=== PATIENT | female | born 1955 | race Caucasian/White ===

== ENCOUNTER 2022-08-14 18:23 | Emergency (ER) | payer MEDICARE, OTHER, SELFPAY ==
[2022-08-14 18:26] VITALS: BP 135/85; PULSE 78; RESP 16; TEMP 36.6; O2SAT 99
[2022-08-14 18:42] LABS: Appearance Urine Cloudy (Clear); Bilirubin Urine Negative (Negative); Blood Urine 3+ (Negative); Color Urine Yellow (Yellow); Glucose Urine UA Negative (Negative); Ketones Urine Negative (Negative); Leukocyte Esterase Ur 1+ LEU/UL (Negative); Nitrate Urine Negative (Negative); Protein Urine 1+ mg/dL (Negative); Specific Grav Ur >= 1.030 (1.001-1.035); Urobilinogen Urine 0.2 mg/dL (<2.0)
[2022-08-14 18:51] LABS: Mucus Urine Few /lpf; RBC Urine >75 /hpf (0-2); Squamous Epithelial Cell Urine Moderate /hpf (Few); WBC Urine >75 /hpf
[2022-08-14 18:57] LABS: Add Urine Microscopic? YES
--- NOTE | 2022-08-14 19:34 | PC.NURSE ---
Patient left at 1932
== END 2022-08-14 19:33 | disposition left against medical advice (07) ==
PROVIDERS: Emergency Provider Emergency Medicine; PCP Family Medicine
DX: R10.9 Unspecified abdominal pain (principal)
CPT/HCPCS: 81001; 87086; 99199

== ENCOUNTER 2022-10-30 08:31 | Outpatient (CLI) | payer MEDICARE, OTHER, SELFPAY ==
[2022-10-30 09:34] LABS: Basophils Percent Auto 0.8 % (0.2-1.2); Eosinophils Absolute Auto 0.3 K/mm3 (0-0.3); Eosinophils Percent Auto 7.5 % (0-4.4); Hematocrit 41.3 % (37.0-47.0); Hemoglobin 13.5 g/dL (12.0-15.0); Immature Granulocyte Absolute 0.01 K/mm3 (0.00-0.031); Immature Granulocyte Percent A 0.3 % (0-0.5); Lymphocytes Absolute Auto 1.22 K/mm3 (0.9-3.2); Lymphocytes Percent Auto 32.9 % (18.3-44.2); Mean Corpuscular HGB Conc 32.7 g/dl (32-36); Mean Corpuscular Volume 97.9 fl (80-100); Mean Platelet Volume 9.6 fl (7.4-10.4); Monocytes Absolute Auto 0.4 K/mm3 (0.1-0.6); Monocytes Percent Auto 11.6 % (2.6-8.5); Neutrophils Absolute Auto 1.7 K/mm3 (1.3-6.7); Neutrophils Percent Auto 46.9 % (45.5-73.1); Platelet Count Result 234 k/mm3 (150-375); Red Blood Count 4.22 M/mm3 (4.2-5.4); White Blood Count 3.7 K/mm3 (4.5-10.0)
[2022-10-30 09:47] LABS: Anion Gap 5 mmol/L (8-16); Aspartate Amino Transferase 26 U/L (14-36); Blood Urea Nitrogen 17 mg/dL (7-17); Calcium 8.4 mg/dL (8.4-10.2); Carbon Dioxide 29 mmol/L (22-30); Chloride 106 mmol/L (98-107); Estimated Glomerular Filt Rate > 60; Glucose 116 mg/dL (65-110); Potassium 4.1 mmol/L (3.4-5.0); Sodium 140 mmol/L (137-145)
== END 2022-10-30 08:32 | disposition home or self-care (01) ==
PROVIDERS: PCP Family Medicine; Visit Provider Orthopaedic Surgery
DX: M17.0 Bilateral primary osteoarthritis of knee (principal); Z79.1 Long term (current) use of non-steroidal anti-inflammatories (NSAID)
CPT/HCPCS: 36415; 80048; 84450; 85025

== ENCOUNTER 2022-12-25 00:32 | Day surgery (SDC) | payer MEDICARE, OTHER, SELFPAY ==
[2022-12-15 14:07] VITALS: BMI 27.8
--- NOTE | 2022-12-15 14:28 | PC.NURSE ---
PRE-OP INSTRUCTIONS, PLEASE READ CAREFULLY Report to the Outpatient Waiting Room, entrance under the green pavilion located off [facility], at time _0600_ on date _12/25/22_. Planned Procedure Time: _0730_. Time changes happen often and if your time is changed the preop area will call you the afternoon before. - You and your visitor will be asked to self-screen and do not enter if you have any COVID symptoms. - A mask is optional within the hospital at this time. Patients may have clear liquids (water, carbonated beverages, clear teas, apple juice) until 3 hours prior to surgery (0430 AM) with a maximum of 20 ounces. - No food from midnight until time of surgery Take the following medications with a SIP of water the morning of surgery: _NONE_ DO NOT STOP ANY OF YOUR OTHER PRESCRIPTION MEDICATIONS PRIOR TO SURGERY ?EXCEPT THE FOLLOWING Medications to discontinue per physician DR. GOMEZ - _MELOXICAM 7 DAYS PRIOR TO SURGERY, Date to take last dose _ Medications to discontinue per ANESTHESIA - _VITAMINS AND SUPPLEMENTS 3 DAYS PRIOR TO SURGERY, Date to take last dose 12/21/22_ Please no make-up, nail kinyarwanda, hairspray, perfume, deodorant, or body powder the day of surgery. No jewelry (including any body piercings) or valuables the day of surgery, leave them at home. Please take a shower or bath the night before, or the morning of, surgery with an antibacterial soap. Wear comfortable, loose fitting clothing. Children are encouraged to wear pajamas. - Jewelry must be removed prior to entering the operating room. Rings and piercings that are not removed may be cut off. - The hospital will not accept responsibility for valuables. - Please leave all valuables, including medications, at home the day of surgery. If you are going home after surgery, a licensed local intermodal truck driver must drive you home. - NO public transportation without another adult if you receive anesthesia. - We recommend that an adult stay with you for 24 hours following discharge. - We also recommend that you do not drive, make important decision, drink alcoholic beverages, or take any drugs that were not prescribed by your health care provider for at least 24 hours after your discharge time. For Pediatric surgeries, we recommend two adults accompany the child home. Follow any additional instructions given to you from your surgeon. If you or anyone in your household have experienced Covid symptoms in the past week, please notify your surgeon or the nurse liaison at the phone number below for possible testing. Telephone instructions given to and asked if any additional questions and then verbalized understanding. Patient advised to call surgeon office or pre surgery nurse liaison [phone] if any additional questions.
--- NOTE | 2022-12-24 16:11 | PM.IMHP ---
H&P: HPI History of Present Illness Date/Time: 12/24/22 16:11 Chief Complaint: Left foot pain and deformity Narrative: 67-year-old woman with left toe pain and deformity, cyst and heel pain. Unrelieved with conservative measures including cortisone injection, accommodative shoes, custom inserts, toe strapping. Pain with daily activity and any weight-bearing on the foot. Interferes with daily weight-bearing requirements. Presents for operative treatment. Review of Systems Constitutional: Constitutional: Denies fever(s) Eyes: Eyes: Denies blurry vision ENT: Reports Normal hearing present Cardiovascular: Cardiovascular: Denies chest pain and Denies dyspnea Respiratory: Respiratory: Denies dyspnea and Denies wheezing Gastrointestinal: Gastrointestinal: Denies abdominal pain Genitourinary: Genitourinary: Denies urinary urgency Musculoskeletal: Musculoskeletal: Reports as per HPI and Denies numbness Integumentary/Breasts: Skin/Breast: Denies changing lesions and Denies sores Neurologic: Reports Normal hearing present, Denies behavioral changes, Denies confusion, Denies numbness and Denies convulsions Psychiatric: Psychiatric: Denies behavioral changes, Denies confusion and Denies hallucinations Endocrine: Endocrine: Denies heat intolerance Hematologic/Lymphatic: Hematologic/Lymphatic: Denies easy bleeding Allergic/Immunologic: Allergic/Immunologic: Denies wheezing PMFSH Past Medical History Medical History Arthritis Claustrophobia Ganglion cyst of left foot Hallux rigidus of left foot Hearing loss Heart beat abnormality HLD (hyperlipidemia) Kidney stones 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 Plantar fasciitis of left foot Skin cancer SOB (shortness of breath) on exertion Surgical History Surgical History History of bladder surgery History of intestinal surgery Rectum History of toe surgery Family History Family History Other Arthritis Bone cancer Cerebrovascular accident Diabetes mellitus Lung cancer Social History Social History Smoking status: Never smoker Second hand tobacco smoke exposure: No Alcohol intake: never Substance use: never Substance use type: does not use Living arrangements: with family Additional living arrangements comments: LIVES WITH [facility] [phone], [place] [phone] Occupation/Education: occupation Gender identity (if verbalized by the patient): Female Spiritual care concerns: No Meds Home Medications and Allergies Home Medications Medication Instructions Recorded Confirmed Type Saccharomyces boulardii [Probiotic 1 tab-cap PO DAILY 01/09/22 12/15/22 History (S.boulardii)] ascorbate calcium (vitamin C) 500 500 mg PO DAILY 01/09/22 12/15/22 History mg tablet aspirin 81 mg capsule 81 mg PO DAILY 01/09/22 12/15/22 History evening primrose oil-linoleic 1 cap PO 3XW 01/09/22 12/15/22 History acid-gamolenic acid 1,000 mg capsule (Kimmell Oil) folic acid 800 mcg tablet 0.8 mg PO DAILY 01/09/22 12/15/22 History krill oil 350 mg-om-3 90 mg-dha 24 1 cap PO DIRECTED 01/09/22 12/15/22 History mg-epa 50 mg-phospholipids capsule multivitamin,tx-minerals 1 tablet PO DAILY 01/09/22 12/15/22 History polyethylene glycol 3350 17 17 g PO DAILY PRN constipation 01/09/22 12/15/22 History gram/dose oral powder (Miralax) rosuvastatin 10 mg tablet (Crestor) 10 mg PO DAILY 01/09/22 12/15/22 History vitamin E 200 unit capsule 400 unit PO DAILY 01/09/22 12/15/22 History meloxicam 15 mg tablet 15 mg PO DAILY PRN Pain 10/14/22 12/15/22 History alendronate 70 mg tablet 70 mg PO WEEKLY 12/15/22 12/15/22 History bitter melon extract 750 mg tablet 750 mg PO DAILY 12/15/22 12/15/22 History famotidine 20 m
[2022-12-25] VITALS (9 sets, daily range): BP systolic 126–134; BP diastolic 68–85; PULSE 58–81; RESP 12–20; TEMP 36.6; O2SAT 94–100
--- NOTE | ~2022-12-25 | XR_ITS ---
EXAMINATION: XR surgery orthopedic DATE: 12/25/2022 09:35 INDICATION: Left foot surgery TECHNIQUE: 3 fluoroscopic images of the left forefoot were obtained during procedure performed by Dr. Martin. Radiologist was not present for the imaging or procedure. The amount of fluoroscopy time us ed during this procedure was 0.1 minutes. COMPARISON: 10/14/2022 FINDINGS: First metatarsophalangeal arthrodesis with compression screw and dorsal plate and screw fixation. Ida rtening osteotomy at the neck of the second metatarsal which is fixed with a pair of dorsal to planta r directed screws. The second was also fixed with an axially directed percutaneous pin which extends from the distal phalanx across the middle and proximal phalanges of the head of the second metatarsal and into the diaphysis proximal to the osteotomy. Expected small amount of gas within the mildly wid ened second metatarsophalangeal joint space. Additional small amount of gas in the medial side of the first metatarsophalangeal joint. Alignment appears near-anatomic. No fractures identified. IMPRESSION: 1. Expected appearance post instrumented first metatarsophalangeal arthrodesis and likely shortening osteotomy at the neck of the second metatarsal. See procedure note for further detail. Reviewed, dictated and finalized at location A. IMPRESSION: 1. Expected appearance post instrumented first metatarsophalangeal arthrodesis and likely shortening osteotomy at the neck of the second metatarsal. See proce dure note for further detail.
--- NOTE | 2022-12-25 06:56 | WPDANESEPPF ---
Anes - Initial Pre Proc Eval Procedure: Operation Date: 12/25/22 07:30 Proposed Procedures p Left Hallux Metarsophalangeal Arthrodesis, - Deepak Martin MD s Left Second Crossover Toe Reconstruction, Excision Ganglion Cyst Left Foot, - Deepak Martin MD s Left Foot Ossatron Shock Wave Treatment - Deepak Martin MD Date/Time: 12/25/22 06:56 Surgeon: Deepak Martin MD Pre Op Diagnosis: left hallux rigidus/arthritis, crossover 2nd toe, Patient Data Age: 67 Gender: F Height: 1.65 m Weight: 75.9 kg Allergies Allergy/AdvReac Type Severity Reaction Status Date / Time ceftriaxone Allergy Intermediate HIVES Verified 12/25/22 06:42 Home Medications Medication Instructions Recorded Confirmed Type Saccharomyces boulardii [Probiotic 1 tab-cap PO DAILY 01/09/22 12/15/22 History (S.boulardii)] ascorbate calcium (vitamin C) 500 500 mg PO DAILY 01/09/22 12/15/22 History mg tablet aspirin 81 mg capsule 81 mg PO DAILY 01/09/22 12/15/22 History evening primrose oil-linoleic 1 cap PO 3XW 01/09/22 12/15/22 History acid-gamolenic acid 1,000 mg capsule (Scroggins Oil) folic acid 800 mcg tablet 0.8 mg PO DAILY 01/09/22 12/15/22 History krill oil 350 mg-om-3 90 mg-dha 24 1 cap PO DIRECTED 01/09/22 12/15/22 History mg-epa 50 mg-phospholipids capsule multivitamin,tx-minerals 1 tablet PO DAILY 01/09/22 12/15/22 History polyethylene glycol 3350 17 17 g PO DAILY PRN constipation 01/09/22 12/15/22 History gram/dose oral powder (Miralax) rosuvastatin 10 mg tablet (Crestor) 10 mg PO DAILY 01/09/22 12/15/22 History vitamin E 200 unit capsule 400 unit PO DAILY 01/09/22 12/15/22 History meloxicam 15 mg tablet 15 mg PO DAILY PRN Pain 10/14/22 12/15/22 History alendronate 70 mg tablet 70 mg PO WEEKLY 12/15/22 12/15/22 History bitter melon extract 750 mg tablet 750 mg PO DAILY 12/15/22 12/15/22 History famotidine 20 mg tablet 20 mg BID 12/15/22 12/15/22 History glucosamine 750 nw-tdvdzpugvik-ter 2 tablet PO HS 12/15/22 12/15/22 History no1 644 mg-C 30 mg-kailash 1 mg tablet (Osteo Bi-Flex Triple Strength) selenium 200 mcg capsule 200 mcg PO DAILY 12/15/22 12/15/22 History Patient hx anesthesia problems: none Family hx anesthesia problems: none Results Review: All pre-operative results and documents have been reviewed as part of the pre-operative evaluation. 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 Plantar fasciitis of left foot Skin cancer SOB (shortness of breath) on exertion Surgical History Surgical History History of bladder surgery History of intestinal surgery Rectum History of toe surgery Family History Family History Other Arthritis Bone cancer Cerebrovascular accident Diabetes mellitus Lung cancer Social History Social History Smoking status: Never smoker Second hand tobacco smoke exposure: No Alcohol intake: never Substance use: never Substance use type: does not use Living arrangements: with family Additional living arrangements comments: LIVES WITH [facility] [phone], [place] [phone] Occupation/Education: occupation Gender identity (if verbalized by the patient): Female Spiritual care concerns: No Anes - Eval Final PreProcedure Day of Procedure 12/25/22 06:56 Patient weight: overweight Heart: regular rate and rhythm Lungs: clear to auscultation Airway: Mallampati scale class II Neurological: alert and oriented Last oral intake: >/= 8 hours ASA classification: II Emergent: no Anesthetic plan: proceed A
--- NOTE | 2022-12-25 07:05 | WPDHPUPDATE1 ---
History and Physical Update Update Date/Time: 12/25/22 07:05 History and Physical has been reviewed, including an updated exam of the patient. There are NO changes in the patient's condition. Risks, benefits, and alternatives have been discussed and questions answered. Patient agrees to proceed with procedure.
[2022-12-25] MEDS: LACTATED RINGERS 1,000 ML 30 ML IV CONT ×2 (07:07→09:46)
[2022-12-25] MEDS: KETOROLAC 15 MG/ML VIAL (*BKC) IV PUSH (07:07)
[2022-12-25] MEDS: FAMOTIDINE 20 MG/2 ML VIAL IV PUSH (07:08)
[2022-12-25] MEDS: CLINDAMYCIN 900 MG/D5W 50 ML 900 MG/50 ML PIGGYBACK 50 MG IVPB (07:32)
[2022-12-25] MEDS: BUPivacaine HCL 0.5% 10 ML AMP 30 ML INFILTRATE (08:58)
--- NOTE | 2022-12-25 10:02 | W.PM.PROC2 ---
Procedure Note - Detailed Date of Procedure 12/25/22 Pre-op Diagnosis left hallux rigidus/arthritis, crossover 2nd toe, plantar fasciitis Post-op Diagnosis Same Procedure Performed Left hallux metatarsophalangeal arthrodesis, 2nd metatarsal osteotomy, heel Ossatron shockwave. Surgeon Deepak Martin MD Direct Sales Professional 1st circulation assistant Anesthesia General Indications 67-year-old woman with severe left hallux rigidus and degenerative changes from previous operative treatment as well as 2nd crossover toe deformity. Plantar heel pain. Failed conservative treatment with comminuted shoes, inserts and anti-inflammatories. Failed stretching regimen and therapy. Presents now for operative treatment. Description of Procedure Patient identified in the preoperative holding. Informed consent given. Operative extremity marked. Patient marked the area of maximal tenderness on the heel with indelible ink. Patient brought to the operating room where underwent general anesthesia by anesthesia team. Positioned supine on operating room table. Time-out performed confirming the patient, site of the surgery and the plan. Shockwave unit then positioned for the left heel. Ultrasound gel applied to the heel. Shockwave then applied to plantar heel at an average of 19 kV for 2000 shock deliveries. Concentrated around area of marked maximal tenderness as well as diffusely plantar fascia, heel area and Achilles tendon insertion. Ultrasound gel then removed. hallux and 2nd toe then addressed. Patient received intravenous antibiotics. Time-out performed confirming the patient, site of the surgery and the plan. foot prepped and draped usual sterile surgical fashion using a ChloraPrep skin solution. Foot and ankle exsanguinated and a calf tourniquet inflated to 225 mmHg. Longitudinal incision made dorsum of hallux centered over metatarsophalangeal joint Utilizing the previous surgical incision with a 15 blade knife. Hemostasis controlled electrocautery. Extensor hallucis tendon retracted laterally and a dorsal capsulotomy performed in line with the longitudinal skin incision. Soft tissue released off of the metatarsal to expose the joint. Extensive scar and fibrosis of the joint noted. Rongeur used to remove excess osteophytes. Reaming of the joint then performed with the Arthrex joint preparation reamers. Guide pin placed metatarsal and reaming performed size 18 mm. Guide pin then placed in the proximal phalanx and reaming performed to a size 18 mm. Wound thoroughly irrigated and debris removed. Plantar osteophytes carefully removed as well as the medial sesamoid. Joint then aligned and provisionally pinned. Alignment checked with image intensification 3rd fixation achieved with a dorsal locking plate with compression and a 3.5 mm lag screw. Image intensification confirmed final position. Wound irrigated and capsule closed with 0 Vicryl interrupted suture. Subcutaneous tissue repaired with 3-0 Monocryl interrupted suture and skin repaired with 4-0 nylon running suture. 2nd toe then addressed. Dorsal longitudinal incision made over the hallux metatarsophalangeal joint. Hemostasis controlled electrocautery. Extensor tendon retracted laterally and dorsal capsulotomy performed with 15 blade knife. The medial and lateral collateral ligaments were released. The joint was inspected. There was noted to be moderate degenerative changes on the dorsal aspect of the metatarsal head and the medial aspect of the proximal phalanx articular surface. The plantar plate was released off the metatarsal bluntly. Transverse osteotomy then performed from distal to proximal through the 2nd metatarsal articular surface. This allowed the metatarsal head to retract proximally. Once this had been completed the crossover deformity was noted to be reduced. Plantar plate was otherwise noted to be intact. The metatarsal head was provisionally pinned and checked with image intensification then fixed
--- NOTE | 2022-12-25 12:04 | SUR.PHASEII ---
postop shoe applied and education provider patient has walker in car.
== END 2022-12-25 12:02 | disposition home or self-care (01) ==
PROVIDERS: PCP Family Medicine; Visit Provider Orthopaedic Surgery
PROC: (CPT 28750; principal; 2022-12-25 07:30)
PROC: (CPT 28890; 2022-12-25 07:30)
PROC: (CPT 28890; 2022-12-25 07:30)
DX: M20.22 Hallux rigidus, left foot (principal); M20.5X2 Other deformities of toe(s) (acquired), left foot; M72.2 Plantar fascial fibromatosis; M19.072 Primary osteoarthritis, left ankle and foot; E78.5 Hyperlipidemia, unspecified; Z79.82 Long term (current) use of aspirin
CPT/HCPCS: 28890; 28750; 28308; 99199; C1713; J0131; J1100; J1885; J2250; J2370; J2405; J2704; J3010; J7120

== ENCOUNTER 2023-08-12 10:16 | Outpatient (CLI) | payer MEDICARE, OTHER, SELFPAY ==
--- NOTE | 2023-08-12 11:30 | NEURO_ITS ---
Impression: # Complains of pain and discomfort in feet. # Normal Nerve Conduction Study except absent left sural sensory response. # No Tarsal Tunnel Syndrome. # Needle/EMG exam not requested. # Clinical correlation recommended. Nerve Conduction Studies Anti Sensory Summary Table Stim Site NR Peak (ms) P-T Amp (?V) Site1 Site2 Delta-P (ms) Dist (cm) Eddie (m/s) Left Saphenous Anti Sensory (Ant Med Mall) 14cm 3.2 0.1 14cm Ant Med Mall 3.2 0.0 Right Saphenous Anti Sensory (Ant Med Mall) 14cm 3.0 5.6 14cm Ant Med Mall 3.0 0.0 Left Sup Fibular Anti Sensory (Ant Lat Mall) 14 cm 3.2 16.0 14 cm Ant Lat Mall 3.2 16.0 50 Right Sup Fibular Anti Sensory (Ant Lat Mall) 14 cm 3.7 8.4 14 cm Ant Lat Mall 3.7 16.0 43 Left Sural Anti Sensory (Lat Mall) NO RESPONSE Calf NR Calf Lat Mall 16.0 Right Sural Anti Sensory (Lat Mall) Calf 3.7 17.5 Calf Lat Mall 3.7 16.0 43 Motor Summary Table Stim Site NR Onset (ms) O-P Amp (mV) Site1 Site2 Delta-0 (ms) Dist (cm) Eddie (m/s) Left Lateral Plantar Motor (ADM) Med Mall 4.1 0.4 Right Lateral Plantar Motor (ADM) Med Mall 4.1 2.3 Left Peroneal Motor (Vastus Med) Ankle 3.8 1.6 Popit Ankle 8.6 41.0 48 Popit 12.4 1.5 Right Peroneal Motor (Vastus Med) Ankle 3.8 3.3 Popit Ankle 8.3 40.0 48 Popit 12.1 3.6 Left Tibial Motor (Abd Rojas Brev) Ankle 4.0 2.7 Knee Ankle 9.0 41.0 46 Knee 13.0 2.1 Right Tibial Motor (Abd Rojas Brev) Ankle 4.3 5.6 Knee Ankle 8.9 42.0 47 Knee 13.2 3.0 F Wave Studies NR F-Lat (ms) L-R F-Lat (ms) Left Peroneal (Mrkrs) (EDB) 58.55 0.47 Right Peroneal (Mrkrs) (EDB) 58.08 0.47 Left Tibial (Mrkrs) (Abd Hallucis) 58.80 0.42 Right Tibial (Mrkrs) (Abd Hallucis) 59.22 0.42 MTDD
== END 2023-08-12 10:17 | disposition home or self-care (01) ==
LOC: ANHNEURO 10:17
PROVIDERS: Visit Provider Podiatrist Foot & Ankle Surgery
DX: G60.3 Idiopathic progressive neuropathy (principal)
CPT/HCPCS: 95912

== ENCOUNTER 2024-11-11 08:31 | Outpatient (CLI) | payer MEDICARE, OTHER, SELFPAY ==
--- NOTE | ~2024-11-11 | CT_ITS ---
EXAMINATION: CT hip RT wo con DATE: 11/11/2024 08:57 INDICATION: Right hip pain. TECHNIQUE: Computed tomography (CT) of the right hip was performed without intravenous contrast. Auto mated exposure control and iterative reconstruction technique were employed. The dose-length product was 369.90 mGy-cm. COMPARISON: Pelvis and hip radiographs 06/22/2024 FINDINGS: Alignment is normal. No fracture. There is mild right hip osteoarthritis. IMPRESSION: 1. Mild right hip osteoarthritis. Reviewed, dictated and finalized at location A. [facility]
--- OUTSIDE RECORDS SUMMARY | 2024-11-11 08:47 | XMS_ITS | Encounter Summary ---
Author Organization [facility] Address [address] [place] [address] Care Team Providers Care Insurance Executive Name Role Phone Bishop Rocha MD Primary Care Provider [phone] Callie Johnston MD Unavailable [phone] Sylvester Gallagher MD Primary Care Provider [phone] Encounter Details Date Type Department Care Team (Late st Contact Info) Description 07/31/2021 Therapy Plan [facility] Family & Internal Medicine [address] [address] Bishop Rocha MD [address] [address] Social History Tobacco Use Types Packs/Day Years Used Date Smoking Tobacco: Never Smokeless Tobacco: Never Alcohol Use Standard Drinks/Week Comments No 0 (1 standard drink = 0.6 oz pur e alcohol) AUDIT-C Answer Date Recorded Frequency of Alcohol Consumption Never 09/09/2018 Average Number of Drinks Not on file 019 Frequency of Binge Drinking Not on file 11/2018 PHQ-2 Answer Date Recorded PHQ-2 Score - If the patient scores above 3, please move on to questions 3-9 0 12/24/2020 Education Answer Date Recorded What is the highest level of school you have completed or the highest degree you have received? GED or equivalent 11/2018 Comments No Sex and Gender Information Value Date Recorded Sex Assigned at Female 09/21/2018 7:05 PM FISHING CAPTAIN Legal Sex Female 7:34 PM CDT Gender Identity Female 09/21/2018 7:05 PM FISHING CAPTAIN Sexual Orientation Not on file Occupation Industry Job Start Date Job End Date Not on file Not on file Not on file Not on file COVID-19 Exposure Response Date Recorded In the last month, have you been in contact with someone who was confirmed or suspected to have Coronavirus / COVID-19? No / Unsure 07/22/2021 10:25 AM FISHING CAPTAIN documented as of this encounter Plan of Treatment Upcoming Encounters Date Type Department Care Team (Late st Contact Info) Description 01/04/2025 1:00 PM CDT Appointment [facility] [address] [place] [address] Callie Johnston MD [address] [place], [place] [id number] 01/25/2109 Scan HEALTH INFO SRVCS Scanned, Documents Lab (SCAN) documented as of this encounter Visit Diagnoses Diagnosis Age-related osteoporosis without current pathological fracture- Primary Senile osteoporosis documented in this encounter Additional Health Concerns Infection Onset Date Last Indicated Resolved Time COVID-19 Rule Out 09/11/2022 09/11/2022 09/11/2022 8:23 AM FISHING CAPTAIN COVID-19 Rule Out 09/11/2022 09/11/2022 09/13/2022 6:05 PM FISHING CAPTAIN COVID-19 Rule Out 08/01/2023 08/01/2023 08/01/2023 2:23 PM FISHING CAPTAIN COVID-19 Confirmed 08/01/2023 08/01/2023 12:32 AM FISHING CAPTAIN COVID-19 Rule Out 11/12/2023 11/12/2023 11/12/2023 8:00 AM FISHING CAPTAIN COVID-19 Rule Out 08/01/2024 08/01/2024 08/01/2024 7:43 AM FISHING CAPTAIN documented as of this encounter Care Teams Insurance Executive Relationship Specialty Start Date End Date Bishop Rocha MD PCP - General INTERNAL MEDICINE 09/09/18 09/30/21 [place] [address] [place], [place] [id number] PCP - General FAMILY PRACTICE 10/01/21 Callie Johnston MD [address] [place] [address] [place] [address] Consulting Physician SANAZ 06/27/20 documented as of this encounter
--- OUTSIDE RECORDS SUMMARY | 2024-11-11 08:48 | XMS_ITS | Encounter Summary ---
Author Organization [facility] Address [address] [place] [address] Care Team Providers Care Internet Ecommerce Specialist Name Role Phone Abner Graham MD Primary Care Provider [phone] Encounter Details Date Type Department Care Team (Late st Contact Info) Description 03/28/2020 Lab Requisition [facility] [address] [place] [address] Magdaleno Park MD [address] [place] [address] Social History Tobacco Use Types Packs/Day Years Used Date Smoking Tobacco: Never Alcohol Use Standard Drinks/Week Comments No 0 (1 standard drink = 0.6 oz pur e alcohol) Sex and Gender Information Value Date Recorded Sex Assigned at Not on file Gender Identity Not on file Sexual Orientation Not on file documented as of this encounter Plan of Treatment Not on file documented as of this encounter Procedures Procedure Name Priority Date/Time Associated Diagnosis Comments DERMATOPATHOLOGY Routine 03/27/2020 12:0 0 AM CDT documented in this encounter Results * DERMATOPATHOLOGY (03/27/2020 12:00 AM CDT) Case Report Dermatopathology Report Case: [id number] Authorizing Provider: Magdaleno Park MD Collected: 03/27/2020 12:00 AM Ordering Location: [facility] Received: 03/28/2020 01:53 PM Pathologist: Bernadette Hill MD Specimen: Skin, left distal anteromedial pretibia 0 5:49 PM CDT DERMATOPATHOLOGY LABORATORY Final Diagnosis Specimen A. SKIN, left distal anteromedial pretibia: SEBORRHEIC KERATOSIS, INFLAMED (L82.0) 0 5:49 PM CDT DERMATOPATHOLOGY LABORATORY Clinical History R/O SCC, BCC, ISK. 0 5:49 PM CDT DERMATOPATHOLOGY LABORATORY Gross Description Specimen A: Received is one formalin filled container labeled with the patient's name and designated left distal anteromedial pretibia. The specimen consists of a shave biopsy measuring [id number]. Jar 0. 0 5:49 PM CDT DERMATOPATHOLOGY LABORATORY Microscopic Description Specimen A. SKIN, left distal anteromedial pretibia: There is hyperkeratosis, parakeratosis, papillomatosis, and acanthosis of the epidermis. There is a lymphohistiocytic infiltrate within the papillary dermis that is focally lichenoid. 0 5:49 PM CDT DERMATOPATHOLOGY LABORATORY Disclaimer An external and internal positive and negative controls are appropriate for the histochemical, immunohistochemical and immunofluorescence stain(s) in this case (if any), except where stated explicitly. The performance characteristics of the stain(s) cited in this report were developed and its performance characteristic determined by the Dermatopathology Laboratory at [facility], directed by Dr. Sebastian Hill. These tests need not be, and therefore are not, approved by the [place] Food and Drug Administration. The tests are used for clinical purposes. Billing Codes Specimen Charges Stain Charges 72156 1 0 5:49 PM CDT DERMATOPATHOLOGY LABORATORY Embedded Images 0 5:49 PM CDT DERMATOPATHOLOGY LABORATORY Pathology/Cytolog y TISSUE SPECIMEN FROM SKIN / Unknown 03/27/2020 03/28/2020 1:53 PM CDT Magdaleno Park MD LAB - PATHOLOGY/CYTO LOGY ORDERABLES DERMATOPATHOLOGY LABORATORY [facility] - Department of Dermatology [facility]/[address] [phone] documented in this encounter Visit Diagnoses Not on filedocumented in this encounter Care Teams Internet Ecommerce Specialist Relationship Specialty Start Date End Date Abner Graham MD [address] [place] [address] PCP - General 03/28/20 documented as of this encounter
--- OUTSIDE RECORDS SUMMARY | 2024-11-11 08:48 | XMS_ITS | Referral Summary ---
Author Organization [facility] Address [address] [place] [address] Care Team Providers Care Web Operations Lead Name Role Phone Abner Graham MD Primary Care Provider [phone] Source Comments [facility],non-owned Affiliates and Associated Physician Practices is amultiple site organization consisting of ambulatory clinics and hospital sitesin [place], [place], [place] and [place]. This disclosure is being madepursuant to the Care Everywhere program and may not contain all information available regarding this patient. Last updated 18.[facility] Allergies Active Allergy Reactions Criticality Noted Date Comments Ceftriaxone Sodium 12/11/2009 Itching Medications * Be aware that medications may not be up to date on this document. Alwaysverify current medications with the patient. Medication Sig Dispensed Refills Start Date End Date Status esomeprazole (NEXIUM) 40 MG capsule Take 40 mg by mouth daily before breakfast. Active omeprazole (PRILOSEC) 20 MG capsule Take 20 mg by mouth. prn Active ezetimibe-simvastatin (VYTORIN) 10-10 MG tablet Take 1 Tab by mouth at bedtime. Active Other Mvi with potasium, am Active Other Mvi with b c calicium am Active docusate sodium (COLACE) 100 MG capsule Take 1 Cap by mouth 2 times daily. 60 2 01/08/2010 Active Active Problems Problem Noted Date Diagnosed Date Uterovaginal prolapse, incomplete 01/07/2010 Social History Tobacco Use Types Packs/Day Years Used Date Smoking Tobacco: Never Alcohol Use Standard Drinks/Week Comments No 0 (1 standard drink = 0.6 oz pur e alcohol) Sex and Gender Information Value Date Recorded Sex Assigned at Not on file Gender Identity Not on file Sexual Orientation Not on file Last Filed Vital Signs Vital Sign Reading Time Taken Comments Blood Pressure 130/82 11/21/2013 9:38 AM CDT Pulse 73 01/08/2010 8:30 AM CDT Temperature 37.1 C (98.7 F) 01/08/2010 8:30 AM CDT Respiratory Rate 20 01/08/2010 8:30 AM CDT Oxygen Saturation 96% 01/08/2010 8:30 AM CDT Inhaled Oxygen Concentration - - Weight 72.1 kg (159 lb) 11/21/2013 9:38 AM CDT Height 165.1 cm (5' 5 ) 11/21/2013 9:38 AM CDT Body Mass Index 26.46 11/21/2013 9:38 AM CDT Plan of Treatment Not on file Advance Directives * Full Code (Latest Code Status on File) Date Activated Date Inactivated Comments 01/07/2010 1:56 PM 01/09/2010 12:02 AM Care Teams Web Operations Lead Relationship Specialty Start Date End Date Abner Graham MD [address] [place] [address] PCP - General 03/28/20
--- OUTSIDE RECORDS SUMMARY | 2024-11-11 08:48 | XMS_ITS | Clinical Summary ---
Author Organization [address] Address [address] [place] [address] Care Team Providers Care Resin Filterer Name Role Phone Bishop Rocha MD Primary Care Provider + Allergies Active Allergy Reactions Criticality Noted Date Comments Ceftriaxone Other (See comments) Reaction: ITCHY AND RED, Medications rosuvastatin (CRESTOR) 10 mg tablet Take 1 tablet by mouth daily 06/27/2016 Active famotidine (PEPCID) 40 mg tablet 02/20/2021 Active rik fias-cemhxnab-t amolenic ac 1,000 mg capsule Take 1 capsule by mouth daily Active KRILL OIL ORAL Take by mouth Active folic acid (FOLVITE) 800 mcg tablet Take 1 tablet by mouth daily 06/21/2018 Active vitamin E acid succinate (vitamin E succinate) 268 mg (400 unit) tablet Take 1 tablet by mouth daily 06/21/2018 Active polyethylene glycol (MIRALAX) 17 gram/dose powder Take 17 g by mouth daily as needed Active aluminum-magnes ium hydroxide-simet hicone (MAALOX) suspension 200-200-20 mg/5 mL Take 10 mL by mouth as needed Active Lacto.acidophil us-Bif.animalis 32 billion cell capsule Take 1 capsule by mouth daily Active aspirin 81 mg enteric coated tablet Take 1 tablet by mouth daily Active Active Problems No known active problems Surgical History Surgery Date Site/Laterality Comments BLADDER SURGERY Medical History Medical History Date Comments Shoulder fracture GERD (gastroesophageal reflux disease) HL (hearing loss) Difficulty swallowing Family History Medical History Relation Name Comments Alzheimer's disease Brother Cancer Brother Heart disease Father Stroke Mother Cancer Sister Relation Name Status Comments Brother Father Mother Sister Social History Tobacco Use Types Packs/Day Years Used Date Smoking Tobacco: Never Smokeless Tobacco: Never Personal Safety Answer Date Recorded Getting School Help Needed Not on file 11/06 Comments Unknown Sex and Gender Information Value Date Recorded Sex Assigned at Not on file Legal Sex Female 3:27 AM MDM SR Gender Identity Not on file Sexual Orientation Not on file Obstetrics History Last Filed Vital Signs Vital Sign Reading Time Taken Comments Blood Pressure 121/64 08/23/2014 2:13 PM MDM SR Pulse 70 08/23/2014 2:13 PM MDM SR Temperature - - Respiratory Rate 17 05/28/2021 1:18 PM CDT Oxygen Saturation - - Inhaled Oxygen Concentration - - Weight 72.6 kg (160 lb) 05/28/2021 1:18 PM CDT Height 165.1 cm (5' 5 ) 05/28/2021 1:18 PM CDT Body Mass Index 26.63 05/28/2021 1:18 PM CDT Plan of Treatment Not on file Insurance [facility] Care Teams Resin Filterer Relationship Specialty Start Date End Date Bishop Rocha MD PCP - General Internal Medicine 05/07/21
--- OUTSIDE RECORDS SUMMARY | 2024-11-11 08:48 | XMS_ITS | Continuity of Care Document ---
Author Organization [facility] Address [address] [place] [address] Care Team Providers Care Drainlayer Name Role Phone Zelda Johnston MD Unavailable [phone] José Miguel Gallagher MD Primary Care Provider [phone] Encounters Date Type Department Care Team Description 08/01/2024 Travel 08/01/2024 7:40 AM MECHANICAL SERVICE REPRESENTATIVE Office Visit [facility] Family & Internal Medicine [facility] [address] [place] [address] Mari Crystal PA URI (Productive cough x 4 days ) 08/01/2024 12:52 PM MECHANICAL SERVICE REPRESENTATIVE - 08/01/2024 11:59 PM MECHANICAL SERVICE REPRESENTATIVE Hospital Encounter [facility] [address] [place] [address] Vangie Lay NP Discharge Disposition: Home or Self Care (Routine Discharge) 07/15/2024 12:40 PM MECHANICAL SERVICE REPRESENTATIVE - 07/15/2024 11:59 PM MECHANICAL SERVICE REPRESENTATIVE Hospital Encounter [facility] [address] [place] [address] Vangie Lay NP Discharge Disposition: Home or Self Care (Routine Discharge) 07/15/2024 10:00 AM MECHANICAL SERVICE REPRESENTATIVE Laboratory Only [facility] Family & Internal [facility] [address] [place] [address] Vangie Lay NP 07/15/2024 Travel 07/15/2024 9:20 AM MECHANICAL SERVICE REPRESENTATIVE Office Visit [facility] Family & Internal [facility] [address] [place] [address] Vangie Lay NP Breast Pain (Right side breast pain. Has Hx but states pain is getting worse. ) 07/07/2024 Travel 07/07/2024 9:26 AM CDT - 07/07/2024 11:59 PM CDT Hospital Encounter [facility] [address] [place] [address] Kg Patel MD Discharge Disposition: Home or Self Care (Routine Discharge) 06/20/2024 Travel 06/20/2024 11:20 AM CDT Office Visit [facility] Family & Internal [address] [address] José Miguel Gallagher MD Follow Up; Hyperlipidemia 06/06/2024 Travel 06/06/2024 8:34 AM CDT - 06/06/2024 11:59 PM CDT Hospital Encounter [facility] [address] [place] [address] José Miguel Gallagher MD Discharge Disposition: Home or Self Care (Routine Discharge) 05/13/2024 Telephone [facility] & Internal [address] [address] José Miguel Gallagher MD Question 04/18/2024 Orders Only [facility] General Surgery - [place] [address] [place] [address], [address] [place] [phone] Kg Patel MD 03/25/2024 5:05 PM CDT - 03/25/2024 11:59 PM CDT Hospital Encounter [facility] [address] [place] [address] Rustam Barraza PA Discharge Disposition: Home or Self Care (Routine Discharge) 03/25/2024 3:30 PM CDT - 03/25/2024 5:04 PM CDT Hospital Encounter [facility] [address] [place] [address] Rustam Barraza PA Discharge Disposition: Home or Self Care (Routine Discharge) 03/25/2024 3:00 PM CDT Laboratory Only [facility] Family & Internal [facility] [address] [place] [address] Rustam Barraza PA 03/25/2024 Travel 03/25/2024 3:20 PM CDT Office Visit [facility] Family & Internal [facility] [address] [place] [address] José Miguel Gallagher MD Bowen, Jeremy S, PA Foot Pain (Pt c/o WANG foot pain. Pt symptoms X 3 weeks/) 01/19/2024 Telephone [facility] Multispecialty Care - [facility] [address] [facility], [address] [place] [address] Madi Yanez MD Results 01/18/2024 Orders Only [facility] General Surgery [facility] [address] [facility], [address] [place] [address] Kg Patel MD 01/18/2024 Travel 01/18/2024 3:10 PM CDT Office Visit [facility] General Surgery [facility] [address] [place] [address], [address] [place] [address] Kg Patel MD Follow Up (Patient presents for post op follow up after right breast biopsy on 01/04/2024.) 01/04/2024 9:40 AM CDT - 01/04/2024 12:38 PM CDT Hospital Encounter [facility] [address] [place] [address] Kg Patel MD Discharge Disposition: Home or Self Care (Routine Discharge) 01/04/2024 Travel 01/04/2024 12:39 PM CDT - 01/04/2024 11:59 PM CDT Hospital Encounter [facility] [address] [place] [address] Kg Patel MD Discharge Disposition: Home or Self Care (Routine Discharge) 12/16/2023 Scan [facility] INFO SRVCS Scanned, [facility] 12/15/2023 Telephone [facility] [address] [place] [address], [address] [place] [address] Kg Patel MD Schedule Procedure 12/15/2023 Orders Only [facility] [address] [place] [address], [address] [place] [phone] Kg Patel MD 12/10/2023 Travel 12/10/2023 3:20 PM CDT Office Visit [address], [address] [place] [phone] Kg Patel MD Abnormal Mammography (Patient presents for abnormal mammogram of right breast consult. ) 11/24/2023 Travel 11/24/2023 9:20 AM CDT Office Visit [facility] Internal [address] [address] Trice Washington APRN Cough (Pt c/o productive cough x2-3 weeks, pt was seen here, hasn't improved) 11/20/2023 Travel 11/20/2023 8:00 AM CDT Office Visit [facility] Internal [address] [address] José Miguel Gallagher MD Suture Removal (Sitches removal ); Cough 11/16/2023 Travel 11/16/2023 2:00 PM CDT Office Visit [facility] Internal [address] [address] José Miguel Gallagher MD Suture Removal (Pt is here to get stiches removed on her left leg ) 11/12/2023 Travel 11/12/2023 7:40 AM MECHANICAL SERVICE REPRESENTATIVE Office Visit [facility] Family & Internal Medicine [facility] [address] [place] [address] Amari Dallas NP Congestion (Cough, headache) 11/08/2023 Travel 11/08/2023 10:18 AM MECHANICAL SERVICE REPRESENTATIVE - 11/08/2023 12:51 PM MECHANICAL SERVICE REPRESENTATIVE Emergency [facility] Emergency Room [address] [place] [address] Kimberly Hirsch MD Animal Bite (Son's dog ) Discharge Disposition: Home or Self Care (Routine Discharge) 10/23/2023 Scan [facility] [employer] INFO SRVCS Scanned, [facility] Mammogram (SCAN) 10/23/2023 Travel 10/23/2023 1:38 PM MECHANICAL SERVICE REPRESENTATIVE - 10/23/2023 11:59 PM MECHANICAL SERVICE REPRESENTATIVE Hospital Encounter [facility] [address] [place] [address] Zelda Johnston MD Discharge Disposition: Home or Self Care (Routine Discharge) 10/06/2023 Travel 10/06/2023 12:30 PM MECHANICAL SERVICE REPRESENTATIVE - 10/06/2023 11:59 PM MECHANICAL SERVICE REPRESENTATIVE Hospital Encounter [facility] [address] [place] [address] José Miguel Gallagher MD Discharge Disposition: Home or Self Care (Routine Discharge) 09/15/2023 Travel 09/15/2023 9:54 AM MECHANICAL SERVICE REPRESENTATIVE - 09/15/2023 11:59 PM MECHANICAL SERVICE REPRESENTATIVE Hospital Encounter [facility] [address] [place] [address] Zelda Johnston MD Discharge Disposition: Home or Self Care (Routine Discharge) 08/12/2023 Scan [facility] [employer] INFO SRVCS Scanned, [facility] EMG (SCAN) 08/10/2023 Transcribe Orders [facility] Pre Access Team [address] [place] [address] José Miguel Gallagher MD 08/05/2023 Telephone [facility] [address] [address] José Miguel Gallagher MD COVID-19 (Question ) 08/01/2023 Travel 08/01/2023 1:41 PM MECHANICAL SERVICE REPRESENTATIVE - 08/01/2023 2:48 PM MECHANICAL SERVICE REPRESENTATIVE Emergency [facility] Emergency Room [address] [place] [phone] Marium Olivier MD URI (COVID exposure) Discharge Disposition: Home or Self Care (Routine Discharge) 07/27/2023 Orders Only [address] [address] José Miguel Gallagher MD 07/23/2023 2:40 PM MECHANICAL SERVICE REPRESENTATIVE Allied Health/Nurse Visit [address] [address] José Miguel Gallagher MD Allied Health Visit (Flu shot) 07/23/2023 Travel 07/23/2023 10:52 AM MECHANICAL SERVICE REPRESENTATIVE - 07/23/2023 11:59 PM MECHANICAL SERVICE REPRESENTATIVE Hospital Encounter [facility] [address] [place] [address] José Miguel Gallagher MD Discharge Disposition: Home or Self Care (Routine Discharge) 06/02/2023 12:31 PM CDT - 06/02/2023 11:59 PM CDT Hospital Encounter [facility] [address] [place] [address] José Miguel Gallagher MD Discharge Disposition: Home or Self Care (Routine Discharge) 06/02/2023 9:00 AM CDT Laboratory Only [address] [address] José Miguel Gallagher MD 06/02/2023 Travel 06/02/2023 8:40 AM CDT Office Visit [facility] Internal [address] [phone] José Miguel Gallagher MD Follow Up; Medication Check 05/26/2023 Travel 05/26/2023 7:00 AM CDT Office Visit [address] [phone] Trice Washington APRN Abdominal Pain (Pt c/o lower abdominal pain (X 1 day)with diarrhea that started Thursday. Pt states stools look like red coffee grounds) 04/13/2023 Orders Only [address] [phone] José Miguel Gallagher MD 04/13/[address] [address] José Miguel Gallagher MD Orders 02/01/2023 Scan [facility] INFO SRVCS Scanned, [facility] 12/16/2022 Telephone [facility] [address] [place] [address] José Miguel Gallagher MD Error 12/16/2022 Travel 12/16/2022 10:00 AM CDT - 12/16/2022 11:59 PM CDT Hospital Encounter [facility] Cardiopulmonary Services [address] [place] [address] Funmi Mitchell MD Discharge Disposition: Home or Self Care (Routine Discharge) 10/30/2022 Scan [facility] INFO SRVCS Scanned, [facility] Lab (SCAN) 09/17/[address] [address] José Miguel Gallagher MD Medication 09/17/2022 Travel 09/17/2022 8:00 AM MECHANICAL SERVICE REPRESENTATIVE Office Visit [address] [address] Mari Crystal PA Cough (ACUTE SINUS PRESSURE / COUGH / BLOWING HER NOSE / PHELM AND MUCUS IS A YELLOWISH COLOR ) 09/11/2022 Telephone [facility] One Day Services [address] [place] [address] José Miguel Gallagher MD Called To Cancel Office Appt. (Pt cancelled Prolia injection) 09/11/2022 1:02 PM MECHANICAL SERVICE REPRESENTATIVE - 09/11/2022 11:59 PM MECHANICAL SERVICE REPRESENTATIVE Hospital Encounter [facility] Laboratory [id number] [place] [address] Mari Crystal PA Discharge Disposition: Home or Self Care (Routine Discharge) 09/11/2022 Travel 09/11/2022 8:00 AM MECHANICAL SERVICE REPRESENTATIVE Office Visit [facility] Family & Internal Medicine [facility] [address] [place] [address] Mari Crystal PA Sinus Problem (Cough. Neg covid test/) 08/18/2022 [facility] Message Enc [facility] Admitting [address] [place] [address] At[facility] Provider Discharge Follow-up 08/17/2022 2:50 PM MECHANICAL SERVICE REPRESENTATIVE Anesthesia Event [facility] [place] [address] [place] [address] Ciro Valencia MD Sharma, Lokesh, MD 08/17/2022 3:08 PM MECHANICAL SERVICE REPRESENTATIVE - 08/17/2022 4:47 PM MECHANICAL SERVICE REPRESENTATIVE Surgery [facility] OR [address] [place] [address] Leander Fisher MD CYSTOSCOPY URETEROSCOPY, STONE EXTRACTION, STENT INSERTION 08/15/2022 3:59 AM MECHANICAL SERVICE REPRESENTATIVE - 08/17/2022 5:12 PM MECHANICAL SERVICE REPRESENTATIVE Hospital Encounter [facility]opaedics [address] [place] [address] Miguelina Nguyen MD Discharge Disposition: Home or Self Care (Routine Discharge) 2022 8:11 PM MECHANICAL SERVICE REPRESENTATIVE - 08/15/2022 2:09 AM MECHANICAL SERVICE REPRESENTATIVE Emergency [facility] Emergency Room [address] [place] [address] Marium Olivier MD Back Pain Discharge Disposition: Transfer to [facility] 2022 Scan [facility] INFO SRVCS Scanned, [facility] Lab (SCAN) 2022 Travel 08/08/2022 Travel 08/08/2022 11:55 AM MECHANICAL SERVICE REPRESENTATIVE - 08/08/2022 11:59 PM MECHANICAL SERVICE REPRESENTATIVE Hospital Encounter [facility]amm[facility] [address] [place] [address] Zelda Johnston MD Discharge Disposition: Home or Self Care (Routine Discharge) 08/04/2022 Scan [facility] INFO SRVCS Scanned, [facility] 08/02/2022 Scan [facility] INFO SRVCS Scanned, [facility] 07/28/2022 Travel 07/28/2022 2:40 PM MECHANICAL SERVICE REPRESENTATIVE Office Visit [facility] Family [facility] Internal [address] [address] José Miguel Gallagher MD Acute Note (Cut arm on fer fence) 07/28/2022 Telephone [facility] Internal [address] [address] José Miguel Gallagher MD Information 07/28/2022 Telephone [facility] Internal [place] [address] [place] [address] José Miguel Gallagher MD Question 07/17/2022 Telephone [facility] Family & Internal [facility] [address] [place] [address] José Miguel Gallagher MD Medication Request 07/17/2022 Travel 07/17/2022 10:20 AM MECHANICAL SERVICE REPRESENTATIVE Office Visit [facility] Internal [address] [address] José Miguel Gallagher MD New Patient (Transfer from [place]) 07/10/2022 8:37 AM CDT - 07/10/2022 11:59 PM CDT Hospital Encounter [facility] [address] [place] [address] José Miguel Gallagher MD Discharge Disposition: Home or Self Care (Routine Discharge) 07/09/2022 Travel 07/09/2022 12:55 PM CDT - 07/09/2022 11:59 PM CDT Hospital Encounter [facility] [address] [place] [address] Zelda Johnston MD Discharge Disposition: Home or Self Care (Routine Discharge) 06/17/2022 Telephone [facility] Family & Internal Medicine [facility] [address] [place] [phone] José Miguel Gallagher MD Lab Order 02/10/2022 Travel 02/10/2022 10:57 AM CDT - 02/10/2022 11:25 AM CDT Hospital Encounter [facility] [address] [place] [address] José Miguel Gallagher MD Discharge Disposition: Home or Self Care (Routine Discharge) 02/06/2022 Therapy Plan [facility] One Day Services [address] [place] [address] José Miguel Gallagher MD 02/06/2022 Therapy Plan [facility] Family [facility] Internal [facility] [address] [place] [address] José Miguel Gallagher MD 02/06/2022 Telephone [facility] One Day Services [address] [place] [address] José Miguel Gallagher MD Orders (New Prolia order ) 12/16/2021 [facility] [address] [place] [address] Poonam Hamlin NP Medication Problem 12/16/2021 [facility]phone [facility] [address] [facility] [place] [address] Madi Yanez MD Medication Information 12/11/2021 Travel 12/11/2021 7:30 AM CDT - 12/11/2021 7:59 AM CDT Surgery [facility] Surgery [address] [place] [address] Madi Yanez MD COLONOSCOPY 12/11/2021 8:13 AM CDT Anesthesia Event [facility] [address] [place] [address] Yomaira Barragan, Perla Charles, ENRIKE 12/11/2021 7:08 AM CDT - 12/11/2021 9:33 AM CDT Hospital Encounter [facility] Surgery [address] [place] [address] Madi Yanez MD Discharge Disposition: Home or Self Care (Routine Discharge) 12/09/2021 Telephone [facility] One Day Services [address] [place] [address] Scanned, Documents Question 11/01/2021 Orders Only [facility] [address] [place] [address] Madi Yanez MD 10/31/2021 Telephone [facility] [address] [place] [address] Madi Yanez MD Reschedule 10/07/2021 12:27 PM MECHANICAL SERVICE REPRESENTATIVE - 10/07/2021 11:59 PM MECHANICAL SERVICE REPRESENTATIVE Hospital Encounter [facility] Laboratory [address] [place] [address] Sher Loera MD Discharge Disposition: Home or Self Care (Routine Discharge) 10/07/2021 Travel 10/07/2021 9:00 AM MECHANICAL SERVICE REPRESENTATIVE Office Visit [facility] Family & Internal Medicine [facility] [address] [place] [address] Sher Loera MD Follow Up (follow up from UTI. Just has a slight sensation, but is better) 10/01/2021 Telephone [facility] Family & Internal [facility] [address] [place] [address] José Miguel Gallagher MD Question 10/01/[address] [place] [address] Madi Yanez MD Schedule Surgery 09/26/2021 Travel 09/26/2021 7:47 AM MECHANICAL SERVICE REPRESENTATIVE - 09/26/2021 8:57 AM MECHANICAL SERVICE REPRESENTATIVE Emergency [facility] Emergency Room [address] [place], [place] [phone] Zenia Tate MD Urinary Frequency (Urinary frequency since 0300. Hx UTIs. Denies fevers, bodyaches, chills. ) Discharge Disposition: Home or Self Care (Routine Discharge) 09/04/2021 Orders Only [address] [place] [address] Madi Yanez MD 09/03/2021 Scan [employer] INFO SRVCS Scanned, Documents 09/03/2021 Travel 09/03/2021 1:20 PM MECHANICAL SERVICE REPRESENTATIVE Office Visit [facility] [address] [address] Madi Yanez MD Egd (Consult for EGD); Rectal Problem (rectal bleeding, wondering if she has divertitulitis); Rectocele; Consult For Colonoscopy; GERD [address] [place] [address] Madi Yanez MD Appointment Request 08/13/2021 Telephone [facility] Internal [address] [phone] Don Espinoza MD Other 08/07/2021 Telephone [facility] Internal [facility] [address] [place] [address] Don Espinoza MD Question 08/07/2021 Travel 08/07/2021 9:52 AM MECHANICAL SERVICE REPRESENTATIVE - 08/07/2021 10:14 AM MECHANICAL SERVICE REPRESENTATIVE Hospital Encounter [facility] [address] [place] [id number] Don Espinoza MD Discharge Disposition: Home or Self Care (Routine Discharge) 07/31/2021 Therapy Plan [facility] Family Internal [facility] [address] [place] [phone] Don Espinoza MD 07/30/2021 Telephone [facility] One Day Services [address] [place] [phone] Don Espinoza MD Orders (requesting new order for Prolia - overdue ) 07/22/2021 Orders Only [facility] Family Internal [address] [address] Don Espinoza MD 07/22/2021 Travel 07/22/2021 Telephone [facility] Internal [address] [address] Don Espinoza MD Medication Request 07/22/2021 10:27 AM MECHANICAL SERVICE REPRESENTATIVE - 07/22/2021 11:59 PM MECHANICAL SERVICE REPRESENTATIVE Hospital Encounter [facility] [address] [place] [address] Don Espinoza MD Discharge Disposition: Home or Self Care (Routine Discharge) 07/20/2021 Orders Only [facility] Family [facility] Internal Medicine [facility] [address] [place] [address] Don Espinoza MD 07/18/2021 Travel 07/18/2021 10:40 AM MECHANICAL SERVICE REPRESENTATIVE - 07/18/2021 11:00 AM MECHANICAL SERVICE REPRESENTATIVE Surgery [facility] [place] [address] Madi Yanez MD EGD WITH MASON 48FR AND 50FR DILATION 07/18/2021 10:57 AM MECHANICAL SERVICE REPRESENTATIVE Anesthesia Event [facility] [address] Daren Dupree MD 07/18/2021 9:30 AM MECHANICAL SERVICE REPRESENTATIVE - 07/18/2021 11:58 AM MECHANICAL SERVICE REPRESENTATIVE Hospital Encounter [facility] [place] [address] Madi Yanez MD Discharge Disposition: Home or Self Care (Routine Discharge) 07/12/2021 12:50 PM CDT - 07/12/2021 11:59 PM CDT Hospital Encounter [facility] [id number] [place] [phone] Don Espinoza MD Discharge Disposition: Home or Self Care (Routine Discharge) 07/12/2021 Travel 07/12/2021 10:00 AM CDT Office Visit [facility] Family [facility] Internal Medicine [facility] [address] [place] [phone] Don Espinoza MD Physical (Pt here for annual physical); Imm/Inj (flu vaccine) 07/10/2021 Travel 07/09/2021 Travel 07/09/2021 10:30 AM CDT - 07/09/2021 11:59 PM CDT Hospital Encounter [facility] [address] [place] [address] Zelda Johnston MD Discharge Disposition: Home or Self Care (Routine Discharge) 07/02/2021 Telephone [facility] Family [facility] Internal Medicine [address] [address] Don Espinoza MD Error 06/28/2021 Travel 06/28/2021 12:54 PM CDT - 06/28/2021 11:59 PM CDT Hospital Encounter [facility] [address] [place] [address] Zelda Johnston MD Discharge Disposition: Home or Self Care (Routine Discharge) 06/27/2021 Orders Only [facility] - [address], [address] [place] [phone] Madi Yanez MD 06/20/[address] [place] [address] Madi Yanez MD Schedule Procedure 05/30/2021 Scan [employer] SRVCS Scanned, Documents 05/28/[address] [place] [phone] Madi Yanez MD Referral 05/15/2021 Travel 05/15/2021 10:00 AM CDT Office Visit [facility] Family & Internal Medicine [facility] [address] [place] [address] Mari Crystal, PA Sinus Problem 05/01/[address] [place] [address] Madi Yanez MD Results 04/30/2021 Travel 04/30/2021 10:44 AM CDT - 04/30/2021 11:59 PM CDT [place] [address] [place] [address] Madi Yanez MD Discharge Disposition: Home or Self Care (Routine Discharge) 04/26/2021 Orders Only [facility] Multispecialty Care - [facility] [address] [facility] [place] [address] Madi Yanez MD 04/26/2021 Travel 04/26/2021 8:52 AM CDT - 04/26/2021 9:19 AM CDT Surgery [facility] [address] [place] [address] Madi Yanez MD EGD with attempted dilation 04/26/2021 9:19 AM CDT Anesthesia Event [facility] [address] [place] [address] Emma Quevedo, Perla Charles, BOOKMOBILE DRIVER 04/26/2021 7:59 AM CDT - 04/26/2021 10:37 AM CDT Hospital Encounter [facility] [address] [place] [address] Madi Yanez MD Discharge Disposition: Home or Self Care (Routine Discharge) 04/24/2021 Travel 04/24/2021 9:44 AM CDT - 04/24/2021 11:59 PM CDT Hospital Encounter [facility] [address] [place] [address] Madi Yanez MD Discharge Disposition: Home or Self Care (Routine Discharge) 04/18/2021 Telephone [facility] Mult[facility]ty Care - [facility] [address] [facility] [place] [address] Madi Yanez MD Reschedule 04/16/2021 Orders Only [facility] Multispecialty Care - [address] [place] [address] Madi Yanez MD 04/12/2021 Travel 04/12/2021 1:00 PM CDT Office Visit [facility] [address] [address] Madi Yanez MD Dysphagia (pt is here dysphagia and lump on side of throat) 03/06/2021 Travel 03/06/2021 8:40 AM CDT Office Visit [facility] Family & Internal Medicine [address] [address] Don Espinoza MD Swelling (Pt c/o lump on upper chest/neck. Pt symptoms X 1 week) 02/22/2021 [facility] [address], [address] [place] [address] Madi Yanez MD Appointment Request 01/01/2021 Travel 01/01/2021 9:29 AM CDT - 01/01/2021 9:59 AM CDT Hospital Encounter [facility] Surgery [address] [place] [address] Don Espinoza MD Discharge Disposition: Home or Self Care (Routine Discharge) 12/25/2020 Therapy Plan [facility] One Day Services [address] [place] [address] Don Espinoza MD 12/24/2020 Travel 12/24/2020 11:40 AM CDT Office Visit [facility] [address] [address] Don Espinoza MD Abdominal Pain (Pt c/o low abdominal pain with blood in stool X 3 days. ) 10/15/2020 Telephone [facility] Medicine [address] [place] [address] Don Espinoza MD Question 07/17/2020 Travel 07/17/2020 9:01 AM MECHANICAL SERVICE REPRESENTATIVE - 07/17/2020 11:59 PM MECHANICAL SERVICE REPRESENTATIVE Hospital Encounter [facility] [address] [place] [address] Don Espinoza MD Discharge Disposition: Home or Self Care (Routine Discharge) 06/29/2020 Therapy Plan [facility] One Day Services [address] [place] [address] Don Espinoza MD 06/29/2020 Therapy Plan [facility] One Day Services [address] [place] [address] Don Espinoza MD 06/29/2020 Therapy Plan [facility] One Day Services [address] [place] [address] Don Espinoza MD 06/29/2020 Orders Only [facility] [address] [place] [address] Don Espinoza MD 06/27/2020 1:35 PM CDT - 06/27/2020 11:59 PM CDT Hospital Encounter [facility] [address] [place] [address] Don Espinoza MD Discharge Disposition: Home or Self Care (Routine Discharge) 06/27/2020 Travel 06/27/2020 11:20 AM CDT Office Visit [facility] Family & Internal Medicine [facility] [address] [place] [address] Don Espinoza MD Annual (yearly check up) 05/18/2020 Travel 05/18/2020 12:16 PM CDT - 05/18/2020 11:59 PM CDT Hospital Encounter [facility] [address] [place] [address] Zelda Johnston MD Discharge Disposition: Home or Self Care (Routine Discharge) 09/30/2019 Telephone [facility] Family & Internal [facility] [address] [place] [address] Don Espinoza MD Billing Issue 09/06/2019 Orders Only [facility] [address] [place] [address] Don Espinoza MD 08/30/2019 Orders Only [facility] [address] [place] [address] Don Espinoza MD 08/29/2019 Telephone [facility] [address] [place] [address] Don Espinoza MD Medication Problem 08/02/2019 10:10 AM MECHANICAL SERVICE REPRESENTATIVE - 08/02/2019 10:40 AM MECHANICAL SERVICE REPRESENTATIVE Hospital Encounter [facility] Surgery [address] [place] [address] Don Espinoza MD Discharge Disposition: Home or Self Care (Routine Discharge) 07/25/2019 Telephone [facility] [address] [place] [address] Don Espinoza MD Other 06/29/2019 Therapy Plan [facility] [address] [place] [address] Don Espinoza MD 06/29/2019 1:15 PM CDT - 06/29/2019 11:59 PM CDT Hospital Encounter [facility] [address] [place] [address] Don Espinoza MD Discharge Disposition: Home or Self Care (Routine Discharge) 06/29/2019 11:40 AM CDT Office Visit [facility] [address] [place] [address] Don Espinoza MD Fall (left knee, bleeding. fell left hand swollen and bruised. landed on left knee. kicked the curb and fell ); Imm/Inj (PN shot) 06/21/2019 11:00 AM CDT Office Visit [facility] Internal [facility] [address] [place] [address] Don Espinoza MD Follow Up (6 months); Refill Request (famotidine and alendronate to [facility] in [facility]) 06/08/2019 1:12 PM CDT - 06/08/2019 11:59 PM CDT Hospital Encounter [facility] [address] [place] [address] Don Espinoza MD Discharge Disposition: Home or Self Care (Routine Discharge) 06/08/2019 1:08 PM CDT - 06/08/2019 1:11 PM CDT Hospital Encounter [address] [address] Don Espinoza MD Discharge Disposition: Home or Self Care (Routine Discharge) 06/08/2019 9:40 AM CDT Office Visit [facility] [address] [place] [address] Don Espinoza MD Pain (in the left kidney area going up to the left shoulder blade) 04/29/2019 12:12 PM CDT - 04/29/2019 11:59 PM CDT Hospital Encounter [facility] [address] [place] [address] Zeinab Zimmer, FARHAD Discharge Disposition: Home or Self Care (Routine Discharge) 02/24/2019 Telephone [facility] Internal [facility] [address] [place] [address] Don Espinoza MD Question 02/21/2019 Orders Only [facility] Internal [facility] [address] [place] [address] Don Espinoza MD 02/14/2019 10:34 AM CDT - 02/14/2019 11:59 PM CDT Hospital Encounter [facility] [address] [place] [address] Discharge Disposition: Home or Self Care (Routine Discharge) 02/14/2019 10:30 AM CDT - 02/14/2019 10:33 AM CDT Hospital Encounter [facility] Diagnostic Imaging [address] [place] [address] Don Espinoza MD Discharge Disposition: Home or Self Care (Routine Discharge) 02/03/2019 Telephone [facility] [address] [place] [address] Don Espinoza MD Question 01/25/2019 Scan HEALTH INFO SRVCS Scanned, Documents 01/21/2019 Telephone [facility] Multispecialty [facility] [address] [facility], [address] [place] [address] Zeinab Wang RN Results 01/19/2019 EBD SPECIAL EDUCATION TEACHER ONLY [facility] [place] [phone] Scanned, Documents 01/17/2019 Abstract [facility] Laboratory [address] [place] [address] Don Espinoza MD 01/17/2019 10:20 AM CDT Office Visit [facility] [address] [place] [address] Don Espinoza MD Insect Bite (tick bite a week ago. has a bump and redness. itchy. using benadryl and alcohol located mid back) 01/13/2019 Scan HEALTH INFO SRVCS Scanned, Documents 01/13/2019 Scan HEALTH INFO SRVCS Scanned, Documents 12/20/2018 Abstract [facility] [address] [place] [address] Don Espinoza MD 12/20/2018 11:00 AM CDT Office Visit [facility] Family [facility] Internal [facility] [address] [place], [place] [address] Don Espinoza MD Follow Up (6 month. ); Lump (lower right side of abdomen) 12/13/2018 Abstract [facility] One Day Services [address] [place] [address] Madi Yanez MD 12/10/2018 Scan MG HEALTH INFO SRVCS Scanned, Documents Form (SCAN) ([facility] - SURGERY SCHEDULING FORM); Office Documentation (SCAN)* ([facility] - PATIENT DEMOGRAPHICS); Report (SCAN) ([facility] - PROGRESS NOTES - GASTROENTEROLOGY INITIAL VISIT: GERD AND CONSTIPATION) 12/10/2018 1:20 PM CDT Office Visit [facility] [place] [address] [place] [address] Madi Yanez MD GERD; Constipation (medication related) 10/27/2018 Telephone [facility] Multispecialty Care - [facility] [address] [facility], [address] [place] [address] Maid Yanez MD Reschedule (Appointment) 10/20/2018 Abstract [facility] Diagnostic Imaging [address] [place] [address] Sima Hansen PA-C 10/20/2018 Scan MG HEALTH INFO SRVCS Scanned, Documents CT (SCAN) 10/18/2018 Abstract [facility] [address] [place] [address] Luis Manuel Blossom Lyon, CRACKING UNIT OPERATOR 10/18/2018 Scan MG HEALTH INFO SRVCS Scanned, Documents Image (SCAN) 09/24/2018 10:40 AM MECHANICAL SERVICE REPRESENTATIVE Office Visit [facility] Family [facility] Internal Medicine [facility] [address] [place] [address] Anna Dickey MD Sinus Problem (has been seen twice for sinus congestion and cough, was given an antibiotic, then a higher dose one, and doesnt feel better, wants a steriod shot) 09/23/2018 Telephone [facility] Internal [facility] [address] [place] [address] Francoise Nicole, EDGE PLUGGER Other 09/21/2018 10:40 AM MECHANICAL SERVICE REPRESENTATIVE Office Visit [facility] Internal [facility] [address] [place] [address] Francoise Nicole EDGE PLUGGER URI (cough worse @ night, scratchy throat) 09/10/2018 Telephone [facility] Internal [facility] [address] [place] [address] Don Espinoza MD Results 09/09/2018 Abstract [facility] [address] [place] [address] Don Espinoza MD 09/09/2018 Orders Only [facility] Internal [facility] [address] [place] [address] Don Espinoza MD 09/09/2018 11:40 AM MECHANICAL SERVICE REPRESENTATIVE Office Visit [facility] Internal [facility] [address] [place] [address] Don Espinoza MD Fall (Pt fell going down steps yestereday) 07/13/2018 Abstract [facility] Md Generic ConversionMD 07/12/2018 Scan HEALTH Fragegg SRVCS Scanned, Documents 07/12/2018 Abstract [facility] Conrad Tomas Generic ConversionMD 07/07/2018 Scan HEALTH INFO SRVCS Scanned, Documents 07/07/2018 Abstract [facility] Md Generic ConversionMD 07/05/2018 Abstract [facility] Md Generic ConversionMD 07/02/2018 Abstract [facility] Md Generic ConversionMD 06/29/2018 Abstract [facility] Md Generic ConversionMD 06/25/2018 Abstract [facility] [address] [place] [address] Estee Lopes MD 06/24/2018 Abstract [facility] Md, Generic Conversion, 06/21/2018 Abstract [facility] Family & Internal Medicine [facility] [address] [place] [address] Don Espinoza MD 06/11/2018 Scan HEALTH INFO SRVCS Scanned, Documents 05/24/2018 Scan [facility] Md Generic Conversion, 05/17/2018 Abstract [facility] [address] [facility] [place] [address] Zeinab Zimmer NP 05/17/2018 Abstract [facility] Conversion Md Generic Conversion, 01/14/2018 Abstract [facility] [address] [place] [address] Md Generic Conversion, 12/29/2017 Abstract [facility] [address] [place] [address] Estee Lopes MD 12/29/2017 Scan HEALTH INFO SRVCS Scanned, Documents 12/29/2017 Abstract [facility] Md Generic Conversion, 11/13/2017 Abstract [facility] Conversion Alonso Singh MD 11/09/2017 Scan HEALTH INFO SRVCS Scanned, Documents 11/09/2017 Abstract [facility] Conversion Md Generic ConversionMD 11/09/2017 Abstract [facility] Conversion Md Generic ConversionMD 09/10/2017 Scan HEALTH INFO SRVCS Scanned, Documents 09/10/2017 Abstract [facility] Conversion Md Generic Conversion, 07/01/2017 Abstract [facility] [address] [place] [address] Alonso Singh MD 07/01/2017 Scan HEALTH INFO SRVCS Scanned, Documents 07/01/2017 Abstract [facility] Conversion Md Generic ConversionMD 07/01/2017 Abstract [facility] Conversion Md Generic ConversionMD 06/17/2017 Abstract [facility] Conversion Alonso Singh MD 06/17/2017 Abstract [facility] Conversion Md Generic ConversionMD 06/08/2017 Abstract [facility] Conversion Alonso Singh MD 06/05/2017 Abstract [facility] [address] [place] [address] Alonso Singh MD 06/05/2017 Scan MG HEALTH INFO SRVCS Scanned, Documents 06/05/2017 Abstract [facility] Conversion Md Generic ConversionMD 06/04/2017 Abstract [facility] Conversion Md Generic ConversionMD 06/02/2017 Scan MG HEALTH INFO SRVCS Scanned, Documents 06/02/2017 Abstract [facility] Conversion Md Generic ConversionMD 04/16/2017 Abstract [facility] [address] [place] [address] Aleksandr Pat MD 01/14/2017 Abstract [facility] Conrad Tomas Generic MD Conrad 01/09/2017 Abstract [facility] [address] [place] [address] Zeinab Zimmer NP 01/09/2017 Abstract [facility] Ro Loera MD 12/23/2016 Abstract [facility] [address] [place] [address] Estee Lopes MD 12/23/2016 Scan [facility] HEALTH INFO SRVCS Scanned, Documents 12/15/2016 Scan [facility] HEALTH INFO SRVCS Scanned, Documents 12/15/2016 Abstract [facility] Conversion Md Generic ConversionMD 10/22/2016 Scan MG HEALTH INFO SRVCS Scanned, Documents 10/22/2016 Abstract [facility] Conversion Md Generic ConversionMD 10/22/2016 Abstract [facility] Conversion Md Generic ConversionMD 09/22/2016 Abstract [facility] Conrad Tomas Generic ConversionMD 07/15/2016 Abstract [facility] General Surgery [facility] [address] [facility], [address] [address] Maurisio Escalante MD 07/11/2016 Abstract [facility] 07/09/2016 Scan MG HEALTH INFO SRVCS Scanned, Documents 07/09/2016 Abstract [facility] Christopher Tomas MD 07/08/2016 Abstract [facility] [address] [place] [address] Maurisio Escalante MD 07/08/2016 Abstract [facility] General Surgery [facility] [address] [facility], [address] [place] [phone] Maurisio Escalante MD 06/27/2016 Abstract [facility] [address] [facility], [address] [phone] Maurisio Escalante MD 06/11/2016 Scan MG HEALTH INFO SRVCS Scanned, Documents 05/14/2016 Scan [facility] HEALTH INFO SRVCS Scanned, Documents 01/24/2016 Abstract [facility] Christopher Tomas MD 01/23/2016 Abstract [facility] [address] [place] [address] Madi Yanez MD 01/23/2016 Abstract [facility] Madi Yanez MD 01/17/2016 Abstract [facility] [address] [place] [address] Madi Yanez MD 01/17/2016 Scan [facility] HEALTH INFO SRVCS Scanned, Documents 01/17/2016 Abstract [facility] Madi Yanez MD 01/17/2016 Abstract [facility] Madi Yanez MD 01/04/2016 Abstract [facility] [address] [place] [address] Zeinab Zimmer NP 12/28/2015 Scan [facility] HEALTH INFO SRVCS Scanned, Documents 12/28/2015 Scan [facility] HEALTH INFO SRVCS Scanned, Documents 12/28/2015 Abstract [facility] Conrad Tomas Generic MD Conrad 12/25/2015 Abstract [facility] [address] [place] [address] Estee Lopes MD 12/25/2015 Scan [facility] HEALTH INFO SRVCS Scanned, Documents 12/25/2015 Abstract [facility] Conrad Tomas Generic MD Conrad 12/10/2015 Scan [facility] HEALTH INFO SRVCS Scanned, Documents 11/26/2015 Scan [facility] HEALTH INFO SRVCS Scanned, Documents 06/06/2015 Abstract [facility] Angely Sandhu MD 05/29/2015 Abstract [facility] [address] [place] [address] Anila Pereira MD 05/29/2015 Scan MG HEALTH INFO SRVCS Scanned, Documents 05/29/2015 Abstract [facility] Multispecialty Care - [facility] [address] [place] [address] Angely Sandhu MD 04/30/2015 Scan [facility] HEALTH INFO SRVCS Scanned, Documents 01/10/2015 Scan [facility] HEALTH INFO SRVCS Scanned, Documents Colonoscopy/EGD (SCAN) 01/10/2015 Abstract [facility] [address] [place] [address] Madi Yanez MD 01/10/2015 Abstract [facility] Md Generic MD Conrad 01/08/2015 Abstract [facility] Md Generic MD Conrad 01/04/2015 Abstract [facility] [address] [place] [address] Madi Yanez MD 01/02/2015 Scan MG HEALTH INFO SRVCS Scanned, Documents 12/27/2014 Abstract [facility] Md Generic ConversionMD 12/15/2014 Abstract [facility] [address] [place] [address] Zeinab Zimmer NP 11/28/2014 Scan [facility] HEALTH INFO SRVCS Scanned, Documents 11/28/2014 Abstract [facility] Md Generic MD Cornad 11/15/2014 Scan MG HEALTH INFO SRVCS Scanned, Documents 10/09/2014 Abstract [facility] 07/17/2014 Abstract [facility] [address] [place] [address] Prasad Alfaro MD 07/17/2014 Abstract [facility] Medical [facility] Prasad Alfaro MD 07/13/2014 Scan MG HEALTH INFO SRVCS Scanned, Documents 07/03/2014 Scan [facility] HEALTH INFO SRVCS Scanned, Documents 06/27/2014 Scan [facility] HEALTH INFO SRVCS Scanned, Documents 06/27/2014 Scan [facility] HEALTH INFO SRVCS Scanned, Documents 06/27/2014 Scan [facility] HEALTH INFO SRVCS Scanned, Documents 06/23/2014 Abstract [facility] Abner Graham MD 06/05/2014 Abstract [facility] Medical [facility] Abner Graham MD 05/29/2014 Abstract [facility] 04/22/2014 Abstract [facility] [address] [place] [address] 04/22/2014 Abstract [facility] Medical [facility] Abner Graham MD 12/28/2013 Abstract [facility] 12/23/2013 Abstract [facility] General Surgery - [place] [address] [facility] [place] [address] Prasad Alfaro MD 12/21/2013 Abstract [facility] [address] [place] [address] Prasad Alfaro MD 12/21/2013 Abstract [facility] Prasad Alfaro MD 12/21/2013 Abstract [facility] Prasad Alfaro MD 12/21/2013 Abstract [facility] Prasad Alfaro MD 12/14/2013 Abstract [facility] General Surgery - [place] [address] [facility] [address] [place] [address] Prasad Alfaro MD 12/13/2013 Abstract [facility] 12/08/2013 Abstract [facility] [address] [place] [address] Zeinab Zimmer, EDGE PLUGGER 12/02/2013 Abstract [facility] [address] [place] [address] Zeinab Zimmer, EDGE PLUGGER 12/02/2013 Abstract [facility] Medical [facility] Roland Matos, CRACKING UNIT OPERATOR 11/24/2013 Abstract [facility] [address] [place] [address] Christopher Tomas MD 10/14/2013 Abstract [facility] [address] [place] [address] Roland Matos, CRACKING UNIT OPERATOR 10/14/2013 Abstract [facility] Family & Internal [facility] [address] [place] [address] Abner Graham MD 09/23/2013 Abstract [facility] [address] [place] [address] Roland Matos, CRACKING UNIT OPERATOR 09/23/2013 Abstract [facility] Internal [facility] [address] [place] [phone] Roland Matos, MONICA 09/23/2013 Abstract [facility] Medical [facility] 09/16/2013 Abstract [facility] Family & Internal [facility] [address] [place] [phone] Abner Graham MD 07/19/2013 Abstract [facility] [address] [place] [address] Abner Graham MD 07/19/2013 Abstract [facility] Medical [facility] Abner Graham MD 07/13/2013 Abstract [facility] Medical [facility] 07/12/2013 Abstract [facility] Medical [facility] 07/07/2013 Abstract [facility] [address] [place] [address] Zeinab Zimmer NP 07/07/2013 Abstract [facility] Medical [facility] 07/04/2013 Abstract [facility] [address] [place] [address] Roland Matos, CRACKING UNIT OPERATOR 07/04/2013 Abstract [facility] & Internal [facility] [address] [place] [address] Abner Graham MD 07/01/2013 Abstract [facility] Medical [facility] 06/30/2013 Abstract [facility] Medical [facility] 06/29/2013 Abstract [facility] [address] [place] [address] Roland Matos FNP 06/29/2013 Abstract [facility] Family & Internal Medicine [facility] [address] [place] [phone] Abner Graham MD 06/15/2013 Abstract [facility] [address] [place] [address] Abner Graham MD 06/15/2013 Abstract [facility] Medical [facility] 01/19/2013 Abstract [facility] Medical [facility] 12/20/2012 Abstract [facility] General Surgery - [place] [address] [facility] [place] [address] Prasad Alfaro MD 12/14/2012 Abstract [facility] Medical [facility] 11/24/2012 Abstract [facility] Medical [facility] 11/18/2012 Abstract [facility] Medical [facility] 11/17/2012 Abstract [facility] General Surgery - [place] [address] [facility] [address] [place] [address] Prasad Alfaro MD 11/16/2012 Abstract [facility] General Surgery - [place] [address] [facility] [address] [place] [address] Prasad Alfaro MD 11/14/2012 Abstract [facility] Medical [facility] 11/12/2012 Abstract [facility] [address] [place] [address] Zeinab Zimmer NP 11/11/2012 Abstract [facility] Medical [facility] 11/09/2012 Abstract [facility] Medical [facility] 11/08/2012 [facility] [address] [facility] [place] [address] Prasad Alfaro MD 11/08/2012 Abstract [facility] General Surgery - [place] [address] [facility] [place] [address] Prasad Alfaro MD 11/04/2012 Abstract [facility] [address] [place] [address] Roland Matos, CRACKING UNIT OPERATOR 11/04/2012 Abstract [facility] Roland Matos, CRACKING UNIT OPERATOR 11/04/2012 Abstract [facility] Roland Matos, CRACKING UNIT OPERATOR 11/02/2012 Abstract [facility] Medical [facility] General Surgery - [place] [address] [facility] [place] [address] Prasad Alfaro MD 10/04/2012 Abstract [facility] Abner Graham MD 09/17/2012 Abstract [facility] 09/14/2012 Abstract [facility] Abner Graham MD 05/18/2012 Abstract [facility] Medical [facility] 04/16/2012 Abstract [facility] [address] [place] [address] Zeinab Zimmer NP 11/13/2011 Abstract [facility] [address] [place] [address] Jacquie Carrizales MD 09/30/2011 Abstract [facility] [address] [place] [address] Roland Matos, [facility] 05/02/2011 Abstract [facility] [address] [place] [address] Abner Graham MD 03/04/2011 Abstract [facility] [address] [place] [address] Abner Graham MD 02/25/2011 Abstract [facility] [address] [place] [address] Abner Graham MD 02/20/2011 Abstract [facility] [address] [place] [address] Abner Graham MD 02/12/2011 Abstract [facility] [address] [place] [address] Abner Graham MD 02/01/2011 Abstract [facility] [address] [place] [address] Abner Graham MD 08/16/2010 Abstract [facility] [address] [place] [address] Zeinab Zimmer, EDGE PLUGGER 05/22/2010 Abstract [facility] [address] [place] [address] Roland Matos, CRACKING UNIT OPERATOR 05/19/2010 Abstract [facility] [address] [place] [address] Barrett Garcia MD 08/08/2009 [facility] [address] [place] [address] Zeinab Zimmer, EDGE PLUGGER 07/20/2009 [facility] [address] [place] [address] Zeinab Zimmer, EDGE PLUGGER 12/12/2008 [facility] [address] [place] [address] Zeinab Zimmer, EDGE PLUGGER 07/27/2008 [facility] [address] [place] [address] Moshe Morel MD 06/30/2008 [facility] [address] [place] [address] Zeinab Zimmer, EDGE PLUGGER 06/30/2008 Abstract [facility] [address] [place] [address] Zeinab Zimmer, EDGE PLUGGER 06/21/2008 Abstract [facility] [address] [place] [address] Roland Matos, CRACKING UNIT OPERATOR 06/08/2007 [facility] [address] [place] [address] Zeinab Zimmer, EDGE PLUGGER 04/07/2007 [facility] [address] [place] [address] Zeinab Zimmer, EDGE PLUGGER 07/22/2006 [facility] [address] [place] [address] Zeinab Zimmer, EDGE PLUGGER 07/03/2006 Abstract [facility] [address] [place] [address] Roland Matos, CRACKING UNIT OPERATOR 06/23/2006 Abstract [facility] [address] [place] [address] Zeinab Zimmer, EDGE PLUGGER 05/30/2006 Abstract [facility] [address] [place] [address] Helder Leary MD 03/06/2006 Abstract [facility] [address] [place] [address] Roland Matos, CRACKING UNIT OPERATOR 07/16/2005 Abstract [facility] [address] [place] [address] Roland Matos, [facility] 05/22/2005 Abstract [facility] [address] [place] [address] Marifer Fagan MD 02/10/2005 Abstract [facility] [address] [place] [address] Marifer Fagan MD 01/14/2005 [facility] [address] [place] [address] Marifer Fagan MD 01/09/2005 [facility] [address] [place] [address] Marifer Fagan MD 12/16/2004 [facility] [address] [place] [address] Marifer Fagan MD 12/10/2004 [facility] [address] [place] [address] Marifer Fagan MD 10/08/2004 [facility] [address] [place] [address] Helder Leary MD 10/04/2004 [facility] [address] [place] [address] Helder Leary MD 10/03/2004 [facility] [address] [place] [address] Helder Leary MD 05/27/2004 [facility] [address] [place] [address] Zeinab Zimmer, EDGE PLUGGER 05/21/2004 [facility] [address] [place] [address] Helder Leary MD 04/05/2004 [facility] [address] [place] [address] Zeinab Zimmer, EDGE PLUGGER 01/02/2004 [facility] [address] [place] [address] Zeinab Zimmer, EDGE PLUGGER 12/08/2003 Abstract [facility] [address] [place] [address] Zeinab Zimmer, EDGE PLUGGER 10/31/2003 Abstract [facility] [address] [place] [address] Zeinab Zimmer, EDGE PLUGGER 10/20/2003 Abstract [facility] [address] [place] [address] , Generic Conversion, 12/09/2002 Abstract [facility] [address] [place] [address] , Generic Conversion, 11/03/2002 Abstract [facility] [address] [place] [address] , Generic Conversion, 10/25/2002 [facility] [address] [place] [address] , Generic Conversion, 09/22/2002 Abstract [facility] [address] [place] [address] , Generic Conversion, 08/09/2002 Abstract [facility] [address] [place] [address] , Generic Conversion, 10/18/2001 [facility] [address] [place] [address] Md, Generic Conversion, MD 09/10/2001 [facility] [address] [place] [address] Md, Generic Conversion, MD 09/25/2000 [facility] [address] [place] [address] Md, Generic Conversion, MD 09/04/2000 [facility] [address] [place] [address] Md, Generic Conversion, MD 09/10/1999 [facility] [address] [place] [address] Md, Generic Conversion, MD 09/05/1999 [facility] [address] [place] [address] Md, Generic Conversion, MD 08/23/1998 [facility] [address] [place] [address] Md, Generic Conversion, 01/02/1998 [facility] [address] [place] [address] Md, Generic Conversion, 12/27/1997 [facility] [address] [place] [address] Md, Generic Conversion, 12/04/1997 [facility] [address] [place] [address] Md, Generic Conversion, 11/03/1997 [facility] [address] [place] [address] Md, Generic Conversion, 05/26/1996 [facility] [address] [place] [address] Md, Generic Conversion, 03/08/1996 [facility] [address] [place] [address] Md, Generic Conversion, 02/24/1995 [facility] [address] [place] [address] Md, Generic Conversion, Allergies Active Allergy Reactions Criticality Noted Date Comments Ceftriaxone Hives,Rash Low 10/22/2016 Medications aspirin EC (ECOTRIN) 81 MG tablet Take 1 tablet (81 mg total) by mouth daily. Active vitamin C 500 MG tablet Take 1 tablet (500 mg total) by mouth daily. Active Cranberry-Vitamin C-Vitamin E 4200-20-3 MG-MG-UNIT Cap 8 Active Evening [place] Oil 1000 MG Cap Take 1 capsule by mouth daily. Active polyethylene glycol (GLYCOLAX) 17 GM/SCOOP powder Take 17 g by mouth daily as needed. Active Selenium 200 MCG Cap Take 1 capsule (200 mcg total) by mouth daily. 8 Active Vitamin E 400 units Tab Take 1 tablet by mouth daily. 8 Active magnesium-aluminum- simethicone (MYL[place] REGULAR STRENGTH) 200-200-20 MG/5ML suspension Take 10 mLs by mouth as needed for Indigestion. Active folic acid (FOLVITE) 0.5 mg Tab folic acid Active Misc Natural Products (OSTEO BI-FLEX TRIPLE STRENGTH OR) Active Cholecalciferol (VITAMIN D) 50 MCG (2000 UT) CapIndications:Oste openia of lumbar spine Take 1 capsule by mouth daily 3 Active Calcium 500 MG TabIndications:Oste openia of lumbar spine Take 1 tablet by mouth daily 3 Active Tart Waters 1200 MG Cap Active [place]-3 Fatty Acids (FISH OIL) 500 MG capsule Take 500 mg by mouth daily. Active biotin 300 MCG Tab Take 1 tablet (300 mcg total) by mouth daily. Active gabapentin (NEURONTIN) 100 MG capsuleIndications: Pain of right breast Take 1 capsule (100 mg total) by mouth 3 (three) times daily. 90 capsule 4 Active meloxicam (MOBIC) 15 MG tabletIndications:A rthritis of left foot,Acute gout of left foot, unspecified cause Take 1 tablet by mouth once daily 30 tablet 4 Active azithromycin (ZITHROMAX Z-YVONNE) 250 MG tabletIndications:N on-recurrent acute serous otitis media of both ears,Bronchitis Take 2 tablets by mouth on day one then 1 daily for four days. 6 tablet 4 Active famotidine (PEPCID) 20 MG tabletIndications:G astroesophageal reflux disease with esophagitis without hemorrhage Take 1 tablet by mouth twice daily 180 tablet 4 Active rosuvastatin (CRESTOR) 10 MG tabletIndications:M ixed hyperlipidemia Take 1 tablet by mouth once daily 90 tablet 5 Active Active Problems Problem Noted Date Diagnosed Date Kidney stone 08/15/2022 COVID 10/07/2021 Hematochezia 09/04/2021 Overview (09/04/2021): Added automatically from request for surgery [id number] Dysphagia 06/27/2021 Overview (06/27/2021): Added automatically from request for surgery [id number] Hx of colonic polyps 12/24/2020 Osteopenia 06/29/2019 Age-related osteoporosis wit hout current pathological fracture 06/29/2019 Gastric polyps 01/21/2019 Overview (01/21/2019): Esophagastroduodenoscopy [id number] - [facility]. Hiatal hernia 01/21/2019 Overview (01/21/2019): Esophagastroduodenoscopy - [id number] - [facility]; 3 cm Nodule, subcutaneous 12/20/2018 Assessment & Plan (12/20/2018 11:40 AM CDT): Longstanding, left lower quadrant of abdomen. Findings consistent with a lipoma. Asymptomatic at present. Patient declines surgical evaluation at this time. Continue to monitor. BMI 27.0-27.9,adult 06/21/2018 Medication management 06/21/2018 Assessment & Plan (12/20/2018 11:41 AM CDT): Checking routine labs today (see orders) for ongoing medication monitoring. Mixed hyperlipidemia 10/22/2016 Assessment & Plan (12/20/2018 11:40 AM CDT): Patient well-controlled on last fasting lipid profile from 1 year ago. We will have her fast prior to her next visit and obtain repeat testing. Breast lump 12/14/2013 Gastroesophageal reflux dise ase with esophagitis without hemorrhage 09/16/2013 Assessment & Plan (12/20/2018 11:39 AM CDT): Symptoms reasonably well controlled on current dosing of famotidine daily. EGD to be scheduled in the next month with Dr. Yanez. No breakthrough symptoms at this time. Palpitations 11/04/2012 Uterovaginal prolapse, incomplete 01/07/2010 Resolved Problems Problem Noted Date Diagnosed Date Resolved Date Dysuria 10/07/2021 07/15/2024 Tick bite 01/17/2019 06/21/2019 Closed fracture of proximal end of right humerus 12/20/2018 01/17/2019 Assessment & Plan (12/20/2018 11:28 AM CDT): Currently management per orthopedics. Improving, 3 times weekly physical therapy. Viral URI with cough 09/26/2018 019 Assessment & Plan (09/26/2018 4:12 PM MECHANICAL SERVICE REPRESENTATIVE): Advised that based on history and exam likely viral and will not feel better with abx. -Will try guiafenesin with codeine at night to help cough and sleep. Advised can take during day but do not drive or work as can make drowsy. Does not wish to try any nasal sprays -Drink plenty of fluids, get rest. Take tylenol as directed for mylagias, sore throat, fevers. Can try OTC lozenges. Try salt water gargle for sore throat Chronic left hip pain 06/21/20182018 S/P colonoscopy 07/15/2016 01/17/2019 Acute sinusitis 09/16/2013 09/09/2018 Urinary tract infection 07/04/2013/11/2018 Urinary frequency 06/15/2013 09/09/2018 Fatigue 11/04/2012 12/20/2018 Malaise 11/04/2012 09/09/2018 Headache 09/22/2012 09/09/2018 Localized swelling, mass or lump of neck 09/14/2012 12/20/2018 Neck pain 09/14/2012 12/20/2018 Encounter for preventive health examination 06/08/2012 09/09/2018 Immunizations Name Administration Dates Next Due Fluzone 6 Months+ Quad (0.5 mL Prefilled Syringe) 06/21/2018,06/11/2016 Fluzone High Dose (IIV, triv alent, 0.5mL) 06/20/2024 Fluzone High Dose - >Age 65 (Prefilled Syringe) 07/23/2023,06/21/2022,07/12/2021,2019,06/21/2019 Influenza Adult (Generic) 06/21/2018,07/2017,06/11/2016,2014,06/09/2014 PFIZER COVID-19 (ORIGINAL FORMULATION, PURPLE CAP) mRNA, LNP-S, PF, 30 MCG/0.3 ML DOSE 03/12/2021,02/19/2021 Pneumococcal (Pneumovax 23) 07/12/2021 Pneumococcal (Prevnar 13) 06/29/2019 Tdap (Adacel) 07/28/2022 Tdap (Generic) 06/27/2014,06/27/2014 Zoster (Zostavax) 32975 Unt/0.65Ml 06/27/2014 Family History Medical History Relation Comments Kidney Cancer Brother lung, kidney Heart Disease Father Stroke Mother Breast Cancer Other 1 Breast Cancer Other 2 Breast Cancer Other 3 cervical Cancer Sister cervical Relation Status Comments Brother Father Mother Other 1 Other 2 Alive Other 3 Alive Sister Social History Smoking Status as of 11/11/2024 Tobacco Use Types Packs/Day Years Used Date Smoking Tobacco: Never Assessed AUDIT-C Answer Date Recorded Frequency of Alcohol Consumption Never 09/09/2018 Average Number of Drinks Not on file 019 Frequency of Binge Drinking Not on file 11/2018 PHQ-2 Answer Date Recorded Patient Health Questionnaire-2 Score 0 09/17/2022 Education Answer Date Recorded What is the highest level of school you have completed or the highest degree you have received? GED or equivalent 11/2018 Sex and Gender Information Value Date Recorded Sex Assigned at Female 09/21/2018 7:05 PM MECHANICAL SERVICE REPRESENTATIVE Legal Sex Female 7:34 PM CDT Gender Identity Female 09/21/2018 7:05 PM MECHANICAL SERVICE REPRESENTATIVE Sexual Orientation Not on file Last Filed Vital Signs Vital Sign Reading Time Taken Comments Blood Pressure 103/77 08/01/2024 7:18 AM MECHANICAL SERVICE REPRESENTATIVE Pulse 103 08/01/2024 7:18 AM MECHANICAL SERVICE REPRESENTATIVE Temperature 36.6 C (97.9 F) 08/01/2024 7:18 AM MECHANICAL SERVICE REPRESENTATIVE Respiratory Rate 18 08/01/2024 7:18 AM MECHANICAL SERVICE REPRESENTATIVE Oxygen Saturation 96% 08/01/2024 7:18 AM MECHANICAL SERVICE REPRESENTATIVE Inhaled Oxygen Concentration - - Weight 78 kg (172 lb) 08/01/2024 7:18 AM MECHANICAL SERVICE REPRESENTATIVE Height 165.1 cm (5' 5 ) 08/01/2024 7:18 AM MECHANICAL SERVICE REPRESENTATIVE Body Mass Index 28.62 08/01/2024 7:18 AM MECHANICAL SERVICE REPRESENTATIVE Plan of Treatment Upcoming Encounters Date Type Department Care Team (Late st Contact Info) Description 01/04/2025 1:00 PM CDT Appointment [facility] [address] [place] [address] Zelda Johnston MD [address] [place], [place] [id number] 01/25/2109 Scan [employer] INFO SRVCS Scanned, Documents Lab (SCAN) Medical Devices Implanted Type Area Professor Of [employer] Device Identifier Shelf Expiration Date Model / Serial / Lot Stent Cook Ureteral Filaform 6 Fr X 24cm - [id number] Implanted:Qty: 1 on 08/17/2022 by Leander Fisher MD at [facility] Stent Left: Ureter [employer] n/a 05/01/2025 [id number] / / [id number] Procedures Procedure Name Priority Date/Time Associated Diagnosis Comments US BREAST RT BIRAD LTD Routine 08/01/2024 2:01 PM MECHANICAL SERVICE REPRESENTATIVE Pain of right breast RESP SYNCYTIAL VIRUS Routine 08/01/2024 Suspected COVID-19 virus infection CORONAVIRUS (COVID-19) INFLUENZA A & B ANTIGEN IA PANEL Routine 08/01/2024 Suspected COVID-19 virus infection COLLECTION VENOUS BLOOD VENIPUNCTURE Routine 07/15/2024 10:08 AM MECHANICAL SERVICE REPRESENTATIVE Pain of right breast Prediabetes VITAMIN B12 / FOLATE Routine 07/15/2024 10:07 AM MECHANICAL SERVICE REPRESENTATIVE Pain of right breast HEMOGLOBIN, GLYCOSYLATED Routine 07/15/2024 10:07 AM MECHANICAL SERVICE REPRESENTATIVE Prediabetes CBC W/DIFF AUTOMATED Routine 07/15/2024 10:07 AM MECHANICAL SERVICE REPRESENTATIVE Pain of right breast MG DIAG W SRINIVASA RT DIGI Routine 07/07/2024 10:07 AM CDT Status post right breast biopsy Other specified disorders of breast LIPID PANEL Routine 06/06/2024 8:45 AM CDT Mixed hyperlipidemia COMPREHENSIVE METABOLIC PANEL Routine 06/06/2024 8:45 AM CDT Mixed hyperlipidemia URIC ACID BLOOD Routine 06/06/2024 8:45 AM CDT Gout XR FOOT LT 3V Routine 03/25/2024 3:47 PM CDT Arthritis of left foot Acute gout of left foot, unspecified cause COLLECTION VENOUS BLOOD VENIPUNCTURE Routine 03/25/2024 3:16 PM CDT Arthritis of left foot Acute gout of left foot, unspecified cause URIC ACID BLOOD Routine 03/25/2024 3:15 PM CDT Arthritis of left foot Acute gout of left foot, unspecified cause BASIC METABOLIC PANEL Routine 03/25/2024 3:15 PM CDT Arthritis of left foot Acute gout of left foot, unspecified cause MG TISSUE STUDY LOC RT Routine 01/04/2024 1:39 PM CDT Abnormal mammogram MG POST PROC RT DIAG MAMMO Routine 01/04/2024 1:38 PM CDT Abnormal mammogram PATHOLOGY Routine 01/04/2024 12:00 AM CDT CORONAVIRUS (COVID-19) INFLUENZA A & B ANTIGEN IA PANEL Routine 11/12/2023 Suspected COVID-19 virus infection US BREAST RT BIRAD LTD Routine 10/23/2023 3:10 PM MECHANICAL SERVICE REPRESENTATIVE Abnormal mammogram MG DIAG ADD VIEW W SRINIVASA RT Routine 10/23/2023 3:09 PM MECHANICAL SERVICE REPRESENTATIVE Abnormal mammogram MAMMOGRAM GENERIC (SCAN ORDER) 10/23/2023 USV ART DUPLEX+RONY LOW WANG Routine 10/06/2023 1:45 PM MECHANICAL SERVICE REPRESENTATIVE Claudication MG SCREENING W SRINIVASA WANG DIGI Routine 09/15/2023 10:22 AM MECHANICAL SERVICE REPRESENTATIVE Visit for screening mammogram EMG GENERIC (SCAN ORDER) 08/12/2023 CORONAVIRUS (COVID 19) STAT 08/01/2023 1:47 PM MECHANICAL SERVICE REPRESENTATIVE INFLUENZA A & B STAT 08/01/2023 1:47 PM MECHANICAL SERVICE REPRESENTATIVE BONE DENSITY/DEXA Routine 07/23/2023 11:19 AM MECHANICAL SERVICE REPRESENTATIVE Age-related osteoporosis without current pathological fracture COLLECTION VENOUS BLOOD VENIPUNCTURE Routine 06/02/2023 9:13 AM CDT Mixed hyperlipidemia COMPREHENSIVE METABOLIC PANEL Routine 06/02/2023 9:13 AM CDT Mixed hyperlipidemia LIPID PANEL Routine 06/02/2023 9:13 AM CDT Mixed hyperlipidemia ECG 12-LEAD Routine 12/16/2022 10:24 AM CDT Hypercholesteremia OUTSIDE LAB (SCAN ORDER) 10/30/2022 CORONAVIRUS (COVID 19) Routine 09/11/2022 8:22 AM MECHANICAL SERVICE REPRESENTATIVE Suspected COVID-19 virus infection CORONAVIRUS (COVID-19) INFLUENZA A & B ANTIGEN IA PANEL Routine 09/11/2022 Suspected COVID-19 virus infection SURG XR FLUOROSCOPY Routine 08/17/2022 3 :28 PM MECHANICAL SERVICE REPRESENTATIVE STONE ANALYSIS Nurse Collected Priority 08/17/2022 3:13 PM MECHANICAL SERVICE REPRESENTATIVE LITHOTRIPSY INLCUDING INSERTION OF INDWELLING URETERAL STENT 08/17/2022 2:30 PM MECHANICAL SERVICE REPRESENTATIVE LEFT KIDNEY STONE Case Notes COLLATERAL ANALYST #4--WANTS TF CBC, AUTO, NO DIFF TIMED 08/17/2022 3: 44 AM MECHANICAL SERVICE REPRESENTATIVE BASIC METABOLIC PANEL TIMED 08/17/2022 3:44 AM MECHANICAL SERVICE REPRESENTATIVE CBC, AUTO, NO DIFF TIMED 08/16/2022 4: 42 AM MECHANICAL SERVICE REPRESENTATIVE BASIC METABOLIC PANEL TIMED 08/16/2022 4:42 AM MECHANICAL SERVICE REPRESENTATIVE CT PEL WO CON Today 08/15/2022 3:11 PM MECHANICAL SERVICE REPRESENTATIVE CT ABD+PEL WO CON STAT 2022 9:2 1 PM MECHANICAL SERVICE REPRESENTATIVE URINALYSIS, AUTO, COMPLETE STAT 2022 9:13 PM MECHANICAL SERVICE REPRESENTATIVE URINE BACTERIA CULTURE Routine 2022 9:11 PM MECHANICAL SERVICE REPRESENTATIVE COMPREHENSIVE METABOLIC PANEL STAT 2022 8:33 PM MECHANICAL SERVICE REPRESENTATIVE CBC W/DIFF AUTOMATED STAT 2022 8:33 PM MECHANICAL SERVICE REPRESENTATIVE OUTSIDE LAB (SCAN ORDER) 2022 OUTSIDE LAB (SCAN ORDER) 2022 MG SCREENING W SRINIVASA WANG DIGI Routine 08/08/2022 12:10 PM MECHANICAL SERVICE REPRESENTATIVE Encounter for screening mammogram for malignant neoplasm of breast CBC W/DIFF AUTOMATED Routine 07/10/2022 8:50 AM CDT Medication management VITAMIN B12 / FOLATE Routine 07/10/2022 8:50 AM CDT Medication management VITAMIN D, 25 OH Routine 07/10/2022 8:50 AM CDT Medication management COMPREHENSIVE METABOLIC PANEL Routine 07/10/2022 8:50 AM CDT Mixed hyperlipidemia LIPID PANEL Routine 07/10/2022 8:50 AM CDT Mixed hyperlipidemia US PELVIC NON OB COMP TA+TV Routine 07/09/2022 1:26 PM CDT Urinary frequency Encounter for mammogram to establish baseline mammogram Low back pain COLONOSCOPY FLX DX W/COLLJ SPEC WHEN PFRMD 12/11/2021 8:13 AM CDT Hematochezia Special Needs 0700 URINE BACTERIA CULTURE Routine 10/07/2021 9:25 AM MECHANICAL SERVICE REPRESENTATIVE Dysuria URINALYSIS AUTO DIP Routine 10/07/2021 Dysuria URINE BACTERIA CULTURE Routine 09/26/2021 7:52 AM MECHANICAL SERVICE REPRESENTATIVE URINALYSIS, AUTO, COMPLETE STAT 09/26/2021 7:52 AM MECHANICAL SERVICE REPRESENTATIVE BONE DENSITY/DEXA Routine 07/22/2021 10:57 AM MECHANICAL SERVICE REPRESENTATIVE Age-related osteoporosis without current pathological fracture DILATE ESOPHAGUS 07/18/2021 10:50 AM MECHANICAL SERVICE REPRESENTATIVE Dysphagia COMPREHENSIVE METABOLIC PANEL Today 07/12/2021 10:34 AM CDT Medication management CBC, AUTO, NO DIFF Today 07/12/2021 10:34 AM CDT Medication management LIPID PANEL Today 07/12/2021 10:34 AM CDT Medication management VITAMIN B12 / FOLATE Today 07/12/2021 10:34 AM CDT Medication management VITAMIN D, 25 OH Today 07/12/2021 10:34 AM CDT Age-related osteoporosis without current pathological fracture Medication management COLLECTION VENOUS BLOOD VENIPUNCTURE Routine 07/12/2021 10:23 AM CDT Medication management MG DIAG ADD VIEW W SRINIVASA RT Routine 07/09/2021 11:20 AM CDT Abnormal mammogram of right breast MG SCREENING W SRINIVASA WANG DIGI Routine 06/28/2021 1:24 PM CDT Visit for screening mammogram CTA NECK Routine 04/30/2021 11:43 AM CDT Oropharyngeal dysphagia CREATININE WHOLE BLOOD Routine 04/30/2021 11:18 AM CDT Oropharyngeal dysphagia UPPER GI ENDOSCOPY,DIAGNOSIS 04/26/2021 9:21 AM CDT History of colon polyps Screening for colon cancer Gastroesophageal reflux disease, unspecified whether esophagitis present Case Notes 0800 Special Needs 0800 XR CHEST PA OR AP 1V Routine 04/24/2021 9:58 AM CDT Gastroesophageal reflux disease, unspecified whether esophagitis present XR HIP LT 2V Routine 07/17/2020 9:23 AM MECHANICAL SERVICE REPRESENTATIVE Chronic hip pain, bilateral XR HIP RT 2V Routine 07/17/2020 9:23 AM MECHANICAL SERVICE REPRESENTATIVE Chronic hip pain, bilateral VITAMIN D, 25 OH Today 06/27/2020 11:53 AM CDT Age-related osteoporosis without current pathological fracture VITAMIN B12 / FOLATE Routine 06/27/2020 11:53 AM CDT Medication management LIPID PANEL Routine 06/27/2020 11:53 AM CDT Medication management CBC, AUTO, NO DIFF Routine 06/27/2020 11:53 AM CDT Medication management COMPREHENSIVE METABOLIC PANEL Routine 06/27/2020 11:53 AM CDT Medication management COLLECTION VENOUS BLOOD VENIPUNCTURE Routine 06/27/2020 11:52 AM CDT Medication management MG SCREENING W SRINIVASA WANG DIGI Routine 05/18/2020 1:05 PM CDT Visit for screening mammogram XR KNEE 4V LT W PATELLA STAT 06/29/2019 1:41 PM CDT Fall (on)(from) sidewalk curb, initial encounter Acute pain of left knee XR WRIST LT MIN 3V STAT 06/29/2019 1: 41 PM CDT Fall (on)(from) sidewalk curb, initial encounter Left wrist pain XR HAND LT 3V STAT 06/29/2019 1:41 PM CDT Fall (on)(from) sidewalk curb, initial encounter Left hand pain COMPREHENSIVE METABOLIC PANEL Today 06/08/2019 10:21 AM CDT Medication management CBC, AUTO, NO DIFF Today 06/08/2019 10:21 AM CDT Medication management LIPID PANEL Today 06/08/2019 10:21 AM CDT Medication management VITAMIN B12 / FOLATE Today 06/08/2019 10:21 AM CDT Medication management URINE BACTERIA CULTURE Today 06/08/2019 10:15 AM CDT Left flank pain COLLECTION VENOUS BLOOD VENIPUNCTURE Routine 06/08/2019 10:06 AM CDT Medication management URINALYSIS AUTO DIP Routine 06/08/2019 Left flank pain MG SCREENING W SRINIVASA WANG DIGI Routine 04/29/2019 12:46 PM CDT Other screening mammogram BONE DENSITY/DEXA Routine 02/14/2019 10:54 AM CDT Asymptomatic menopausal state Screening for osteoporosis PATHOLOGY GENERIC (SCAN ORDER) Routine 01/19/2019 LIPID PANEL Routine 01/17/2019 10:52 AM CDT LIPID PANEL Routine 01/17/2019 10:52 AM CDT Mixed hyperlipidemia Medication management COLLECTION VENOUS BLOOD VENIPUNCTURE Routine 01/17/2019 Mixed hyperlipidemia Medication management VITAMIN B12 / FOLATE Routine 12/20/2018 11:38 AM CDT VITAMIN B12 / FOLATE Routine 12/20/2018 11:38 AM CDT Screening for deficiency anemia COLLECTION VENOUS BLOOD VENIPUNCTURE Routine 12/20/2018 Screening for deficiency anemia CT GENERIC Routine 10/20/2018 IMAGE GENERIC Routine 10/18/2018 XR RIBS LT+PA CHEST 09/09/2018 1 :44 PM MECHANICAL SERVICE REPRESENTATIVE ECG GENERIC (SCAN ORDER) Routine 08/17/2018 4:36 PM MECHANICAL SERVICE REPRESENTATIVE HEMOGLOBIN, GLYCOSYLATED Routine 06/25/2018 2:29 AM CDT HEALTH FAIR WITH LIPID Routine 06/25/2018 2:29 AM CDT VITAMIN D, 25 OH Routine 12/29/2017 3:49 AM CDT HEMOGLOBIN, GLYCOSYLATED Routine 12/29/2017 3:49 AM CDT HEALTH FAIR WITH LIPID Routine 12/29/2017 3:49 AM CDT URIC ACID BLOOD Routine 06/05/2017 11:57 AM CDT URINE BACTERIA CULTURE Routine 04/16/2017 9:56 AM CDT HEMOGLOBIN AND HEMATOCRIT Routine 04/16/2017 9:55 AM CDT NM HEPATOBILIARY SCAN W/GB EJECTION FRACTION Routine 01/17/2016 1:24 PM CDT US ABD LIMITED Routine 01/17/2016 1:22 PM CDT COLONOSCOPY/EGD GENERIC (SCAN ORDER) Routine 01/10/2015 12:00 AM CDT PRV ONLY-RESTING TWELVE LEAD EKG Routine 01/08/2015 1:47 PM CDT MG DIAGNOSTIC LT DIGI Routine 07/17/2014 11:01 AM MECHANICAL SERVICE REPRESENTATIVE US GD BREAST BX LT Routine 12/21/2013 1: 43 PM CDT MG DIAGNOSTIC LT DIGI Routine 12/21/2013 1:43 PM CDT TISSUE EXAM BY PATHOLOGIST Routine 12/21/2013 12:00 AM CDT URINE BACTERIA CULTURE Routine 10/14/2013 6:20 PM MECHANICAL SERVICE REPRESENTATIVE URINALYSIS AUTO DIP Routine 10/14/2013 1 :24 PM MECHANICAL SERVICE REPRESENTATIVE URINE BACTERIA CULTURE Routine 09/23/2013 6:12 PM MECHANICAL SERVICE REPRESENTATIVE URINALYSIS AUTO DIP Routine 09/23/2013 1 :27 PM MECHANICAL SERVICE REPRESENTATIVE URINE BACTERIA CULTURE Routine 07/19/2013 3:07 PM MECHANICAL SERVICE REPRESENTATIVE URINALYSIS WI REFLEX TO CULTURE Routine 07/19/2013 3:06 PM MECHANICAL SERVICE REPRESENTATIVE URINE BACTERIA CULTURE Routine 07/04/2013 3:27 PM CDT URINALYSIS AUTO DIP Routine 07/04/2013 12:03 PM CDT URINE BACTERIA CULTURE Routine 06/29/2013 5:23 PM CDT URINALYSIS AUTO DIP Routine 06/29/2013 1 :17 PM CDT URINALYSIS WI REFLEX TO CULTURE Routine 06/15/2013 3:55 PM CDT MAGNESIUM Routine 11/04/2012 6:00 PM MECHANICAL SERVICE REPRESENTATIVE BASIC METABOLIC PANEL Routine 11/04/2012 6:00 PM MECHANICAL SERVICE REPRESENTATIVE COLONOSCOPY Routine MECHANICAL SERVICE REPRESENTATIVE Results * US BREAST RT [employer] (08/01/2024 2:01 PM MECHANICAL SERVICE REPRESENTATIVE) Only the most recent of2 resultswithin the time period is included. Anatomical Region Laterality Modality Breast Right Ultrasound 08/01/2024 2:17 PM MECHANICAL SERVICE REPRESENTATIVE Impressions 08/01/2024 2:19 PM MECHANICAL SERVICE REPRESENTATIVE =====IMPRESSION:===== No sonographic findings suggestive of malignancy. Benign lymph node at level of palpable abnormality. ASSESSMENT: ACR BI-RADS 2 - BENIGN FINDING(S) RECOMMENDATION: 1: Routine ScreeningBilateral COMMENTS: Ordered By: VANGIE LAY Interpreted By: Gama Hancock, 08/01/2024 2:17 PM Narrative 08/01/2024 2:19 PM MECHANICAL SERVICE REPRESENTATIVE [facility] [address] [place] [address] EXAMINATION: Right breast ultrasound EXAM DATE/TIME: 08/01/2024 2:01 PM REASON FOR EXAM: Palpable abnormality in the lateral right breast COMPARISON: Diagnostic mammogram, 07/07/2024. 10/23/2023 08/08/2022 TECHNIQUE: Targeted ultrasound of the right breast was performed. FINDINGS: Imaging at the level of palpable abnormality at the 9:00 position of the right breast. 9 cm from the nipple. There is an underlying well-defined hypoechoic nodule with fatty hilum. Flow to the hilum. Consistent with a benign lymph node. Measures 2.6 x 2.7 x 3.5 mm. This corresponds to a superficial lymph node noted at this location on prior mammograms us Vangie Lay [employer]TRAS[employer] Final Result * CORONAVIRUS (COVID-19) INFLUENZA A & B ANTIGEN IA PANEL (08/01/2024) Only the most recent of3 resultswithin the time period is included. CORONAVIRUS ANTIGEN IA NEGATIVE NEGATIVE [id number], [facility] A NEGATIVE NEGATIVE [id number], [place] INFLUENZA B NEGATIVE NEGATIVE MG-[id number], [place] Internal Control: VALID VALID MG-[id number], [place] NASAL STRUCTURE / Unknown 08/01/2024 Mari WATERS MICROBIOLOGY - GENERAL ORDER GAUTAM Final Result Performing Organization Address [facility] Co de Phone Number -[phone] [address], [place] [address] [place] [address], [place] [phone] * RESP SYNCYTIAL VIRUS (08/01/2024) Pathologist [facility] RSV NEGATIVE NEGATIVE -[id number] [facility] Internal Control: VALID VALID -[id number] [facility] NASOPHARYNGEAL SWAB / Unknown 08/01/2024 Mari WATERS MICROBIOLOGY - GENERAL ORDER GAUTAM Final Result Performing Organization Address [facility] de Phone Number [phone] [address], [place] [address] [place] [address], [place] [phone] * VITAMIN B12 / FOLATE (07/15/2024 10:07 AM MECHANICAL SERVICE REPRESENTATIVE) Only the most recent of7 resultswithin the time period is included. Pathologist [facility] VITAMIN B12 S/P/B 548 193 - 986 PG/ML 07/15/2024 3:20 PM MECHANICAL SERVICE REPRESENTATIVE [facility] FOLATE >20.0 8.6 - 58.9 NG/ML 07/15/2024 3:20 PM MECHANICAL SERVICE REPRESENTATIVE [facility] 07/15/2024 10:0 7 AM MECHANICAL SERVICE REPRESENTATIVE Vangie Lay NP LABORATORY Final Result Performing Organization Address City/[facility] Co de Phone Number [facility] [address] [place] [address], [place] [phone] * (ABNORMAL) HEMOGLOBIN, GLYCOSYLATED (07/15/2024 10:07 AM MECHANICAL SERVICE REPRESENTATIVE) Only the most recent of3 resultswithin the time period is included. Pathologist [facility] HGB A1C 6.2(H) <5.7 % 07/15/2024 2:49 PM [facility] Comment: INCREASED RISK OF DIABETES <5.7% NON-DIABETES 5.7-6.4% INCREASED RISK FOR FUTURE DIABETES > OR = 6.5 CONSISTENT WITH DIABETES STANDARDS OF MEDICAL CARE IN DIABETES-2010 DIABETES CARE, 33(SUPP 1): S1-S61,2010 ESTIMATED AVG GLUCOSE 131 mg/dL 07/15/2024 2:49 PM [facility] 07/15/2024 10:0 7 AM MECHANICAL SERVICE REPRESENTATIVE us Vangie Lay NP LABORATORY Final Result [facility] [address] [place] [address], [place] [phone] * (ABNORMAL) CBC W/DIFF AUTOMATED (07/15/2024 10:07 AM MECHANICAL SERVICE REPRESENTATIVE) Only the most recent of3 resultswithin the time period is included. Pathologist [facility] WBC 4.01(L) 4.4 - 11.0 x10'3/uL 07/15/2024 2:09 PM [facility] RBC 4.57 4.50 - 5.10 x10'6/uL 07/15/2024 2:09 PM [facility] HGB 14.5 12.3 - 15.3 G/DL 07/15/2024 2:09 PM [facility] HCT 45.0(H) 35.9 - 44.6 % 07/15/2024 2:09 PM [facility] MCV 98.5(H) 80.0 - 96.0 FL 07/15/2024 2:09 PM [facility] MCH 31.7(H) 25.3 - 30.9 PG 07/15/2024 2:09 PM [facility] MCHC 32.2 31.0 - 34.1 G/DL 07/15/2024 2:09 PM [facility] RDW 13.0 12.4 - 15.1 % 07/15/2024 2:09 PM [facility] PLT 242 151 - 353 x10'3/uL 07/15/2024 2:09 PM [facility] MPV 9.7 9.6 - 12.0 FL 07/15/2024 2:09 PM [facility] RBC MORPHOLOGY NORMAL 07/15/2024 2:09 PM [facility] PLT MORPH. NORMAL 07/15/2024 2:09 PM [facility] WBC MORPHOLOGY NORMAL 07/15/2024 2:09 PM [facility] LYMPHOCYTES % 34.7 15.8 - 45.0 % 07/15/2024 2:09 PM [facility] NEUTROPHILS % 45.1 42.1 - 71.9 % 07/15/2024 2:09 PM [facility] MONOCYTES % 13.5(H) 5.7 - 12.5 % 07/15/2024 2:09 PM [facility] EOSINOPHILS 5.7(H) 0.0 - 5.6 % 07/15/2024 2:09 PM [facility] BASOPHILS 1.0 0.0 - 1.3 % 07/15/2024 2:09 PM [facility] ABS. NEUTROPHILS 1.81 1.40 - 6.00 x10'3/uL 07/15/2024 2:09 PM [facility] IMMATURE GRANS % 0.0 0.0 - 0.5 % 07/15/2024 2:09 PM MECHANICAL SERVICE REPRESENTATIVE [facility] ABS. LYMPHOCYTES 1.39 0.80 - 4.70 x10'3/uL 07/15/2024 2:09 PM MECHANICAL SERVICE REPRESENTATIVE [facility] 07/15/2024 10:0 7 AM MECHANICAL SERVICE REPRESENTATIVE us Vangie Lay NP LABORATORY Final Result [facility] [address] [place] [address], * MG DIAG W SRINIVASA RT DIGI (07/07/2024 10:07 AM CDT) Anatomical Region Laterality Modality Breast Right Mammography, Rad iographic Imaging 07/07/2024 10:0 6 AM CDT Impressions 07/07/2024 10:08 AM CDT IMPRESSION: Postbiopsy changes right breast. No suspicious changes. Patient may return to screening mammography. Findings reviewed and discussed with the patient in the presence of the technologist, MS. Assessment: ACR BI-RADS 2 - BENIGN FINDING(S) Recommendation : 1. Return to year screen in 6 monthsBilateral Comments: Ordered By: KG PATEL Interpreted By: Savage Webster MD, 07/07/2024 10:06 AM Narrative 07/07/2024 10:08 [place] [address] Examination: Digital right diagnostic mammogram with 3-D tomosynthesis Clinical history: Prior benign right breast biopsy, December 2023. Comparison: Priors including December 2023, September 2023, August 2022. Technique: Digital diagnostic mammography of the right breast was performed in addition to 3-D Tomosynthesis technique. This study was read with the assistance of a computer-aided detection system. Tissue density: There are scattered areas of fibroglandular density. Findings: Postbiopsy changes are present in the medial upper right breast. No dominant masses or suspicious calcifications are present within the right breast. us Kg Patel MD MAMMO Final Result * (ABNORMAL) COMPREHENSIVE METABOLIC PANEL (06/06/2024 8:45 AM CDT) Only the most recent of7 resultswithin the time period is included. GLUCOSE 116(H) 70 - 99 MG/DL 06/06/2024 9:50 AM CDT [facility] BUN 16 7 - 18 MG/DL 06/06/2024 9:50 AM CDT [facility] CREATININE S/P/B 0.85 0.55 - 1.02 MG/DL 06/06/2024 9:50 AM CDT [facility] SODIUM S/P/B 140 136 - 145 MMOL/L 06/06/2024 9:50 AM CDT [facility] POTASSIUM S/P/B 4.4 3.5 - 5.1 MMOL/L 06/06/2024 9:50 AM CDT [facility] CHLORIDE S/P/B 103 100 - 108 MMOL/L 06/06/2024 9:50 AM CDT [facility] CO2 31.0 21 - 32 MMOL/L 06/06/2024 9:50 AM CDT [facility] CALCIUM S/P/B 9.3 8.5 - 10.1 MG/DL 06/06/2024 9:50 AM CDT [facility] BILIRUBIN TOTAL S/P/B 0.5 0.2 - 1.2 MG/DL 06/06/2024 9:50 AM CDT [facility] TOTAL PROTEIN S/P/B 7.1 6.4 - 8.2 G/DL 06/06/2024 9:50 AM CDT [facility] ALBUMIN S/P/B 3.6 3.4 - 5.0 G/DL 06/06/2024 9:50 AM CDT [facility] AST 22 15 - 37 U/L 06/06/2024 9:50 AM CDT [facility] ALT 27 14 - 55 U/L 06/06/2024 9:50 AM CDT [facility] ALKALINE PHOSPHATASE S/P/B 106 50 - 136 U/L 06/06/2024 9:50 AM T [facility] ANION GAP 6.0 5 - 15 MMOL/L 06/06/2024 9:50 AM T [facility] BUN CREATININE RATIO 18.8 6 - 26 06/06/2024 9:50 AM T [facility] A/G RATIO 1.0 1.0 - 2.0 RATIO 06/06/2024 9:50 AM [facility] GFR ESTIMATE 74(L) >90 ML/MIN/1.7 3 M2 06/06/2024 9:50 AM T [facility] Comment: NOTE: eGFR is not calculated for patients <18 years of age. This is an estimated GFR calculation using the new CKD EPI creatinine equation without race and so does not require a correction factor for race. This estimated GFR should not be used for calculating drug doses. 06/06/2024 8:45 AM CDT us José Miguel Gallagher MD LABORATORY Final Resul t [facility] [address] [place] [address], * (ABNORMAL) LIPID PANEL (06/06/2024 8:45 AM CDT) Only the most recent of8 resultswithin the time period is included. CHOLESTEROL 223(H) <200.0 MG/DL 06/06/2024 9:50 AM CDT [facility] TRIGLYCERIDES 85 <150 MG/DL 06/06/2024 9:50 AM CDT [facility] HDL 83 >40.0 MG/DL 06/06/2024 9:50 AM CDT [facility] LDL (CALCULATED) 123(H) <100 MG/DL 06/06/2024 9:50 AM CDT [facility] NON HDL CHOLESTEROL 140(H) <130 MG/DL 06/06/2024 9:50 AM CDT [facility] CHOL/HDL RATIO 2.7 0.0 - 4.5 06/06/2024 9:50 AM CDT [facility] VLDL CALCULATION 17 5 - 55 MG/DL 06/06/2024 9:50 AM T [facility] LIPID INTERPRETATION 06/06/2024 9:50 AM CDT [facility] Comment: [facility] REPORT RECOMMENDATIONS: ADULT CHILD LOW RISK: CHOLESTEROL <200 <170 TRIGLYCERIDE <150 --- HDL >=60 --- LDL <100 <110 BORDERLINE: CHOLESTEROL 200-239 170-199 TRIGLYCERIDE 150-199 --- HDL 40-59 --- LDL 100-159 110-129 HIGH RISK: CHOLESTEROL >=240 >=200 TRIGLYCERIDE >=200 --- HDL <40 --- LDL >=160 >=130 06/06/2024 8:45 AM CDT us José Miguel Gallagher MD LABORATORY Final Resul t [facility] [address] [place] [address], * URIC ACID BLOOD (06/06/2024 8:45 AM CDT) Only the most recent of3 resultswithin the time period is included. Pathologist [facility] URIC ACID 5.5 2.6 - 6.0 MG/DL 06/06/2024 9:50 AM CDT [facility] 06/06/2024 8:45 AM CDT us José Miguel Gallagher MD LABORATORY Final Resul t [facility] [address] [place] [address], * XR FOOT LT 3V (03/25/2024 3:47 PM CDT) Anatomical Region Laterality Modality Foot Radiographic Celeste ging 03/28/2024 9:40 AM CDT Impressions 03/28/2024 9:42 AM CDT IMPRESSION: 1. No acute abnormality. 2. Postoperative changes as described. Ordered By: RUSTAM BARRAZA Interpreted By: Eh Geronimo MD, 03/28/2024 9:40 AM Narrative 03/28/2024 9:42 AM CDT Examination: XR FOOT LT 3V Exam time: 03/25/2024 3:47 PM Clinical history: Pain left foot Comparison: 04/22/2014 left foot Technique: AP, oblique, and lateral views left foot Findings: There is no evidence of fracture or acute osseous abnormality. Left first interphalangeal arthrodesis with intact dorsal screw plate and oblique cannulated screw which traverses the joint. Findings consistent with a healed left second metatarsal head osteotomy. Minimal chronic appearing irregularity articular surface left second metatarsal head. Fusion left fifth middle and distal phalanges consistent with developmental variation. Moderate plantar calcaneal enthesophyte. Small accessory ossification adjacent to the left fifth metatarsal head. No evidence of abnormal soft tissue densities. Procedure Note Eh Geronimo MD - 03/28/2024 Examination: XR FOOT LT 3V Exam time: 03/25/2024 3:47 PM Clinical history: Pain left foot Comparison: 04/22/2014 left foot Technique: AP, oblique, and lateral views left foot Findings: There is no evidence of fracture or acute osseous abnormality. Left first interphalangeal arthrodesis with intact dorsal screw plate andoblique cannulated screw which traverses the joint. Findings consistentwith a healed left second metatarsal head osteotomy. Minimal chronicappearing irregularity articular surface left second metatarsal head. Fusion left fifth middle and distal phalanges consistent withdevelopmental variation. Moderate plantar calcaneal enthesophyte. Small accessory ossification adjacent to the left fifth metatarsal head.No evidence of abnormal soft tissue densities. IMPRESSION: 1. No acute abnormality. 2. Postoperative changes as described. Ordered By: RUSTAM BARRAZA Interpreted By: Eh Geronimo MD, 03/28/2024 9:40 AM us Rustam WATERS GENERAL IMAGING Final Result * (ABNORMAL) BASIC METABOLIC PANEL (03/25/2024 3:15 PM CDT) Only the most recent of4 resultswithin the time period is included. Pathologist [facility] GLUCOSE 104(H) 70 - 99 MG/DL 03/25/2024 5:28 PM CDT [facility] BUN 19(H) 7 - 18 MG/DL 03/25/2024 5:28 PM CDT [facility] CREATININE S/P/B 0.78 0.55 - 1.02 MG/DL 03/25/2024 5:28 PM CDT [facility] SODIUM S/P/B 145 136 - 145 MMOL/L 03/25/2024 5:28 PM CDT [facility] POTASSIUM S/P/B 4.1 3.5 - 5.1 MMOL/L 03/25/2024 5:28 PM CDT [facility] CHLORIDE S/P/B 105 100 - 108 MMOL/L 03/25/2024 5:28 PM CDT [facility] CO2 33.2(H) 21 - 32 MMOL/L 03/25/2024 5:28 PM CDT [facility] CALCIUM S/P/B 9.4 8.5 - 10.1 MG/DL 03/25/2024 5:28 PM CDT [facility] ANION GAP 6.8 5 - 15 MMOL/L 03/25/2024 5:28 PM CDT [facility] BUN CREATININE RATIO 24.4 6 - 26 03/25/2024 5:28 PM CDT [facility] GFR ESTIMATE 82(L) >90 ML/MIN/1.7 3 M2 03/25/2024 5:28 PM CDT [facility] Comment: NOTE: eGFR is not calculated for patients <18 years of age. This is an estimated GFR calculation using the new CKD EPI creatinine equation without race and so does not require a correction factor for race. This estimated GFR should not be used for calculating drug doses. 03/25/2024 3:15 PM CDT us Rustam WATERS LABORATORY Final Result [facility] [address] [place] [address], * MG TISSUE STUDY LOC RT (01/04/2024 1:39 PM CDT) Anatomical Region Laterality Modality Breast Mammography 01/04/2024 2:02 PM CDT Impressions 01/04/2024 2:06 PM CDT IMPRESSION: Stereotactic biopsy performed by Dr. Patel. Postbiopsy changes within the right breast as above corresponding with developing asymmetry on diagnostic mammography. Ordered By: KG PATEL Interpreted By: Sb Borden, 01/04/2024 2:02 PM Narrative 01/04/2024 2:06 PM CDT EXAMINATION: MG POST PROC RT DIAG MAMMO, MG TISSUE STUDY LOC RT [id number] INDICATIONS: Other abnormal and inconclusive findings on diagnostic imaging of breast COMPARISON: 09/15/2023 TECHNIQUE: Specimen radiograph. Digital full field post procedural CC and ML views of the right breast. FINDINGS: Specimen radiograph: 4 core biopsy samples 2 of which contain calcifications. Post biopsy mammography: Postbiopsy changes and associated biopsy clip at the target site of the previously documented asymmetry within the right upper inner anterior depth breast. A radiologist was not present for this procedure. Please see dedicated procedure report for additional real-time findings and impression. Procedure Note Sb Borden MD - 01/04/2024 EXAMINATION: MG POST PROC RT DIAG MAMMO, MG TISSUE STUDY LOC RT [id number] INDICATIONS: Other abnormal and inconclusive findings on diagnosticimaging of breast COMPARISON: 09/15/2023 TECHNIQUE: Specimen radiograph. Digital full field post procedural CC andML views of the right breast. FINDINGS: Specimen radiograph: 4 core biopsy samples 2 of which containcalcifications. Post biopsy mammography: Postbiopsy changes and associated biopsy clip atthe target site of the previously documented asymmetry within the rightupper inner anterior depth breast. A radiologist was not present for this procedure. Please see dedicated procedure report for additional real-time findingsand impression. IMPRESSION: Stereotactic biopsy performed by Dr. Patel. Postbiopsychanges within the right breast as above corresponding with developingasymmetry on diagnostic mammography. Ordered By: KG PATEL Interpreted By: Sb Borden, 01/04/2024 2:02 PM Kg Patel MD MAMMO Final Result * MG POST PROC RT DIAG MAMMO (01/04/2024 1:38 PM CDT) Anatomical Region Laterality Modality Breast Right Mammography 01/04/2024 2:02 PM CDT Impressions 01/04/2024 2:06 PM CDT IMPRESSION: Stereotactic biopsy performed by Dr. Patel. Postbiopsy changes within the right breast as above corresponding with developing asymmetry on diagnostic mammography. Ordered By: ULUNNA K MACBEAN Interpreted By: Sb Borden, 01/04/2024 2:02 PM Narrative 01/04/2024 2:06 PM CDT EXAMINATION: MG POST PROC RT DIAG MAMMO, MG TISSUE STUDY LOC RT [id number] INDICATIONS: Other abnormal and inconclusive findings on diagnostic imaging of breast COMPARISON: 09/15/2023 TECHNIQUE: Specimen radiograph. Digital full field post procedural CC and ML views of the right breast. FINDINGS: Specimen radiograph: 4 core biopsy samples 2 of which contain calcifications. Post biopsy mammography: Postbiopsy changes and associated biopsy clip at the target site of the previously documented asymmetry within the right upper inner anterior depth breast. A radiologist was not present for this procedure. Please see dedicated procedure report for additional real-time findings and impression. us Kg Patel MD MAMMO Final Result * Pathology (01/04/2024 12:00 AM CDT) PATHOLOGY [facility] Department of Laboratory Medicine [address] [place], [place] [address] , extension [phone] Pathology Report Surgical Pathology Report Name: RACHANA SOUTH Specimen #: [id number] Age: 12 1955 (Age: 68) Location: [facility] Sex: F Procedure Date: 01/04/2024 Hospital #: [id number] Date Received: 01/05/2024 Date Reported: 01/07/2024 Provider: KG PATEL MD Source: Breast, right, needle biopsies Clinical History: Abnormal mammogram. Gross Description: Received in formalin, labeled with a patient label and as right breast, are multiple friable, irregular to cylindrical fibrofatty tissues that aggregate 2.0 x 1.5 x 0.9 cm and are entirely submitted in 2 cassettes. Please note: The cold ischemia time for the specimen was less than 1 hour. The specimen was placed in formalin at 1:20 PM on 01/04/24 for a total time in formalin of 29.5 hours. Gross examination (when applicable), interpretation, and sign out were performed at [facility], [address] [place] [address]. FINAL DIAGNOSIS: Right breast, mammographic asymmetry, core biopsy: -Fibroadipose tissue with focal fat necrosis, dense fibrosis, and dystrophic calcification. -Scant benign breast parenchyma with no significant histopathologic abnormality. -No in situ or invasive carcinoma is identified. IC: OWK. Diagnosis Comment: Immunohistochemical stains were utilized in the evaluation of this case. CD31 performed on blocks 1 and 2 demonstrates scattered vascular channels at the periphery of the fat necrosis. CD68 performed on blocks 1 and 2 highlights histiocytes throughout the lesion. Electronically Signed Out CONSUELO RIOS MD [facility] 01/04/2024 01/05/2024 2:5 7 PM CDT Comment:Breast, right, needl e biopsies us Kg Patel MD PATHOLOGY/CYTOLOGY ORDERABLE S Final Result [facility] [address] [place] [address], [id number] * MG DIAG ADD VIEW W SRINIVASA RT (10/23/2023 3:09 PM MECHANICAL SERVICE REPRESENTATIVE) Only the most recent of2 resultswithin the time period is included. Anatomical Region Laterality Modality Breast Right Mammography, Rad iographic Imaging 10/23/2023 3:21 PM MECHANICAL SERVICE REPRESENTATIVE Narrative 10/23/2023 3:25 PM MECHANICAL SERVICE REPRESENTATIVE EXAMINATION: MG DIAG ADD VIEW W SRINIVASA RT, US BREAST RT [employer] [facility] [id number] INDICATIONS: Abnormal mammogram TECHNIQUE: Digital full field true lateral and spot compression CC and MLO diagnostic views of the right breast to include 3-D Tomosynthesis technique. This study was read with the assistance of a computer-aided detection system. Grayscale free hand and grid guided targeted right breast sonogram. HISTORY: Patient presents for diagnostic workup of abnormal screen mammography finding. Prior excisional left breast biopsy. Family history of breast cancer. COMPARISON: Multiple prior examinations available for comparison dating back to 07/22/2006, the most recent of 09/15/2023, 08/08/2022, 06/28/2021, and 05/18/2020. TISSUE DENSITY: There are scattered areas of fibroglandular density. FINDINGS: Mammogram: Subcentimeter focal asymmetry with single round coarse calcification persists with spot compression at the upper slightly inner anterior depth breast. No discrete mass or associated architectural distortion. No suspicious microcalcification. No axillary adenopathy. Sonogram: Targeted free hand ultrasound imaging of the right breast with attention to the 12 through 2:00 axes 3-5 cm from the nipple from the nipple and grid directed ultrasound imaging of the right breast demonstrates homogenous fibroglandular background echotexture without discrete mass, fluid collection, or abnormal shadowing. IMPRESSION: Developing asymmetry without sonographic correlate. Stereotactic biopsy is recommended. RECOMMENDATION: Biopsy should be consideredRight Findings, impression, and recommendation were discussed with the patient immediately following exam completion. Patient prefers tissue sampling given family history of breast cancer. OVERALL IMAGING ASSESSMENT: ACR BI-RADS 4 - SUSPICIOUS FINDING(S) - BIOPSY SHOULD BE CONSIDERED. Ordered By: ZELDA JOHNSTON Interpreted By: Sb Borden, 10/23/2023 3:21 PM Zelda Johnston MD MAMMO Final Result * MAMMOGRAM GENERIC (SCAN ORDER) (10/23/2023) Anatomical Region Laterality Modality Other 10/23/2023 us [facility] Scanned SCANNING Final Resu lt * USV ART DUPLEX+RONY LOW WANG (10/06/2023 1:45 PM MECHANICAL SERVICE REPRESENTATIVE) Anatomical Region Laterality Modality Extremity Ultrasound 10/24/2023 7:50 AM MECHANICAL SERVICE REPRESENTATIVE Impressions 10/24/2023 7:54 AM MECHANICAL SERVICE REPRESENTATIVE IMPRESSION: Normal exam without evidence of arterial stenosis or occlusion. Referred By: JOSÉ MIGUEL GALLAGHER Interpreted By: Tomasz Fernandez MD, 10/24/2023 7:50 AM Narrative 10/24/2023 7:54 AM MECHANICAL SERVICE REPRESENTATIVE EXAM: Bilateral Lower extremity arterial duplex ultrasound INDICATION: Claudication COMPARISON: None FINDINGS: Grayscale and color images show mild atherosclerotic irregularity and calcification of the proximal arteries of the lower extremities. There is no visually apparent stenosis. Peak systolic velocities and waveforms as follows: RIGHT: Common femoral artery: 164 cm/s ; triphasic Profunda femoral artery: 74 cm/s ; triphasic Proximal SFA: 122 cm/s ; triphasic Mid SFA: 104 cm/s ; triphasic Distal SFA: 100 cm/s ; triphasic Proximal popliteal: 71 cm/s ; triphasic Distal popliteal: 78 cm/s ; triphasic Posterior tibial: 104 cm/s ; triphasic Anterior tibial: 76 cm/s ; triphasic Dorsalis pedis: 65 cm/s ; triphasic LEFT: Common femoral artery: 127 cm/s ; triphasic Profunda femoral artery: 119 cm/s ; triphasic Proximal SFA: 136 cm/s ; triphasic Mid SFA: 105 cm/s ; triphasic Distal SFA: 85 cm/s ; triphasic Proximal popliteal: 72 cm/s ; triphasic Distal popliteal: 69 cm/s ; triphasic Posterior tibial: 110 cm/s ; triphasic Anterior tibial: 81 cm/s ; triphasic Dorsalis pedis: 83 cm/s ; triphasic Procedure Note Tomasz Fernandez MD - 10/24/2023 EXAM: Bilateral Lower extremity arterial duplex ultrasound INDICATION: Claudication COMPARISON: None FINDINGS: Grayscale and color images show mild atheroscleroticirregularity and calcification of the proximal arteries of the lowerextremities. There is no visually apparent stenosis. Peak systolicvelocities and waveforms as follows: RIGHT: Common femoral artery: 164 cm/s ; triphasic Profunda femoral artery: 74 cm/s ; triphasic Proximal SFA: 122 cm/s ; triphasic Mid SFA: 104 cm/s ; triphasic Distal SFA: 100 cm/s ; triphasic Proximal popliteal: 71 cm/s ; triphasic Distal popliteal: 78 cm/s ; triphasic Posterior tibial: 104 cm/s ; triphasic Anterior tibial: 76 cm/s ; triphasic Dorsalis pedis: 65 cm/s ; triphasic LEFT: Common femoral artery: 127 cm/s ; triphasic Profunda femoral artery: 119 cm/s ; triphasic Proximal SFA: 136 cm/s ; triphasic Mid SFA: 105 cm/s ; triphasic Distal SFA: 85 cm/s ; triphasic Proximal popliteal: 72 cm/s ; triphasic Distal popliteal: 69 cm/s ; triphasic Posterior tibial: 110 cm/s ; triphasic Anterior tibial: 81 cm/s ; triphasic Dorsalis pedis: 83 cm/s ; triphasic IMPRESSION: Normal exam without evidence of arterial stenosis or occlusion. Referred By: JOSÉ MIGUEL GALLAGHER Interpreted By: Tomasz Fernandez MD, 10/24/2023 7:50 AM us José Miguel Gallagher MD [facility] Final Resul t * MG SCREENING W SRINIVASA WANG DIGI (09/15/2023 10:22 AM MECHANICAL SERVICE REPRESENTATIVE) Only the most recent of5 resultswithin the time period is included. Anatomical Region Laterality Modality Breast Bilateral Mammography 09/15/2023 4:24 PM MECHANICAL SERVICE REPRESENTATIVE Narrative 09/15/2023 4:52 PM MECHANICAL SERVICE REPRESENTATIVE EXAMINATION: MG SCREENING W SRINIVASA WANG DIGI INDICATIONS: Screening TECHNIQUE: Digital full field CC and MLO screening mammography bilaterally to include 3-D Tomosynthesis technique. This study was read with the assistance of a computer-aided detection system. HISTORY: No reported breast complaint. Family history of breast cancer. Prior left breast biopsy. No documented personal or first degree family history of breast cancer. COMPARISON: Multiple prior examinations available for comparison dating back to 07/22/2006, the most recent of 08/08/2022, 07/09/2021, 06/28/2021, and 05/18/2020. TISSUE DENSITY: There are scattered areas of fibroglandular density. FINDINGS: Indeterminate nodular asymmetry within the upper inner anterior depth right breast. Stable mammographic appearance of the left breast to include postbiopsy changes within the upper outer posterior depth breast. No suspicious microcalcification. No axillary adenopathy. IMPRESSION: Indeterminate right breast asymmetry. RECOMMENDATION: Additional ImagingRight OVERALL IMAGING ASSESSMENT: ACR BI-RADS 0 - INCOMPLETE: NEEDS ADDITIONAL IMAGING EVALUATION. Ordered By: ZELDA JOHNSTON Interpreted By: Sb Borden, 09/15/2023 4:24 PM us Zelda Johnston MD MAMMO Final Result * [facility] GENERIC (08/12/2023) 08/12/2023 [facility] Scanned SCANNING Final Resu lt * (ABNORMAL) CORONAVIRUS (COVID-19) MOLECULAR (08/01/2023 1:47 PM MECHANICAL SERVICE REPRESENTATIVE) Only the most recent of2 resultswithin the time period is included. CORONAVIRUS SARS COV 2 RNA POSITIVE( AA) NEGATIVE 08/01/2023 2:22 PM MECHANICAL SERVICE REPRESENTATIVE [facility] Comment: ALERT VALUE CALLED TO AND READ BACK BY: KINZA IN ER [id number] AJD THE ID NOW COVID-19 2.0 TEST HAS BEEN AUTHORIZED BY THE FDA UNDER EAU FOR USE BY AUTHORIZED LABORATORIES. PERFORMED BY NUCLEIC ACID AMPLIFICATION FOR MOLECULAR QUALITATIVE DETECTION OF SARS-COV-2. SPECIMEN TYPE NASAL 08/01/2023 1:46 PM MECHANICAL SERVICE REPRESENTATIVE [facility] NASOPHARYNGEAL SWAB / Unknown 08/01/2023 1:47 PM MECHANICAL SERVICE REPRESENTATIVE us Marium Olivier MD MICROBIOLOGY - GENERAL ORD ERABLES Final Result [facility] [address] [place] [address], * INFLUENZA A & B (08/01/2023 1:47 PM MECHANICAL SERVICE REPRESENTATIVE) SPECIMEN TYPE NASOPHARYNX 08/01/2023 2:23 PM MECHANICAL SERVICE REPRESENTATIVE [facility] INFLUENZA A NEGATIVE NEGATIVE 08/01/2023 2:23 PM MECHANICAL SERVICE REPRESENTATIVE [facility] INFLUENZA B NEGATIVE NEGATIVE 08/01/2023 2:23 PM MECHANICAL SERVICE REPRESENTATIVE [facility] NASOPHARYNGEAL SWAB / Unknown 08/01/2023 1:47 PM MECHANICAL SERVICE REPRESENTATIVE Marium Olivier MD MICROBIOLOGY - GENERAL ORD ERABLES Final Result [facility] [address] [place] [id number], * BONE DENSITY/DEXA (07/23/2023 11:19 AM MECHANICAL SERVICE REPRESENTATIVE) Only the most recent of3 resultswithin the time period is included. Anatomical Region Laterality Modality Bone Bone Density 07/25/2023 10:5 3 AM MECHANICAL SERVICE REPRESENTATIVE Impressions 07/25/2023 10:56 AM MECHANICAL SERVICE REPRESENTATIVE IMPRESSION:===== The patient bone mineral density is osteopenic according to the World Health Organization (WHO) criteria. Referred By: JOSÉ MIGUEL GALLAGHER Interpreted By: Funmi Landry MD, 07/25/2023 10:53 AM Narrative 07/25/2023 10:56 AM MECHANICAL SERVICE REPRESENTATIVE [facility] [address] [address] [place] [address] EXAMINATION: Bone Density Axial EXAM DATE/TIME: 07/23/2023 10:57 AM REASON FOR EXAM: Age-related osteoporosis without current pathological fracture. Postmenopausal state. COMPARISON: 07/22/2021 FINDINGS: DEXA bone densitometry The bone mineral density (BMD) was determined by dual-energy x-ray absorptiometry, the results are as follows: AP Lumbar Spine L1 through L4 BMD Patient (GM/SQCM): 0.956 T-Score (Standard deviations from young adult peak bone density): -0.8 and a Z- Score of 1.3. Scoliosis and osteoarthritis may falsely increase bone mineral density measured in the lumbar spine. There has been interval increase from prior exam. Left femoral neck: BMD Patient (GM/SQCM): 0.603 T-Score (Standard deviations from young adult peak bone density): -2.2 and a Z- Score of -0.4. There has been interval increase from prior exam. Total left hip: BMD Patient (GM/SQCM): 0.876 T-Score (Standard deviations from young adult peak bone density): -0.5 and a Z- Score of 1.0. There has been interval increase from prior exam. 10 year fracture risk using FRAX, fracture risk assessment tool: Major osteoporotic fracture: 12 % Hip fracture: 2.5 % ===== Procedure Note Funmi Landry MD - 06/18/2024 [facility] [address] [place] [address] EXAMINATION: Bone Density Axial EXAM DATE/TIME: 07/23/2023 10:57 AM REASON FOR EXAM: Age-related osteoporosis without current pathologicalfracture. Postmenopausal state. COMPARISON: 07/22/2021 FINDINGS: DEXA bone densitometry The bone mineral density (BMD) was determined bydual-energy x-ray absorptiometry, the results are as follows: AP Lumbar Spine L1 through L4 BMD Patient (GM/SQCM): 0.956 T-Score (Standard deviations from young adult peak bonedensity): -0.8 and a Z- Score of 1.3. Scoliosis and osteoarthritis mayfalsely increase bone mineral density measured in the lumbar spine. Therehas been interval increase from prior exam. Left femoral neck: BMD Patient (GM/SQCM): 0.603 T-Score (Standard deviations from young adult peak bonedensity): -2.2 and a Z- Score of -0.4. There has been interval increasefrom prior exam. Total left hip: BMD Patient (GM/SQCM): 0.876 T-Score (Standard deviations from young adult peak bonedensity): -0.5 and a Z- Score of 1.0. There has been interval increasefrom prior exam. 10 year fracture risk using FRAX, fracture risk assessment tool: Major osteoporotic fracture: 12 % Hip fracture: 2.5 % ===== IMPRESSION:===== The patient bone mineral density is osteopenic according to the WorldHealth Organization (WHO) criteria. Referred By: JOSÉ MIGUEL GALLAGHER Interpreted By: Funmi Landry MD, 07/25/2023 10:53 AM us José Miguel Gallagher MD DEXA Final Resul t * ECG 12 lead (12/16/2022 10:24 AM CDT) 12/16/2022 10:2 4 AM CDT Narrative [facility] ([facility]) RAD - 12/17/2022 10:49 AM CDT [facility] Test Date: 2022-12-16 Pat Name: [facility] Department: Room: Gender: Female Hemodialysis Lab Technician: : 1955 Requested By: FUNMI MITCHELL Order Number: [id number] Reading : Tay Rodriguez Measurements Intervals [place] Rate: 68 P: 63 WI: 143 QRS: 5 QRSD: 86 T: 60 QT: 391 QTc: 417 Interpretive Statements SINUS RHYTHM Compared to ECG 04/16/2017 10:04:31 No significant changes Procedure Note Tay Rodriguez MD - 12/17/2022 [facility] Test Date: 2022-12-16 Pat Name: [facility] Department: Room: Gender: Female Hemodialysis Lab Technician: : 1955 Requested By: FUNMI MITCHELL Order Number: [id number] Christian TOMAS: Tay Rodriguez Measurements Intervals [place] Rate: 68 P: 63 WI: 143 QRS: 5 QRSD: 86 T: 60 QT: 391 QTc: 417 Interpretive Statements SINUS RHYTHM Compared to ECG 04/16/2017 10:04:31 No significant changes us Funmi Mitchell MD ECG ORDERABLES Final Result [facility] ([facility] RAD * OUTSIDE LAB (SCAN) (10/30/2022) Only the most recent of3 resultswithin the time period is included. 10/30/2022 [facility] Scanned SCANNING Final Resu lt * SURG XR FLUOROSCOPY (08/17/2022 3:28 PM MECHANICAL SERVICE REPRESENTATIVE) Anatomical Region Laterality Modality Undefined Radio Fluoroscop y 08/17/2022 3:16 PM MECHANICAL SERVICE REPRESENTATIVE Narrative 08/17/2022 3:16 PM MECHANICAL SERVICE REPRESENTATIVE This report does not contain a radiologist's interpretation. Please review associated procedure and/or operative report. Procedure Note Christopher Tomas, - 08/18/2022 This report does not contain a radiologist's interpretation. Please review associated procedure and/or operative report. us Leander Fisher MD IMAGES ONLY Final Resul t * STONE ANALYSIS (08/17/2022 3:13 PM MECHANICAL SERVICE REPRESENTATIVE) SOURCE KIDNEY STONE 08/17/2022 3:32 PM MECHANICAL SERVICE REPRESENTATIVE [facility] STONE ANALYSIS COMPONENT REPORT 08/23/2022 4:01 PM MECHANICAL SERVICE REPRESENTATIVE [facility] ANDREW CEDILLO Comment: Calcium Oxalate Dihydrate (Weddellite) 20% Calcium Oxalate Monohydrate (Whewellite) 80% This test was developed and its analytical performance characteristics have been determined by [employer]. It has not been cleared or approved by the FDA. This assay has been validated pursuant to the CLIA regulations and is used for clinical purposes. Component 2: END OF REPORT 08/23/2022 4:01 PM MECHANICAL SERVICE REPRESENTATIVE [employer] [facility] ANDREW CEDILLO Comment: Test performed by [facility] [address] [place] [id number] Network Security Consultant: GISSEL CARDENAS M.D. STONE ANALYSIS WEIGHT 0.035 g 08/23/2022 4:01 PM MECHANICAL SERVICE REPRESENTATIVE [employer] [facility] ANDREW CEDILLO Comment: Test Reported by Brandon Francisco, [employer] [place], [address] [place], [place] Tani Lance M.D., Ph.D., Director of Laboratories , [place] [id number] STONE CALCULUS SPECIMEN / Unknown 08/17/2022 3:13 PM MECHANICAL SERVICE REPRESENTATIVE us Leander Fisher MD BODY FLUIDS AND STOOLS ANNY CASAREZ Final Result [employer] [facility] [address] [place], [place] , [place] [phone] [facility] [address] [place] [address], [place] [phone] * (ABNORMAL) CBC, AUTO, NO DIFF (08/17/2022 3:44 AM MECHANICAL SERVICE REPRESENTATIVE) Only the most recent of5 resultswithin the time period is included. WBC 5.5 4.0 - 10.8 x10'3/uL 08/17/2022 4:01 AM [facility] RBC 4.11 4.10 - 5.40 x10'6/uL 08/17/2022 4:01 AM [facility] HGB 13.3 12.0 - 16.0 G/DL 08/17/2022 4:01 AM [facility] HCT 38.8 36.0 - 47.0 % 08/17/2022 4:01 AM MECHANICAL SERVICE REPRESENTATIVE [facility] MCV 94.4 78.0 - 100.0 FL 08/17/2022 4:01 AM [facility] MCH 32.4(H) 27.0 - 31.0 PG 08/17/2022 4:01 AM [facility] MCHC 34.3 33.0 - 36.0 G/DL 08/17/2022 4:01 AM [facility] RDW 12.9 11.5 - 14.5 % 08/17/2022 4:01 AM [facility] PLT 218 150 - 350 x10'3/uL 08/17/2022 4:01 AM MECHANICAL SERVICE REPRESENTATIVE [facility] MPV 9.2 7.4 - 10.4 FL 08/17/2022 4:01 AM MECHANICAL SERVICE REPRESENTATIVE [facility] 08/17/2022 3:44 AM MECHANICAL SERVICE REPRESENTATIVE Katrin Starr MD LABORATORY Final Resul t [facility] [address] [place] [address], [place] [phone] [id number] * CT PEL WO CON (08/15/2022 3:11 PM MECHANICAL SERVICE REPRESENTATIVE) Anatomical Region Laterality Modality Pelvis Computed Tomogra phy 08/15/2022 5:06 PM MECHANICAL SERVICE REPRESENTATIVE Impressions 08/15/2022 6:59 PM MECHANICAL SERVICE REPRESENTATIVE IMPRESSION: 1. Slightly more distal left UVJ 6 mm calculus with improved left hydroureteronephrosis. 2. Nonobstructive bilateral renal calculi, largest measuring 4 mm within the left kidney. 3. Left colonic diverticulosis without evidence of acute diverticulitis. 4. Findings of pelvic floor relaxation The attending radiologist has reviewed the image(s) and agrees with the content of this report. Ordered By: KATRIN STARR Interpreted By: Gissel Gates, 08/15/2022 5:06 PM Narrative 08/15/2022 6:[address] MECHANICAL SERVICE REPRESENTATIVE CT PELVIS - WITHOUT CONTRAST Indication: Reported ureterolithiasis. One week history of left-sided flank pain and increased urinary frequency. No complaints currently reported. Technique: Images were obtained through the pelvis without contrast. Imaging obtained in prone position. No oral contrast was administered. Multiplanar images were reviewed. A dose lowering technique was used for this procedure, which may include, but is not limited to, dose reduction technique, automated exposure control, the use of iterative reconstruction, and ALARA (As Low As Reasonably Achievable) / Image Gently techniques. Comparison study: CT abdomen and pelvis 2022 Findings: Kidneys: A nonobstructive 4 mm calculus is present within the lower pole of the left kidney. 2 additional punctate nonobstructive calculi are present within the upper and lower poles. A punctate, nonobstructive right renal calculus measures less than 2 mm. There is improved left hydronephrosis with minimal residual caliectasis. No right hydronephrosis. A 4.2 cm simple appearing cyst is present within the interpolar region of the right kidney. A 1.7 cm region of hypoattenuation within the lower pole of the right kidney likely similarly represents a parenchymal cyst. No solid renal mass. Improved left hydroureter with minimal residual periureteral inflammatory stranding about the distal left ureter. There is persistence of a 6 mm calculus within the left ureterovesicular junction, possibly slightly more distal migration although this may be secondary to technique. No right hydroureter. No right UVJ abnormality. GI Tract: Stomach, duodenum and small bowel show no acute abnormality. No wall thickening or obstruction identified. The appendix is unremarkable. Diverticulosis of the colon is noted. No changes concerning for acute diverticulitis. Vessels: Aorta is normal caliber with no aneurysmal dilatation. Scattered mild atherosclerotic disease of the abdominal aorta and its branches. Retroperitoneum / Mesentery: No significant retroperitoneal or mesenteric adenopathy. . Peritoneum: No free air, free fluid or intra-abdominal fluid collections. Abdominal wall: Within normal limits. Pelvis Reproductive organs: Postoperative changes consistent with hysterectomy. No pelvic masses. Scattered pelvic phleboliths. Findings moderate pelvic floor relaxation Bladder: Decompressed without wall thickening or pericystic inflammatory changes. Nodes: No significant pelvic or inguinal adenopathy. Bones: No destructive bony changes. Mild lumbar spondylosis. Mild hip osteoarthritis. Procedure Note Tristan Rice MD - 08/15/2022 CT PELVIS - WITHOUT CONTRAST Indication: Reported ureterolithiasis. One week history of left-sidedflank pain and increased urinary frequency. No complaints currentlyreported. Technique: Images were obtained through the pelvis without contrast.Imaging obtained in prone position. No oral contrast was administered.Multiplanar images were reviewed. A dose lowering technique was used for this procedure, which may include,but is not limited to, dose reduction technique, automated exposurecontrol, the use of iterative reconstruction, and ALARA (As Low AsReasonably Achievable) / Image Gently techniques. Comparison study: CT abdomen and pelvis 2022 Findings: Kidneys: A nonobstructive 4 mm calculus is present within the lower poleof the left kidney. 2 additional punctate nonobstructive calculi arepresent within the upper and lower poles. A punctate, nonobstructive rightrenal calculus measures less than 2 mm. There is improved lefthydronephrosis with minimal residual caliectasis. No righthydronephrosis. A 4.2 cm simple appearing cyst is present within the interpolar region ofthe right kidney. A 1.7 cm region of hypoattenuation within the lower poleof the right kidney likely similarly represents a parenchymal cyst. Nosolid renal mass. Improved left hydroureter with minimal residual periureteral inflammatorystranding about the distal left ureter. There is persistence of a 6 mmcalculus within the left ureterovesicular junction, possibly slightly moredistal migration although this may be secondary to technique. No righthydroureter. No right UVJ abnormality. GI Tract: Stomach, duodenum and small bowel show no acute abnormality. Nowall thickening or obstruction identified. The appendix is unremarkable.Diverticulosis of the colon is noted. No changes concerning for acutediverticulitis. Vessels: Aorta is normal caliber with no aneurysmal dilatation. Scatteredmild atherosclerotic disease of the abdominal aorta and its branches. Retroperitoneum / Mesentery: No significant retroperitoneal or mesentericadenopathy. . Peritoneum: No free air, free fluid or intra-abdominal fluidcollections. Abdominal wall: Within normal limits. Pelvis Reproductive organs: Postoperative changes consistent with hysterectomy.No pelvic masses. Scattered pelvic phleboliths. Findings moderate pelvicfloor relaxation Bladder: Decompressed without wall thickening or pericystic inflammatorychanges. Nodes: No significant pelvic or inguinal adenopathy. Bones: No destructive bony changes. Mild lumbar spondylosis. Mild hiposteoarthritis. IMPRESSION: 1. Slightly more distal left UVJ 6 mm calculus with improved lefthydroureteronephrosis. 2. Nonobstructive bilateral renal calculi, largest measuring 4 mm withinthe left kidney. 3. Left colonic diverticulosis without evidence of acute diverticulitis. 4. Findings of pelvic floor relaxation The attending radiologist has reviewed the image(s) and agrees with thecontent of this report. Ordered By: KATRIN STARR Interpreted By: Gissel Gates, 08/15/2022 5:06 PM us Katrin Starr MD CT Final Resul t * CT ABD+PEL WO CON (2022 9:21 PM MECHANICAL SERVICE REPRESENTATIVE) Anatomical Region Laterality Modality Abdomen Computed Tomogra phy 2022 9:43 PM MECHANICAL SERVICE REPRESENTATIVE Impressions 2022 9:55 PM MECHANICAL SERVICE REPRESENTATIVE IMPRESSION: 1. 0.4 cm obstructing left UPJ calculus with concomitant mild hydroureteronephrosis. 2. Nonobstructing bilateral renal calculi measuring up to 0.3 cm in the right and 0.5 cm and the left. Referred By: Interpreted By: Luis Farias MD, 2022 9:43 PM Narrative 2022 9:55 PM MECHANICAL SERVICE REPRESENTATIVE INDICATION: Left lower flank pain. COMPARISON: CT, 19 May 2010 TECHNIQUE: Volumetric multidetector CT images of the abdomen and pelvis were obtained. Multiple planes were reconstructed for examination. A dose lowering technique was used for this procedure, which may include, but is not limited to, dose reduction technique, automated exposure control, the use of iterative reconstruction, and ALARA (As Low As Reasonably Achievable) / Image Gently techniques. FINDINGS: Limited visualization of the lower thorax reveals no acute abnormality. Small hiatal hernia. Normal sized liver. No focal hepatic lesion by noncontrast technique. The gallbladder is unremarkable. Scattered atherosclerosis of the abdominal and pelvic vasculature. No retroperitoneal lymphadenopathy. No evidence of bowel obstruction or inflammation. Normal-appearing appendix. Stomach and duodenum within normal limits. No mesenteric lymphadenopathy. Normal-sized spleen. Senescent pancreas. Pancreatic duct is unremarkable. Adrenal glands within normal limits. 4.4 cm fluid density cyst in the interpolar region of the right kidney. 1.7 cm fluid density cyst in the inferior pole of the right kidney. No further evaluation or dedicated follow-up of these renal cysts is indicated. No right hydronephrosis or hydroureter. 0.2 cm nonobstructing calculus in the inferior pole of the right kidney. 0.3 cm nonobstructing calculus in the interpolar region of the right kidney. 0.5 cm nonobstructing calculus in the inferior pole of the left kidney. 0.2 cm nonobstructing calculi in the interpolar and superior pole of the left kidney. Mild left hydronephrosis. Mild left periureteral fat stranding. 0.4 cm left UVJ calculus. Bladder is decompressed. Hysterectomy. No pelvic lymphadenopathy. No acute osseous abnormality. Chronic multilevel degenerative changes of the spine. Procedure Note Luis Farias MD - 2022 INDICATION: Left lower flank pain. COMPARISON: CT, 19 May 2010 TECHNIQUE: Volumetric multidetector CT images of the abdomen and pelviswere obtained. Multiple planes were reconstructed for examination. A doselowering technique was used for this procedure, which may include, but isnot limited to, dose reduction technique, automated exposure control, theuse of iterative reconstruction, and ALARA (As Low As ReasonablyAchievable) / Image Gently techniques. FINDINGS: Limited visualization of the lower thorax reveals no acute abnormality.Small hiatal hernia. Normal sized liver. No focal hepatic lesion by noncontrast technique. Thegallbladder is unremarkable. Scattered atherosclerosis of the abdominaland pelvic vasculature. No retroperitoneal lymphadenopathy. No evidence of bowel obstruction or inflammation. Normal-appearingappendix. Stomach and duodenum within normal limits. No mesentericlymphadenopathy. Normal-sized spleen. Senescent pancreas. Pancreatic ductis unremarkable. Adrenal glands within normal limits. 4.4 cm fluid density cyst in the interpolar region of the right kidney.1.7 cm fluid density cyst in the inferior pole of the right kidney. Nofurther evaluation or dedicated follow-up of these renal cysts isindicated. No right hydronephrosis or hydroureter. 0.2 cm nonobstructingcalculus in the inferior pole of the right kidney. 0.3 cm nonobstructingcalculus in the interpolar region of the right kidney. 0.5 cm nonobstructing calculus in the inferior pole of the left kidney.0.2 cm nonobstructing calculi in the interpolar and superior pole of theleft kidney. Mild left hydronephrosis. Mild left periureteral fatstranding. 0.4 cm left UVJ calculus. Bladder is decompressed. Hysterectomy. No pelvic lymphadenopathy. No acute osseous abnormality. Chronic multilevel degenerative changes ofthe spine. IMPRESSION: 1. 0.4 cm obstructing left UPJ calculus with concomitant mildhydroureteronephrosis. 2. Nonobstructing bilateral renal calculi measuring up to 0.3 cm in theright and 0.5 cm and the left. Referred By: Interpreted By: Luis Farias MD, 2022 9:43 PM us Marium Olivier MD CT Final Resu lt * (ABNORMAL) URINALYSIS, AUTO, COMPLETE (2022 9:13 PM MECHANICAL SERVICE REPRESENTATIVE) Only the most recent of2 resultswithin the time period is included. COLOR (U) YELLOW 2022 9:25 PM [facility] TRANSPARENCY CLOUDY 2022 9:25 PM [facility] SPECIFIC GRAVITY (U) >1.030(H) 1.000 - 1.030 2022 9:25 PM [facility] U PH 6.0 5.0 - 9.0 2022 9:25 PM [facility] LEUKOCYTES (U) 1+(A) NEGATIVE 2022 9:25 PM [facility] NITRITES NEGATIVE NEGATIVE 2022 9:25 PM [facility] PROTEIN (U) TRACE(A) NEGATIVE 2022 9:25 PM [facility] URINE GLUCOSE NEGATIVE NEGATIVE 2022 9:25 PM [facility] KETONES MG/DL (U) NEGATIVE NEGATIVE 2022 9:25 PM [facility] BILIRUBIN (U) NEGATIVE NEGATIVE 2022 9:25 PM [facility] BLOOD (U) 2+(A) NEGATIVE 2022 9:25 PM MECHANICAL SERVICE REPRESENTATIVE [facility] WBC/HPF 10-25 0 - 5 /HPF 2022 9:25 PM MECHANICAL SERVICE REPRESENTATIVE [facility] RBC/HPF 5-10 0 - 5 /HPF 2022 9:25 PM MECHANICAL SERVICE REPRESENTATIVE [facility] EPI/HPF MODERATE /HPF 2022 9:25 PM MECHANICAL SERVICE REPRESENTATIVE [facility] BACTERIA (U) FEW /HPF 2022 9:25 PM MECHANICAL SERVICE REPRESENTATIVE [facility] URINE SPECIMEN OBTAINED BY CLEAN CATCH PROCEDURE / Unknown 2022 9:13 PM MECHANICAL SERVICE REPRESENTATIVE Marium Olivier MD URINE ORDERABLES Final Res ult Performing Organization Address [facility]/ZIP Co de Phone Number [facility] [address] [place] [address], [place] [phone] * CULTURE URINE (2022 9:11 PM MECHANICAL SERVICE REPRESENTATIVE) Only the most recent of10 resultswithin the time period is included. SPEC DESCRIPTION URINE CLEAN CATCH 2022 9:26 PM [facility] SPECIAL REQUESTS NO SPECIAL REQUEST 2022 9:26 PM [facility] CULTURE RESULT POLYMICROBIAL GROWTH CONSISTENT WITH NORMAL GENITAL TALI. SUSCEPTIBILITIES NOT ROUTINELY PERFORMED. 08/17/2022 8:43 AM MECHANICAL SERVICE REPRESENTATIVE [facility] URINE SPECIMEN OBTAINED BY CLEAN CATCH PROCEDURE / Unknown 2022 9:11 PM MECHANICAL SERVICE REPRESENTATIVE 2022 9:26 PM MECHANICAL SERVICE REPRESENTATIVE Marium Olivier MD MICROBIOLOGY - GENERAL ORD ERABLES Final Result Performing Organization Address City/[facility]/ZIP Co de Phone Number [facility] [address] [place] [address], [place] [phone] [facility] [address] [place] [address], [place] [phone] * VITAMIN D, 25 OH (07/10/2022 8:50 AM CDT) Only the most recent of4 resultswithin the time period is included. VITAMIN D 25 HYDROXY S/P/B 38 30 - 100 NG/ML 07/10/2022 9:55 AM CDT [facility] Comment: INTERPRETATION DEFICIENT <20 INSUFFICIENT 20-29 SUFFICIENT 30-100 07/10/2022 8:50 AM CDT us José Miguel Gallagher MD LABORATORY Final Resul t [facility] [address] [place] [address], [place] [phone] * US PELVIC NON OB COMP TA+TV (07/09/2022 1:26 PM CDT) Anatomical Region Laterality Modality Pelvis Ultrasound 07/09/2022 2:04 PM CDT Impressions 07/09/2022 2:05 PM CDT IMPRESSION:===== 1. Nonvisualization of the uterus or ovaries. Referred By: ZELDA JOHNSTON Interpreted By: Funmi Landry MD, 07/09/2022 2:04 PM Narrative 07/09/2022 2:05 PM CDT EXAMINATION: Non-OB pelvic ultrasound EXAM DATE/TIME: 07/09/2022 1:03 PM REASON FOR EXAM: Encounter for mammogram to establish baseline mammogram, urinary frequency, lower back pain COMPARISON: 08/08/2009 TECHNIQUE: transabdominal and Transvaginalultrasound evaluation of the pelvic contents was performed for analysis of grayscale and color Doppler imaging characteristics. FINDINGS: The uterus and ovaries are not visualized. No ascites or mass lesion is seen. ===== Procedure Note Funmi Landry MD - 07/09/2022 EXAMINATION: Non-OB pelvic ultrasound EXAM DATE/TIME: 07/09/2022 1:03 PM REASON FOR EXAM: Encounter for mammogram to establish baseline mammogram,urinary frequency, lower back pain COMPARISON: 08/08/2009 TECHNIQUE: transabdominal and Transvaginalultrasound evaluation of thepelvic contents was performed for analysis of grayscale and color Dopplerimaging characteristics. FINDINGS: The uterus and ovaries are not visualized. No ascites or masslesion is seen. ===== IMPRESSION:===== 1. Nonvisualization of the uterus or ovaries. Referred By: ZELDA JOHNSTON Interpreted By: Funmi Landry MD, 07/09/2022 2:04 PM us Zelda Johnston MD ULTRASOUND Final Result * URINALYSIS AUTO DIP (10/07/2021) Only the most recent of6 resultswithin the time period is included. COLOR (U) DARK YELLOW MG-[id number], [place] TRANSPARENCY CLOUDY MG-[address], [facility] GLUCOSE (U) NEGATIVE NEGATIVE MG/DL MG-[address], [facility] BILIRUBIN (U) NEGATIVE NEGATIVE MG-[address], [facility] KETONES MG/DL (U) NEGATIVE NEGATIVE MG/DL MG-[address], [facility] SPECIFIC GRAVITY (U) >=1.035 1.001 - 1.035 MG-[address], [facility] BLOOD (U) NEGATIVE NEGATIVE MG-[address], [facility] U PH 5.5 5.0 - 9.0 MG-[address], [facility] PROTEIN (U) NEGATIVE NEGATIVE mg/dL MG-[address], [facility] UROBILINOGEN 0.2 0.2 - 1.0 EU/dL = mg/dL MG-[address] [place] NITRITES NEGATIVE NEGATIVE MG/DL MG-[address] [place] LEUKOCYTES (U) 1+ (SMALL) NEGATIVE MG-[address] [place] URINE SPECIMEN FROM URETHRA / Unknown 10/07/2021 Sher Loera MD URINE ORDERABLES Final R esult -[id number] [place] [address] [place] [address], * CTA NECK (04/30/2021 11:43 AM CDT) Anatomical Region Laterality Modality Neck Computed Tomogra phy 04/30/2021 1:58 PM CDT Impressions 04/30/2021 2:05 PM CDT IMPRESSION: 1. NO EVIDECE OF HEMODYNAMICALLY SIGNIFICANT STENOSIS. MILD SCATTERED PLAQUE FORMATION IS PRESENT. 2. NO NECK MASS OR PATHOLOGIC LYMPHADENOPATHY 3. AIRWAY IS PATENT. VISUALIZED LUNG APICES ARE CLEAR OF ACUTE PROCESS. 4. Base of the tongue and preepiglottic fat and epiglottis and true and false vocal cord regions and thyroid gland are grossly within normal limits. Mild degenerative change in cervical spine Referred By: MADI YANEZ Interpreted By: Gama Hancock, 04/30/2021 1:58 PM Narrative 04/30/2021 2:05 PM CDT IMAGING STUDIES: CTA NECK DATE: 04/30/2021 11:09 AM COMPARISON: No comparisons. HISTORY: Neck mass, nonpulsatile . Neck pain. Dysphasia. Abnormality seen on upper endoscopy FINDINGS: 1. CT ANGIOGRAM OF THE NECK VASCULATURE WITH CONTRAST. IV ADMINISTRATION OF 75 [address]. . Radiation dose reduction technique was utilized. 2. When evaluating the nasopharynx and oropharynx, there is no distinct abnormality. The cervical esophagus is grossly within normal limits without adjacent distinct mass. 3. WITHIN THE BILATERAL CAROTID BULBS, THERE IS NO DISTINCT NARROWING. NO NARROWING AT THE ORIGINS OF BOTH EXTERNAL CAROTID ARTERIES. Minimal plaque formation within both carotid bulbs. 4. THERE IS minor PLAQUE FORMATION AT THE ORIGIN OF THE right and left internal carotid arteries.. 5. VISUALIZED AIRWAY IS PATENT. BOTH PAROTID GLANDS AND SUBMANDIBULAR GLANDS ARE WITHIN NORMAL LIMITS. NO NECK MASS OR PATHOLOGIC LYMPHADENOPATHY. Exam was not tailored to assess the origins of the great vessels. Procedure Note oJn Hancock MD - 04/30/2021 IMAGING STUDIES: CTA NECKDATE: 04/30/2021 11:09 AM COMPARISON: No comparisons. HISTORY: Neck mass, nonpulsatile . Neck pain. Dysphasia. Abnormalityseen on upper endoscopy FINDINGS: 1. CT ANGIOGRAM OF THE NECK VASCULATURE WITH CONTRAST. IV ADMINISTRATIONOF 75 [address]. . Radiation dose reduction technique wasutilized. 2. When evaluating the nasopharynx and oropharynx, there is no distinctabnormality. The cervical esophagus is grossly within normal limitswithout adjacent distinct mass. 3. WITHIN THE BILATERAL CAROTID BULBS, THERE IS NO DISTINCT NARROWING. NONARROWING AT THE ORIGINS OF BOTH EXTERNAL CAROTID ARTERIES. Minimal plaqueformation within both carotid bulbs. 4. THERE IS minor PLAQUE FORMATION AT THE ORIGIN OF THE right and leftinternal carotid arteries.. 5. VISUALIZED AIRWAY IS PATENT. BOTH PAROTID GLANDS AND SUBMANDIBULARGLANDS ARE WITHIN NORMAL LIMITS. NO NECK MASS OR PATHOLOGICLYMPHADENOPATHY. Exam was not tailored to assess the origins of the greatvessels. IMPRESSION: 1. NO EVIDECE OF HEMODYNAMICALLY SIGNIFICANT STENOSIS. MILD SCATTEREDPLAQUE FORMATION IS PRESENT. 2. NO NECK MASS OR PATHOLOGIC LYMPHADENOPATHY 3. AIRWAY IS PATENT. VISUALIZED LUNG APICES ARE CLEAR OF ACUTE PROCESS. 4. Base of the tongue and preepiglottic fat and epiglottis and true andfalse vocal cord regions and thyroid gland are grossly within normallimits. Mild degenerative change in cervical spine Referred By: MADI YANEZ Interpreted By: Gama Hancock, 04/30/2021 1:58 PM us Madi Yanez MD CT Final Result * CREATININE WHOLE BLOOD (Radiology only) (04/30/2021 11:18 AM CDT) CREATININE WHOLE BLOOD 0.8 0.6 - 1.2 MG/DL 04/30/2021 5:32 PM CDT [facility] 04/30/2021 11:1 8 AM CDT us Madi Yanez MD LABORATORY Final Result [facility] [address] [place] [address], [place] [phone] * XR CHEST PA OR AP 1V (04/24/2021 9:58 AM CDT) Anatomical Region Laterality Modality Chest Radiographic Celeste ging 04/24/2021 11:0 0 AM CDT Impressions 04/24/2021 11:02 AM CDT IMPRESSION: 1. No evidence of acute cardiopulmonary disease. Marker placed over the region of palpable lesion along the medial aspect of the right clavicle without gross underlying abnormality. 2. No evidence of pleural effusion or pneumothorax. No CHF. Stable mild scattered interstitial fibrosis. 3. Atherosclerotic aorta. Mild cardiomegaly. Degenerative change in thoracic spine. Osteopenia Referred By: MADI YANEZ Interpreted By: Gama Hnacock, 04/24/2021 11:00 AM Narrative 04/24/2021 11:02 AM CDT IMAGING STUDIES: XR CHEST PA OR AP 1V DATE: 04/24/2021 9:46 AM CLINICAL HISTORY: lump . Palpable lump along medial aspect of clavicle. Gastroesophageal reflux. COMPARISON: 09/09/2018 Procedure Note Jon Hancock MD - 04/24/2021 IMAGING STUDIES: XR CHEST PA OR AP 1V DATE: 04/24/2021 9:46 AM CLINICAL HISTORY: lump . Palpable lump along medial aspect of clavicle.Gastroesophageal reflux. COMPARISON: 09/09/2018 IMPRESSION: 1. No evidence of acute cardiopulmonary disease. Marker placed over theregion of palpable lesion along the medial aspect of the right claviclewithout gross underlying abnormality. 2. No evidence of pleural effusion or pneumothorax. No CHF. Stable mildscattered interstitial fibrosis. 3. Atherosclerotic aorta. Mild cardiomegaly. Degenerative change inthoracic spine. Osteopenia Referred By: MADI YANEZ Interpreted By: Gama Hancock, 04/24/2021 11:00 AM us Madi Yanez MD GENERAL IMAGING Final Result * XR HIP RT 2V (07/17/2020 9:23 AM MECHANICAL SERVICE REPRESENTATIVE) Anatomical Region Laterality Modality Hip Radiographic Celeste ging 07/17/2020 9:34 AM MECHANICAL SERVICE REPRESENTATIVE Impressions 07/17/2020 9:35 AM MECHANICAL SERVICE REPRESENTATIVE FINDINGS AND IMPRESSION: 1. No definitive evidence of acute fracture or dislocation. No destructive or lytic lesions. No radiopaque foreign bodies or abnormal soft tissue calcifications noted. 2. Moderate degenerative changes of the right hip manifested by mild joint space narrowing, subchondral cysts, subchondral sclerosis. Interpreted By: Jarrett Dee, 07/17/2020 9:34 AM Narrative 07/17/2020 9:35 AM MECHANICAL SERVICE REPRESENTATIVE IMAGING STUDIES: XR HIP RT 2V DATE: 07/17/2020 9:05 AM COMPARISON STUDIES: No previous available. CLINICAL HISTORY: Chronic hip pain . Additional history Procedure Note Jarrett Dee MD - 07/17/2020 IMAGING STUDIES: XR HIP RT 2V DATE: 07/17/2020 9:05 AM COMPARISON STUDIES: No previous available. CLINICAL HISTORY: Chronic hip pain . Additional history FINDINGS AND IMPRESSION: 1. No definitive evidence of acute fracture or dislocation. Nodestructive or lytic lesions. No radiopaque foreign bodies or abnormal soft tissue calcifications noted. 2. Moderate degenerative changes of the right hip manifested by mildjoint space narrowing, subchondral cysts, subchondral sclerosis. Interpreted By: Jarrett Dee, 07/17/2020 9:34 AM us Don Espinoza MD GENERAL IMAGING Final Res ult * XR HIP LT 2V (07/17/2020 9:23 AM MECHANICAL SERVICE REPRESENTATIVE) Anatomical Region Laterality Modality Hip Radiographic Celeste ging 07/17/2020 9:35 AM MECHANICAL SERVICE REPRESENTATIVE Impressions 07/17/2020 9:35 AM MECHANICAL SERVICE REPRESENTATIVE FINDINGS AND IMPRESSION: 1. No definitive evidence of acute fracture or dislocation. No destructive or lytic lesions. No radiopaque foreign bodies or abnormal soft tissue calcifications noted. 2. Mild degenerative changes of the left hip manifested by minimal joint space narrowing, subchondral sclerosis and subchondral cysts. 3. Bone island left femoral neck. Interpreted By: Jarrett Dee, 07/17/2020 9:35 AM Narrative 07/17/2020 9:35 AM MECHANICAL SERVICE REPRESENTATIVE IMAGING STUDIES: XR HIP LT 2V DATE: 07/17/2020 9:05 AM COMPARISON STUDIES: Pelvis 06/05/2017. CLINICAL HISTORY: Chronic hip pain . Additional history Procedure Note Jarrett Dee MD - 07/17/2020 IMAGING STUDIES: XR HIP LT 2V DATE: 07/17/2020 9:05 AM COMPARISON STUDIES: Pelvis 06/05/2017. CLINICAL HISTORY: Chronic hip pain . Additional history FINDINGS AND IMPRESSION: 1. No definitive evidence of acute fracture or dislocation. Nodestructive or lytic lesions. No radiopaque foreign bodies or abnormal soft tissue calcifications noted. 2. Mild degenerative changes of the left hip manifested by minimaljoint space narrowing, subchondral sclerosis and subchondral cysts. 3. Bone island left femoral neck. Interpreted By: Jarrett Dee, 07/17/2020 9:35 AM us Don Espinoza MD GENERAL IMAGING Final Res ult * XR KNEE 4V LT W PATELLA (06/29/2019 1:41 PM CDT) Anatomical Region Laterality Modality Knee Radiographic Celeste ging 06/29/2019 1:43 PM CDT Impressions 06/29/2019 1:43 PM CDT IMPRESSION: No evidence of joint effusion, radiopaque loose body, actue fracture, or dislcoation. Only mild osteoarthritic changes. Interpreted By: Lee Garcia, 06/29/2019 1:43 PM Narrative 06/29/2019 1:43 PM CDT IMAGING STUDIES: XR KNEE 4V LT W PATELLA DATE: 06/29/2019 1:24 PM INDICATION: fall - trauma, pain COMPARISON: No comparisons. TECHNIQUE: 3 views Procedure Note Lee Garcia MD - 06/29/2019 IMAGING STUDIES: XR KNEE 4V LT W PATELLA DATE: 06/29/2019 1:24 PM INDICATION: fall - trauma, pain COMPARISON: No comparisons. TECHNIQUE: 3 views IMPRESSION: No evidence of joint effusion, radiopaque loose body, actue fracture, or dislcoation. Only mild osteoarthritic changes. Interpreted By: Lee Garcia, 06/29/2019 1:43 PM us Don Espinoza MD GENERAL IMAGING Final Res ult * XR WRIST LT MIN 3V (06/29/2019 1:41 PM CDT) Anatomical Region Laterality Modality Wrist Radiographic Celeste ging 06/29/2019 1:43 PM CDT Impressions 06/29/2019 1:44 PM CDT IMPRESSION: No gross evidence of acute fracture, dislocation or radiopaque foreign body. Severe degenerative changes first carpal metacarpal joint with bony fragmentation which appears chronic. 2 mm well-corticated bony density lies volar to the distal radius and ulna identified in the lateral view. This is likely chronic and less symptoms localize directly to this region. If pain localizes to this region consider correlation with CT. Should symptoms persist and occult fracture be considered, recommend follow-up in 3-5 days. Interpreted By: Lee Garcia, 06/29/2019 1:43 PM Narrative 06/29/2019 1:44 PM CDT IMAGING STUDIES: XR WRIST LT MIN 3V EXAM DATE/TIME: 06/29/2019 1:24 PM INDICATION: trauma - fall; pain COMPARISON: No comparison. TECHNIQUE: 3 views. Procedure Note Lee Garcia MD - 06/29/2019 IMAGING STUDIES: XR WRIST LT MIN 3V EXAM DATE/TIME: 06/29/2019 1:24 PM INDICATION: trauma - fall; pain COMPARISON: No comparison. TECHNIQUE: 3 views. IMPRESSION: No gross evidence of acute fracture, dislocation or radiopaque foreign body. Severe degenerative changes first carpal metacarpal joint withbony fragmentation which appears chronic. 2 mm well-corticated bony density lies volar to the distal radius andulna identified in the lateral view. This is likely chronic and less symptoms localize directly to this region. If pain localizes to this regionconsider correlation with CT. Should symptoms persist and occult fracture be considered, recommend follow-up in 3-5 days. Interpreted By: Lee Garcia, 06/29/2019 1:43 PM us Don Espinoza MD GENERAL IMAGING Final Res ult * XR HAND LT 3V (06/29/2019 1:41 PM CDT) Anatomical Region Laterality Modality Hand Radiographic Celeste ging 06/29/2019 1:44 PM CDT Impressions 06/29/2019 1:45 PM CDT IMPRESSION: Severe osteoarthritic changes worse within the interphalangeal joints and first carpal metacarpal joint. 2 mm bony density noted along the volar aspect of the distal radius. Correlate for symptoms localize into this region. No other evidence to suggest acute fracture or dislocation. Interpreted By: Lee Garcia, 06/29/2019 1:44 PM Narrative 06/29/2019 1:45 PM CDT IMAGING STUDIES: XR HAND LT 3V DATE: 06/29/2019 1:24 PM INDICATION: fall - trauma, pain COMPARISON: No comparisons. TECHNIQUE: 3 views Procedure Note Lee Garcia MD - 06/29/2019 IMAGING STUDIES: XR HAND LT 3V DATE: 06/29/2019 1:24 PM INDICATION: fall - trauma, pain COMPARISON: No comparisons. TECHNIQUE: 3 views IMPRESSION: Severe osteoarthritic changes worse within the interphalangeal jointsand first carpal metacarpal joint. 2 mm bony density noted along the volar aspect of the distal radius. Correlate for symptoms localize into this region. No other evidence to suggest acute fracture or dislocation. Interpreted By: Lee Garcia, 06/29/2019 1:44 PM us Don Espinoza MD GENERAL IMAGING Final Res ult * PATHOLOGY (01/19/2019) 01/19/2019 us Documents Scanned SCANNING Final Result * VENIPUNC ARM DRAW (01/17/2019) us Don Espinoza MD PROCEDURES Final Res ult * VENIPUNC ARM DRAW (12/20/2018) us Don Espinoza MD PROCEDURES Final Res ult * CT (10/20/2018) Anatomical Region Laterality Modality Other us Documents Scanned SCANNING Edited Result - Final * IMAGE STUDY (10/18/2018) Anatomical Region Laterality Modality Other us Documents Scanned SCANNING Edited Result - Final * XR RIBS LT+PA CHEST (09/09/2018 1:44 PM MECHANICAL SERVICE REPRESENTATIVE) Anatomical Region Laterality Modality Chest Radiographic Celeste ging 09/09/2018 1:44 PM MECHANICAL SERVICE REPRESENTATIVE Narrative 09/09/2018 12:00 AM MECHANICAL SERVICE REPRESENTATIVE [facility] ADMIT/SERVICE DATE: 09/09/18 ACCT: [id number] DISCHARGE DATE: : 1955 SEX: F ORD SITE: [facility] PT TYPE: REG CLI ORDERING MD: DON ESPINOZA MD STUDY DATE REPORT # ORDER # EXT ORDER ID 09/09/18 [id number] PROC CODE: [id number] PROCEDURE DESCRIPTION: XR RIBS W CXR 3 VIEW LT IMAGING STUDIES: XR RIBS W CXR 3 VIEW LT EXAM DATE/TIME: 09/09/2018 12:51 PM COMPARISON STUDIES: 09/30/2011 CLINICAL HISTORY: OTHER - FALL, LEFT SIDED CHEST WALL PAIN . . FINDINGS AND IMPRESSION: CHEST: 1. THE CARDIOMEDIASTINAL SILHOUETTE IS NOT ENLARGED. . 2. THE LUNGS ARE WELL EXPANDED AND CLEAR. 3. NO PLEURAL EFFUSION OR PNEUMOTHORAX.. 4. MILD DEXTROCURVATURE OF THE SPINE LEFT RIB CAGE: 1. NO CONCLUSIVE EVIDENCE OF AN ACUTE NONDISPLACED RIB FRACTURE LINE. . ELECTRONICALLY SIGNED BY JARRETT DEE MD ON 09/09/2018 1:46 PM Procedure Note Christopher Tomas MD - 09/13/2018 [facility] ADMIT/SERVICE DATE:09/09/18 ACCT: [id number] DISCHARGE DATE: : 1955 SEX: F ORD SITE: [facility] PT TYPE: REG CLI ORDERING MD:DON ESPINOZA MD STUDY DATE REPORT # ORDER # EXT ORDER ID 09/09/18 [id number] PROC CODE: [id number] PROCEDURE DESCRIPTION: XR RIBS W CXR 3 VIEW LT IMAGING STUDIES: XR RIBS W CXR 3 VIEW LT EXAM DATE/TIME: 09/09/2018 12:51 PM COMPARISON STUDIES: 09/30/2011 CLINICAL HISTORY: OTHER - FALL, LEFT SIDED CHEST WALL PAIN . . FINDINGS AND IMPRESSION: CHEST: 1. THE CARDIOMEDIASTINAL SILHOUETTE IS NOT ENLARGED. . 2. THE LUNGS ARE WELL EXPANDED AND CLEAR. 3. NO PLEURAL EFFUSION OR PNEUMOTHORAX.. 4. MILD DEXTROCURVATURE OF THE SPINE LEFT RIB CAGE: 1. NO CONCLUSIVE EVIDENCE OF AN ACUTE NONDISPLACED RIB FRACTURE LINE.. ELECTRONICALLY SIGNED BY JARRETT DEE MD ON 09/09/2018 1:46 PM us Don Espinoza MD GENERAL IMAGING Final Res ult * ECG (08/17/2018 4:36 PM MECHANICAL SERVICE REPRESENTATIVE) us Documents Scanned SCANNING Final Result * (ABNORMAL) [facility] WITH LIPID (06/25/2018 2:29 AM CDT) Only the most recent of2 resultswithin the time period is included. WBC 4.9 4.4 - 11.0 x10'3/uL 06/25/2018 10:59 AM CDT [facility] RBC 4.44(L) 4.50 - 5.10 x10'6/uL 06/25/2018 10:59 AM CDT [facility] HGB 14.3 12.3 - 15.3 G/DL 06/25/2018 10:59 AM T [facility] HCT 42.9 35.9 - 44.6 % 06/25/2018 10:59 AM CDT [facility] MCV 96.6(H) 80.0 - 96.0 FL 06/25/2018 10:59 AM CDT [facility] MCH 32.2(H) 25.3 - 30.9 PG 06/25/2018 10:59 AM CDT [facility] MCHC 33.3 31.0 - 34.1 G/DL 06/25/2018 10:59 AM CDT [facility] RDW 12.5 12.4 - 15.1 % 06/25/2018 10:59 AM CDT [facility] PLT 248 151 - 353 x10'3/uL 06/25/2018 10:59 AM CDT [facility] MPV 9.7 9.6 - 12.0 FL 06/25/2018 10:59 AM CDT [facility] RBC MORPHOLOGY NORMAL 06/25/2018 10:59 AM T [facility] PLT MORPH. NORMAL 06/25/2018 10:59 AM CDT [facility] WBC MORPHOLOGY NORMAL 06/25/2018 10:59 AM CDT [facility] LYMPHOCYTES % 30.6 15.8 - 45.0 % 06/25/2018 10:59 AM T [facility] NEUTROPHILS % 52.0 42.1 - 71.9 % 06/25/2018 10:59 AM T [facility] MONOCYTES % 12.7(H) 5.7 - 12.5 % 06/25/2018 10:59 AM T [facility] EOSINOPHILS 3.9 0.0 - 5.6 % 06/25/2018 10:59 AM [facility] BASOPHILS 0.6 0.0 - 1.3 % 06/25/2018 10:59 AM [facility] ABS. NEUTROPHILS TOTAL 2.53 1.40 - 6.00 x10'3/uL 06/25/2018 10:59 AM [facility] IMMATURE GRANS % 0.2 0.0 - 0.5 % 06/25/2018 10:59 AM [facility] ABS. LYMPHOCYTES 1.49 0.80 - 4.70 x10'3/uL 06/25/2018 10:59 AM [facility] GLUCOSE 105(H) 70 - 99 MG/DL 06/25/2018 3:59 PM [facility] BUN 14 7 - 18 MG/DL 06/25/2018 3:59 PM [facility] CREATININE S/P/B 0.90 0.55 - 1.02 MG/DL 06/25/2018 3:59 PM [facility] SODIUM S/P/B 141 136 - 145 MMOL/L 06/25/2018 3:59 PM [facility] POTASSIUM S/P/B 4.8 3.5 - 5.1 MMOL/L 06/25/2018 3:59 PM [facility] CHLORIDE S/P/B 105 100 - 108 MMOL/L 06/25/2018 3:59 PM [facility] CO2 27.5 21 - 32 MMOL/L 06/25/2018 3:59 PM [facility] CALCIUM S/P/B 9.0 8.5 - 10.1 MG/DL 06/25/2018 3:59 PM T [facility] BILIRUBIN TOTAL S/P/B 0.4 0.2 - 1.2 MG/DL 06/25/2018 3:59 PM [facility] TOTAL PROTEIN S/P/B 6.6 6.4 - 8.2 G/DL 06/25/2018 3:59 PM [facility] ALBUMIN S/P/B 3.8 3.4 - 5.0 G/DL 06/25/2018 3:59 PM [facility] AST 20 15 - 37 U/L 06/25/2018 3:59 PM [facility] ALT 30 14 - 55 U/L 06/25/2018 3:59 PM [facility] ALKALINE PHOSPHATASE S/P/B 105 50 - 136 U/L 06/25/2018 3:59 PM [facility] ANION GAP 13.3 8 - 20 MMOL/L 06/25/2018 3:59 PM [facility] BUN CREATININE RATIO 15.6 6 - 26 06/25/2018 3:59 PM [facility] A/G RATIO 1.4 1.0 - 2.0 RATIO 06/25/2018 3:59 PM [facility] EGFR NON-AFR. AMER. 68(L) >90 ML/MIN/1. 73 M2 06/25/2018 3:59 PM T [facility] EGFR AFR. AMER. 78(L) >90 ML/MIN/1. 73 M2 06/25/2018 3:59 PM [facility] Comment: NOTE: eGFR is not calculated for patients <18 years of age. This is an estimated GFR (CKD EPI) and should not be used for calculating drug doses. CHOLESTEROL 215(H) <200.0 MG/DL 06/25/2018 3:59 PM [facility] TRIGLYCERIDES 50 <150 MG/DL 06/25/2018 3:59 PM [facility] HDL 73 >40.0 MG/DL 06/25/2018 3:59 PM [facility] LDL (CALCULATED) 132(H) <100 MG/DL 06/25/2018 3:59 PM [facility] NON HDL CHOLESTEROL 142(H) <130 MG/DL 06/25/2018 3:59 PM [facility] CHOL/HDL RATIO 2.9 0.0 - 4.5 06/25/2018 3:59 PM [facility] VLDL CALCULATION 10 5 - 55 MG/DL 06/25/2018 3:59 PM [facility] LIPID INTERPRETATION 06/25/2018 3:59 PM [facility] Comment: [facility] CONCENSUS REPORT RECOMMENDATIONS: ADULT CHILD LOW RISK: CHOLESTEROL <200 <170 TRIGLYCERIDE <150 --- HDL >=60 --- LDL <100 <110 BORDERLINE: CHOLESTEROL 200-239 170-199 TRIGLYCERIDE 150-199 --- HDL 40-59 --- LDL 100-159 110-129 HIGH RISK: CHOLESTEROL >=240 >=200 TRIGLYCERIDE >=200 --- HDL <40 --- LDL >=160 >=130 TSH 1.790 0.358 - 3.74 uIU/ML 06/25/2018 3:59 PM [facility] Comment: HIGH DOSES OF BIOTIN MAY INTERFERE WITH THIS TEST RESULT. CORRELATION TO CLINICAL HISTORY AND PRESENTATION RECOMMENDED. OTHER (type in comments) 06/25/2018 2:29 AM CDT 06/25/2018 2:30 AM CDT Comment:WHOLE BLOOD SAMPLE ~ ~ACELLULAR BLOOD (SERUM OR PLASMA) SPECIMEN Generic Conversion Md [facility] Final R esult Performing Organization Address [facility] Co de Phone Number [facility] [address] [place] [address], [place] [phone] * HEMOGLOBIN AND HEMATOCRIT (04/16/2017 9:55 AM CDT) HGB 14.0 12.3 - 15.3 G/DL 04/16/2017 10:08 AM CDT [facility] HCT 41.4 35.9 - 44.6 % 04/16/2017 10:08 AM CDT [facility] 04/16/2017 9:55 AM CDT 04/16/2017 9:56 AM CDT us Generic Conversion Md [facility] Final R esult Performing Organization Address [facility] Co de Phone Number [facility] [address] [place] [address], [place] [phone] * NM HEPATOBILIARY SCAN W/GB EJECTION FRACTION (01/17/2016 1:24 PM CDT) Anatomical Region Laterality Modality Abdomen Nuclear Medicine 01/17/2016 1:24 PM CDT 01/17/2016 1:24 PM CDT Narrative 01/17/2016 1:29 PM CDT [facility] ADMIT/SERVICE DATE: 01/17/16 ACCT: [id number] DISCHARGE DATE: : 1955 SEX: F ORD SITE: [facility] PT TYPE: REG CLI ORDERING MD: MADI YANEZ MD STUDY DATE REPORT # ORDER # EXT ORDER ID 01/17/16 [id number] PROC CODE: [id number] PROCEDURE DESCRIPTION: NM HEPATOBILIARY DUCTS W PHARM IMAGING STUDIES: NM HEPATOBILIARY DUCTS W PHARM DATE: 01/17/2016 8:55 AM INDICATION: PAIN - NAUSEA RUQ PAIN . COMPARISON: NO PRIOR STUDIES FOR COMPARISON.. 6 MCI TECHNETIUM 99M CHOLETEC, 1.6 UG CCK. IMPRESSION: 1. NORMAL UPTAKE OF RADIONUCLIDE BY THE LIVER WITH EXCRETION INTO THE BILIARY DUCTS AND DUODENUM. ACTIVITY IS FIRST SEEN WITH THE GALLBLADDER BY THE 20 MINUTES IMAGE. 2. GALLBLADDER EJECTION FRACTION MEASURES 91. 3. UNREMARKABLE EXAMINATION. ELECTRONICALLY SIGNED BY LEE GARCIA MD Procedure Note , Generic Conversion, - 06/30/2018 [facility] ADMIT/SERVICE DATE:01/17/16 ACCT: [id number] DISCHARGE DATE: : 1955 SEX: F ORD SITE: [facility] PT TYPE: REG CLI ORDERING MD: VALERIANO YANEZ MD STUDY DATE REPORT # ORDER # EXT ORDER ID 01/17/16 [id number] PROC CODE: [id number] PROCEDURE DESCRIPTION: NM HEPATOBILIARY DUCTS W PHARM IMAGING STUDIES: NM HEPATOBILIARY DUCTS W PHARM DATE: 01/17/2016 8:55 AM INDICATION: PAIN - NAUSEA RUQ PAIN . COMPARISON: NO PRIOR STUDIES FOR COMPARISON.. 6 MCI TECHNETIUM 99M CHOLETEC, 1.6 UG CCK. IMPRESSION: 1. NORMAL UPTAKE OF RADIONUCLIDE BY THE LIVER WITH EXCRETION INTO THEBILIARY DUCTS AND DUODENUM. ACTIVITY IS FIRST SEEN WITH THE GALLBLADDER BY THE 20 MINUTES IMAGE. 2. GALLBLADDER EJECTION FRACTION MEASURES 91. 3. UNREMARKABLE EXAMINATION. ELECTRONICALLY SIGNED BY LEE GARCIA MD Madi Yanez MD NUC MED Final Result * US ABD LIMITED (01/17/2016 1:22 PM CDT) Anatomical Region Laterality Modality Abdomen Ultrasound 01/17/2016 1:22 PM CDT 01/17/2016 1:22 PM CDT Narrative 01/17/2016 1:29 PM CDT [facility] ADMIT/SERVICE DATE: 01/17/16 ACCT: [id number] DISCHARGE DATE: : 1955 SEX: F ORD SITE: [facility] PT TYPE: REG CLI ORDERING MD: MADI YANEZ MD STUDY DATE REPORT # ORDER # EXT ORDER ID 01/17/16 [id number] PROC CODE: [id number] PROCEDURE DESCRIPTION: US ABDOMEN LIMITED RUQ IMAGING STUDIES:US ABDOMEN LIMITED RUQ DATE: 01/17/2016 9 :05 AM INDICATION: PAIN - . COMPARISON: CT ABDOMEN PELVIS 05/19/2010. TECHNIQUE: EXAMINATION PERFORMED ULTRASONOGRAPHY USING GRAYSCALE WITH COLOR FLOW AND SPECTRAL DOPPLER. SELECTED IMAGES SUBMITTED FOR INTERPRETATION. WORKSHEET COMPLETED. IMPRESSION: NO EVIDENCE OF GALLSTONES, GALLBLADDER WALL THICKENING OR PERICHOLECYSTIC FLUID. THE COMMON DUCT DIAMETER MEASURES 4.4 MM. NO INTRAHEPATIC DUCTAL DILATATION OR FOCAL HEPATIC MASS. NORMAL DIRECTIONAL HEPATIC AND PORTAL VENOUS FLOW.. SMALL RIGHT RENAL CYSTS MEASURING APPROXIMATELY 33 X 29 X 29 MM AND 15 X 12 X 12 MM. NO HYDRONEPHROSIS. THE KIDNEY MEASURES 112 X 53 X 56 MM. PANCREAS IS OBSCURED BY BOWEL GAS AND NOT VISUALIZED.. ELECTRONICALLY SIGNED BY LEE GARCIA MD Procedure Note , Generic Conversion, - 07/01/2018 [facility] ADMIT/SERVICE DATE:01/17/16 ACCT: [id number] DISCHARGE DATE: : 1955 SEX: F ORD SITE: [facility] PT TYPE: REG CLI ORDERING MD: VALERIANO YANEZ MD STUDY DATE REPORT # ORDER # EXT ORDER ID 01/17/16 [id number] PROC CODE: [id number] PROCEDURE DESCRIPTION: US ABDOMEN LIMITED RUQ IMAGING STUDIES:US ABDOMEN LIMITED RUQDATE: 01/17/2016 9 :05 AM INDICATION: PAIN - . COMPARISON: CT ABDOMEN PELVIS 05/19/2010. TECHNIQUE: EXAMINATION PERFORMED ULTRASONOGRAPHY USING GRAYSCALE WITHCOLOR FLOW AND SPECTRAL DOPPLER. SELECTED IMAGES SUBMITTED FOR INTERPRETATION. WORKSHEETCOMPLETED. IMPRESSION: NO EVIDENCE OF GALLSTONES, GALLBLADDER WALL THICKENING OR PERICHOLECYSTICFLUID. THE COMMON DUCT DIAMETER MEASURES 4.4 MM. NO INTRAHEPATIC DUCTAL DILATATION OR FOCAL HEPATIC MASS. NORMALDIRECTIONAL HEPATIC AND PORTAL VENOUS FLOW.. SMALL RIGHT RENAL CYSTS MEASURING APPROXIMATELY 33 X 29 X 29 MM AND 15 X12 X 12 MM. NO HYDRONEPHROSIS. THE KIDNEY MEASURES 112 X 53 X 56 MM. PANCREAS IS OBSCURED BY BOWEL GAS AND NOT VISUALIZED.. ELECTRONICALLY SIGNED BY LEE GARCIA MD us Madi Yanez MD ULTRASOUND Final Result * COLONOSCOPY/EGD (01/10/2015 12:00 AM CDT) 01/10/2015 us Documents Scanned SCANNING Final Result [facility] * PRV ONLY-RESTING TWELVE LEAD EKG (01/08/2015 1:47 PM CDT) 01/08/2015 1:47 PM CDT 01/08/2015 1:47 PM CDT Narrative [facility] TO EPIC CONVERSION - 01/08/2015 1:49 PM CDT [facility] MD: MADI YANEZ MD ACCT: [id number] ADMIT/SERVICE DATE: 01/04/15 DISCHARGE DATE: : 1955 PT TYPE: REG CLI SEX: F ORD SITE: [facility] TEST DATE: 2015-01-04 PAT NAME: [facility] DEPARTMENT: CARD 85 ROOM: GENDER: FEMALE FUNERAL PRE ARRANGEMENT SPECIALIST: : 1955 REQUESTED BY: MADI YANEZ ORDER NUMBER: [id number] READING MD: JOSÉ MIGUEL GALLAGHER MEASUREMENTS INTERVALS AXIS RATE: 64 P: 45 WI: 127 QRS: 12 QRSD: 97 T: 28 QT: 408 QTC: 422 INTERPRETIVE STATEMENTS SINUS RHYTHM NO PREVIOUS ECG AVAILABLE FOR COMPARISON ELECTRONICALLY SIGNED BY JOSÉ MIGUEL GALLAGHER AT 01-08-15 13:47:20 CDT Procedure Note Christopher Tomas MD - 07/01/2018 [facility] MD: MADI YANEZ MD ACCT: [id number] ADMIT/SERVICE DATE: 01/04/15 DISCHARGE DATE: : 1955 PT TYPE: REG CLI SEX: F ORD SITE: [facility] TEST DATE: 2015-01-04 PAT NAME: [facility] DEPARTMENT: CARD 85 ROOM: GENDER: FEMALE FUNERAL PRE ARRANGEMENT SPECIALIST: : 1955 REQUESTED BY: MADI YANEZ ORDER NUMBER: [id number] READING MD: JOSÉ MIGUEL GALLAGHER MEASUREMENTS INTERVALS AXIS RATE: 64 P: 45 WI: 127 QRS: 12 QRSD: 97 T: 28 QT: 408 QTC: 422 INTERPRETIVE STATEMENTS SINUS RHYTHM NO PREVIOUS ECG AVAILABLE FOR COMPARISON ELECTRONICALLY SIGNED BY JOSÉ MIGUEL GALLAGHER AT 01-08-15 13:47:20 CDT us Generic Conversion Md [facility] Final R esult [facility] TO EPIC CONVERSION * MG DIAGNOSTIC LT DIGI (07/17/2014 11:01 AM MECHANICAL SERVICE REPRESENTATIVE) Only the most recent of2 resultswithin the time period is included. Anatomical Region Laterality Modality Breast Left Mammography 07/17/2014 11:0 1 AM MECHANICAL SERVICE REPRESENTATIVE 07/17/2014 11:01 AM MECHANICAL SERVICE REPRESENTATIVE Narrative 07/17/2014 12:28 PM MECHANICAL SERVICE REPRESENTATIVE NATHANRACHANA NANO Ordering MD: PRASAD ALFARO MD Acct: [id number] Admit/Service Date: 07/17/14 Discharge Date: : 1955 Pt Type: REG CLI Sex: F Ord Site: [facility] Study Date Report # Procedure Code Procedure 07/17/14 [id number] MG Diagnostic Mammo Digital Lt ExtOrderID [id number] Attending Physician: Prasad Alfaro M.D. Consulting Physician: Medical Imaging [phone] IND: BREAST LUMP EXAM DATE: 07/17/2014 ORD PHY: Prasad Alfaro EXAM ANTHONY: MG DIAGNOSTIC MAMMO DIGITAL LT MEDICAL IMAGING REPORT Chart Document DIGITAL DIAGNOSTIC LEFT MAMMOGRAM WITH ICAD: The left breast shows prominent fatty replacement. Since study on 12/21/13, again biopsy clip is seen in the upper outer quadrant. Coarse benign calcifications are again noted. There is no mass or any suspicious clustered microcalcifications. Small left axillary node is again noted. IMPRESSION: BENIGN COARSE CALCIFICATIONS WITH NO EVIDENCE FOR MALIGNANCY. RECOMMEND FOLLOW UP BILATERAL MAMMOGRAM IN NOVEMBER 2014. BIRADS 2 - BENIGN. SA MAMMOGRAM CLASSIFICATIONS: BIRADS 0 - FURTHER IMAGING REQUIRED. BIRADS 1 - NEGATIVE. BIRADS 2 - BENIGN FINDING. BIRADS 3 - PROBABLY BENIGN FINDING. BIRADS 4 - SUSPICIOUS FOR MALIGNANCY, BIOPSY RECOMMENDED. BIRADS 5 - HIGHLY SUGGESTIVE OF MALIGNANCY, BIOPSY RECOMMENDED. NEGATIVE IMAGING OF THE BREASTS SHOULD NOT PRECLUDE BIOPSY OF A CLINICALLY SUSPICIOUS LESION. *[facility] utilizes a mammogram reminder program. RT: Amisha Valdes Indication: Previous left lumpectomy in December 2013 with benign result Electronically Signed By: Scooter Clark M.D. 07/17/2014 12:26 P Scooter Clark M.D. EF:hattie A A cc: Prasad Alfaro M.D. Procedure Note Christopher Tomas MD - 06/30/2018 [facility] Ordering MD: PRASAD ALFARO MD Acct: [id number] Admit/Service Date: 07/17/14 Discharge Date: : 1955 Pt Type: REG CLI Sex: F Ord Site: [facility] Study Date Report # Procedure Code Procedure 07/17/14 [id number] [id number] MG Diagnostic Mammo Digital Lt ExtOrderID [id number] Attending Physician: Prasad Alfaro M.D. Consulting Physician: Medical Imaging [phone] IND: BREAST LUMP EXAM DATE: 07/17/2014 ORD PHY: Prasad Alfaro EXAM ANTHONY: MG DIAGNOSTIC MAMMO DIGITALLT MEDICAL IMAGING REPORT Chart Document DIGITAL DIAGNOSTIC LEFT MAMMOGRAM WITH ICAD: The left breast shows prominent fatty replacement. Since study on12/21/13, again biopsy clip is seen in the upper outer quadrant. Coarse benign calcifications are again noted. There is no mass or any suspicious clustered microcalcifications. Small left axillary node is again noted. IMPRESSION: BENIGN COARSE CALCIFICATIONS WITH NO EVIDENCE FOR MALIGNANCY. RECOMMEND FOLLOW UP BILATERAL MAMMOGRAM IN NOVEMBER 2014. BIRADS 2 - BENIGN. SA MAMMOGRAM CLASSIFICATIONS: BIRADS 0 - FURTHER IMAGING REQUIRED. BIRADS 1 - NEGATIVE. BIRADS 2 - BENIGN FINDING. BIRADS 3 - PROBABLY BENIGN FINDING. BIRADS 4 - SUSPICIOUS FOR MALIGNANCY, BIOPSY RECOMMENDED. BIRADS 5 - HIGHLY SUGGESTIVE OF MALIGNANCY, BIOPSY RECOMMENDED. NEGATIVE IMAGING OF THE BREASTS SHOULD NOT PRECLUDE BIOPSY OF ACLINICALLY SUSPICIOUS LESION. *[facility] utilizes a mammogram reminder program. RT: Amisha Valdes Indication: Previous left lumpectomy in December 2013 with benign result Electronically Signed By: Scooter Clark M.D. 07/17/201412:26 P Scooter Clark M.D. EF:hattie A A cc: Prasad Alfaro M.D. us Prasad Alfaro MD MAMMO Final Result * US GD BREAST BX LT (12/21/2013 1:43 PM CDT) Anatomical Region Laterality Modality Breast Ultrasound 12/21/2013 1:43 PM CDT 12/21/2013 1:43 PM CDT Narrative 12/21/2013 4:48 PM [facility]T [facility] Order[facility] MD: PRASAD ALFARO MD Acct: [id number] Admit/Service Date: 12/21/13 Discharge Date: : 1955 Pt Type: REG CLI Sex: F Ord Site: [facility] [place] Study Date Report # Procedure Code Procedure 12/21/13 [id number] US Biopsy Brst 1s Lsn Gd Vc Lt ExtOrderID [id number] Attending Physician: Prasad Alfaro M.D. Consulting Physician: Medical Imaging [phone] IND: MASS LT BREAST EXAM DATE: 12/21/2013 ORD PHY: Prasad Alfaro EXAM ANTHONY: US BIOPSY BRST 1S LSN GD VC LT Chart Document MEDICAL IMAGING REPORT ULTRASOUND GUIDED LEFT BREAST BIOPSY: Ultrasound guidance was provided for left breast biopsy performed by Prasad Alfaro MD. A radiologist was not present for this procedure. Indications: Left breast mass. Electronically Signed By: Gissel Rich M.D. 12/21/2013 04:46 P Gissel Rich M.D. TD:ms P P cc: Prasad Alfaro M.D. Procedure Note Christopher Tomas MD - 06/30/2018 [facility] Ordering MD: PRASAD ALFARO MD Acct: [id number] Admit/Service Date: 12/21/13 Discharge Date: : 1955 Pt Type: REG CLI Sex: F Ord Site: [facility] Study Date Report # Procedure Code Procedure 12/21/13 [id number] US Biopsy Brst 1s Lsn Gd Vc Lt ExtOrderID [id number] Attending Physician: Prasad Alfaro M.D. Consulting Physician: Medical Imaging [phone] IND: MASS LT BREAST EXAM DATE: 12/21/2013 ORD PHY: Prasad Alfaro EXAM ANTHONY: US BIOPSY BRST 1S LSN GD VCLT Chart Document MEDICAL IMAGING REPORT ULTRASOUND GUIDED LEFT BREAST BIOPSY: Ultrasound guidance was provided for left breast biopsy performed by Prasad Alfaro MD. A radiologist was not present for this procedure. Indications: Left breast mass. Electronically Signed By: Gissel Rich M.D. 12/21/201304:46 P Gissel Rich M.D. TD:ms P P cc: Prasad Alfaro M.D. us Prasad Alfaro MD ULTRASOUND Final Result * TISSUE EXAM BY PATHOLOGIST (12/21/2013 12:00 AM CDT) COPATH REPORT SURG - Surgical Pathology Report Patient Name: [facility]. Rec. #:[id number] : 1955 (Age: 58) Gender: F Physician(s): Prasad Alfaro Location: [facility] Room Number: Billing #: [id number] Copy To: Collected: 12/21/2013 Received: 12/21/2013 Reported: 12/22/2013 Specimen(s) Mammotome Breast Biopsy, left 1o'clock position Final Pathologic Diagnosis LEFT BREAST LUMP (1 O'CLOCK POSITION), MAMMOTOME: FIBROFATTY BREAST TISSUE WITH EXTENSIVE FAT NECROSIS AND DYSTROPHIC CALCIFICATION. NO ATYPICAL HYPERPLASIA OR MALIGNANCY IDENTIFIED. Comment Cytokeratin immunostain reveals no evidence of malignancy within the fibroinflammatory nodules or intervening breast tissue. These findings could be seen in response to prior trauma or surgery. Per imaging report, there are dystrophic calcifications in the upper outer left breast with an adjacent 11 mm heterogenous opacity and a biopsy marker. Clinical and imaging followup is recommended to assure that the area has been adequately sampled. Results were discussed with Dr. Alfaro 12/22/2013 at 13:25. [facility]/12/22/2013 Electronically Signed Out ByRebecca Vu MD Microscopic Description Six slides examined along with CK7 immunostain on both blocks. Clinical History Left breast lump Gross Description Received in formalin labeled with patient's identification and Lt breast 1 o'clock position, nine samples are nine buoyant cores, bright yellow, fatty and pinkish, fibrous tissue. Four cores are embedded in block 1 and five cores in block 2 . Block 2 includes the shortest core which is approximately 0.5 cm. The remaining cores range up to 2.4 cm. /HL [facility]//12/22/2013 Billing Fee Code(s): 50843-OPT, 41278-COV [facility] TO EPIC CONVERSION 12/21/2013 12/21/2013 Narrative [facility] TO EPIC CONVERSION - 12/21/2013 10:40 AM CDT Result Communication: No patient communication needed at this time us Prasad Alfaro MD PATHOLOGY/CYTOLOGY ORDERABLES Final Result [facility] TO EPIC CONVERSION * (ABNORMAL) URINALYSIS WI REFLEX TO CULTURE (07/19/2013 3:06 PM MECHANICAL SERVICE REPRESENTATIVE) Only the most recent of2 resultswithin the time period is included. COLOR (U) YELLOW [facility] T O EPIC CONVERSION TRANSPARENCY HAZY [facility] P TO EPIC CONVERSION SPECIFIC GRAVITY (U) 1.015 1.000 - 1.03 [facility] TO EPIC CONVERSION U PH 6.0 5 - 9 [facility] T O EPIC CONVERSION LEUKOCYTES (U) 1+(A) NEG [facility] OUP TO EPIC CONVERSION NITRITES NEG NEG [facility] T O EPIC CONVERSION PROTEIN (U) NEG NEG [facility] TO EPIC CONVERSION URINE GLUCOSE NORMAL NORM [facility] UP TO EPIC CONVERSION KETONES MG/DL (U) NEG NEG [facility] TO EPIC CONVERSION BILIRUBIN (U) NEG NEG [facility] UP TO EPIC CONVERSION BLOOD (U) NEG NEG [facility] T O EPIC CONVERSION WBC/HPF 5-10 0 - 5 /HPF [facility] TO EPIC CONVERSION RBC/HPF NONE SEEN 0 - 5 /HPF [facility] TO EPIC CONVERSION EPI/HPF FEW /HPF [facility] T O EPIC CONVERSION BACTERIA (U) MODERATE /HPF [facility] P TO EPIC CONVERSION URINE RENTERIA UA REFLEXED TO CULTURE, RESULTS TO FOLLOW. [facility] TO EPIC CONVERSION 07/19/2013 3:06 PM MECHANICAL SERVICE REPRESENTATIVE 07/19/2013 3:06 PM MECHANICAL SERVICE REPRESENTATIVE Narrative [facility] TO EPIC CONVERSION - 07/19/2013 4:33 PM MECHANICAL SERVICE REPRESENTATIVE Result Communication: No patient communication needed at this time us Abner Graham MD URINE ORDERABLES Final Result [facility] TO EPIC CONVERSION * MAGNESIUM (11/04/2012 6:00 PM MECHANICAL SERVICE REPRESENTATIVE) MAGNESIUM 2.1 1.6 - 2.3 MG/DL [facility] TO EPIC CONVERSION 11/04/2012 6:00 PM MECHANICAL SERVICE REPRESENTATIVE 11/04/2012 6:00 PM MECHANICAL SERVICE REPRESENTATIVE Narrative [facility] TO EPIC CONVERSION - 11/04/2012 7:54 PM MECHANICAL SERVICE REPRESENTATIVE Result Communication: No patient communication needed at this time us [facility] Final Result [facility] TO EPIC CONVERSION * Colonoscopy ( MECHANICAL SERVICE REPRESENTATIVE) Narrative [facility] TO EPIC CONVERSION - MECHANICAL SERVICE REPRESENTATIVE Documented hx of procedure Procedure Note Christopher Tomas, - 07/11/2018 Documented hx of procedure Generic Conversion Md [facility] PROCEDURE ORDERABLES Final Result [facility] TO EPIC CONVERSION Visit Diagnoses Diagnosis Start Date Other screening mammogram 08/16/2010 Urinary tract infection Urinary tract infection, site not specified 02/01/2011 Urinary tract infection Urinary tract infection, site not specified 02/12/2011 Urinary tract infection Urinary tract infection, site not specified 02/20/2011 Other malaise and fatigue 02/25/2011 Procedure not carried out for other reasons 03/04/2011 Hyperpotassemia 05/02/2011 Other malaise and fatigue 09/30/2011 Other screening mammogram 11/13/2011 Mastodynia 04/16/2012 Routine general medical examination at a health care facility 11/04/2012 Sebaceous cyst 11/08/2012 Other screening mammogram 11/12/2012 Urinary frequency 06/15/2013 Urinary frequency 06/29/2013 Urinary frequency 07/04/2013 Urinary frequency 07/07/2013 Urinary tract infection Urinary tract infection, site not specified 07/19/2013 Urinary frequency 09/23/2013 Urinary tract infection Urinary tract infection, site not specified 10/14/2013 Other screening mammogram 12/02/2013 Abnormal mammogram Abnormal mammogram, unspecified 12/08/2013 Lump or mass in breast 12/21/2013 Sprain of ankle Sprain of ankle, unspecified site 04/22/2014 Lump or mass in breast 07/17/2014 Other screening mammogram 12/15/2014 Pre-operative examination Preoperative examination, unspecified 01/04/2015 Benign neoplasm of colon 01/10/2015 Other dyspnea and respiratory abnormality 05/29/2015 Encounter for screening mammogram for malignant neoplasm of breast Other screening mammogram 01/04/2016 Right upper quadrant pain Abdominal pain, right upper quadrant 01/17/2016 Ulcer of esophagus without bleeding 01/23/2016 Chronic gastritis without bleeding Atrophic gastritis without mention of hemorrhage 07/08/2016 Encounter for screening mammogram for malignant neoplasm of breast Other screening mammogram 01/09/2017 Encounter for preprocedural cardiovascular examination Pre-operative cardiovascular examination 04/16/2017 Localized swelling, mass and lump, unspecified 06/05/2017 Pain of right foot Pain in limb 07/01/2017 Encounter for screening mammogram for malignant neoplasm of breast Other screening mammogram 05/17/2018 Other chest pain 09/09/2018 Fall at home, initial encounter 09/09/2018 Left-sided chest wall pain Painful respiration 09/09/2018 Gastroesophageal reflux disease with esophagitis 09/09/2018 Gastric polyps Benign neoplasm of stomach 09/09/2018 Hx of colonic polyps Personal history of colonic polyps 09/09/2018 Pharyngitis, unspecified etiology 09/21/2018 Upper respiratory tract infection, unspecified type 09/21/2018 Viral URI with cough Acute upper respiratory infections of unspecified site 09/24/2018 Other displaced fracture of upper end of right humerus, initial encounter for closed fracture 10/18/2018 Other displaced fracture of lower end of right humerus, initial encounter for closed fracture 10/20/2018 Gastroesophageal reflux disease, esophagitis presence not specified 12/10/2018 Gastro-esophageal reflux disease without esophagitis Esophageal reflux 12/13/2018 Encounter for screening for diseases of the blood and blood-forming organs and certain disorders involving the immune mechanism 12/20/2018 Closed fracture of proximal end of right humerus, unspecified fracture morphology, initial encounter 12/20/2018 Gastroesophageal reflux disease with esophagitis 12/20/2018 Nodule, subcutaneous Localized superficial swelling, mass, or lump 12/20/2018 Mixed hyperlipidemia 12/20/2018 Screening for deficiency anemia Screening for other and unspecified deficiency anemia 12/20/2018 BMI 27.0-27.9,adult Body Mass Index 27.0-27.9, adult 12/20/2018 Medication management Encounter for long-term (current) use of other medications 12/20/2018 Mixed hyperlipidemia 01/17/2019 Tick bite, initial encounter 01/17/2019 Mixed hyperlipidemia 01/17/2019 Medication management Encounter for long-term (current) use of other medications 01/17/2019 Screening for osteoporosis Special screening for osteoporosis 02/03/2019 Asymptomatic menopausal state Asymptomatic postmenopausal status (age-related) (natural) 02/03/2019 Asymptomatic menopausal state Asymptomatic postmenopausal status (age-related) (natural) 02/14/2019 Screening for osteoporosis Special screening for osteoporosis 02/14/2019 Age-related osteoporosis without current pathological fracture Senile osteoporosis 02/21/2019 Age-related osteoporosis without current pathological fracture Senile osteoporosis 02/24/2019 Left flank pain Abdominal pain, unspecified site 06/08/2019 Medication management Encounter for long-term (current) use of other medications 06/08/2019 Left flank pain Abdominal pain, unspecified site 06/08/2019 Pyuria Other nonspecific finding on examination of urine 06/08/2019 Medication management Encounter for long-term (current) use of other medications 06/08/2019 Gastroesophageal reflux disease with esophagitis 06/21/2019 Mixed hyperlipidemia 06/21/2019 Left leg pain Pain in limb 06/21/2019 Abnormal ankle brachial index (RONY) 06/21/2019 Gastric polyps Benign neoplasm of stomach 06/21/2019 Age-related osteoporosis without current pathological fracture Senile osteoporosis 06/21/2019 Osteopenia of lumbar spine 06/21/2019 Need for immunization against influenza Need for prophylactic vaccination and inoculation against influenza 06/21/2019 BMI 27.0-27.9,adult Body Mass Index 27.0-27.9, adult 06/21/2019 Medication management Encounter for long-term (current) use of other medications 06/21/2019 Fall (on)(from) sidewalk curb, initial encounter 06/29/2019 Left hand pain Pain in limb 06/29/2019 Left wrist pain Pain in joint, forearm 06/29/2019 Acute pain of left knee 06/29/2019 Fall (on)(from) sidewalk curb, initial encounter 06/29/2019 Acute pain of left knee 06/29/2019 Left wrist pain Pain in joint, forearm 06/29/2019 Left hand pain Pain in limb 06/29/2019 Need for prophylactic vaccination against Streptococcus pneumoniae (pneumococcus) Need for prophylactic vaccination against streptococcus pneumoniae (pneumococcus) 06/29/2019 Osteopenia Disorder of bone and cartilage, unspecified 08/02/2019 Osteoporosis Osteoporosis, unspecified 08/02/2019 Gastroesophageal reflux disease with esophagitis 08/30/2019 Gastroesophageal reflux disease with esophagitis 09/06/2019 Medication management Encounter for long-term (current) use of other medications 06/27/2020 Age-related osteoporosis without current pathological fracture Senile osteoporosis 06/27/2020 Dysphagia, unspecified type 06/27/2020 Piriformis syndrome of right side Lesion of sciatic nerve 06/27/2020 Chronic hip pain, bilateral 06/27/2020 Gastroesophageal reflux disease with esophagitis without hemorrhage 06/27/2020 Mixed hyperlipidemia 06/27/2020 Age-related osteoporosis without current pathological fracture Senile osteoporosis 06/27/2020 Hiatal hernia Diaphragmatic hernia without mention of obstruction or gangrene 06/27/2020 Need for immunization against influenza Need for prophylactic vaccination and inoculation against influenza 06/27/2020 BMI 26.0-26.9,adult Body Mass Index 26.0-26.9, adult 06/27/2020 Medication management Encounter for long-term (current) use of other medications 06/27/2020 Chronic hip pain, bilateral 07/17/2020 Gastric polyps Benign neoplasm of stomach 12/24/2020 Hx of colonic polyps Personal history of colonic polyps 12/24/2020 Hematochezia Blood in stool 12/24/2020 Mucus in stool Nonspecific abnormal finding in stool contents 12/24/2020 Intertrigo Other specified erythematous condition 12/24/2020 Osteoporosis Osteoporosis, unspecified 12/25/2020 Osteopenia of lumbar spine 01/01/2021 Age-related osteoporosis without current pathological fracture Senile osteoporosis 01/01/2021 Subcutaneous nodule of neck 03/06/2021 Laceration of right ring finger without foreign body with damage to nail, initial encounter 03/06/2021 History of colon polyps Personal history of colonic polyps 04/12/2021 Screening for colon cancer Special screening for malignant neoplasms, colon 04/12/2021 Gastroesophageal reflux disease, unspecified whether esophagitis present 04/12/2021 History of colon polyps Personal history of colonic polyps 04/16/2021 Screening for colon cancer Special screening for malignant neoplasms, colon 04/16/2021 Gastroesophageal reflux disease, unspecified whether esophagitis present 04/16/2021 Gastroesophageal reflux disease, unspecified whether esophagitis present 04/24/2021 Oropharyngeal dysphagia Dysphagia, oropharyngeal phase 04/26/2021 History of colon polyps Personal history of colonic polyps 04/26/2021 Screening for colon cancer Special screening for malignant neoplasms, colon 04/26/2021 Gastroesophageal reflux disease, unspecified whether esophagitis present 04/26/2021 History of colon polyps Personal history of colonic polyps 04/26/2021 Screening for colon cancer Special screening for malignant neoplasms, colon 04/26/2021 Gastroesophageal reflux disease, unspecified whether esophagitis present 04/26/2021 Oropharyngeal dysphagia Dysphagia, oropharyngeal phase 04/30/2021 Acute recurrent maxillary sinusitis Acute maxillary sinusitis 05/15/2021 Dysphagia Dysphagia, unspecified 06/27/2021 Age-related osteoporosis without current pathological fracture Senile osteoporosis 07/12/2021 Medication management Encounter for long-term (current) use of other medications 07/12/2021 Gastroesophageal reflux disease with esophagitis without hemorrhage 07/12/2021 Dysphagia, unspecified type 07/12/2021 Mixed hyperlipidemia 07/12/2021 Palpitations 07/12/2021 Age-related osteoporosis without current pathological fracture Senile osteoporosis 07/12/2021 Need for immunization against influenza Need for prophylactic vaccination and inoculation against influenza 07/12/2021 Need for prophylactic vaccination against Streptococcus pneumoniae (pneumococcus) Need for prophylactic vaccination against streptococcus pneumoniae (pneumococcus) 07/12/2021 BMI 27.0-27.9,adult Body Mass Index 27.0-27.9, adult 07/12/2021 Medication management Encounter for long-term (current) use of other medications 07/12/2021 Dysphagia Dysphagia, unspecified 07/18/2021 Mixed hyperlipidemia 07/20/2021 Mixed hyperlipidemia 07/22/2021 Age-related osteoporosis without current pathological fracture Senile osteoporosis 07/22/2021 Age-related osteoporosis without current pathological fracture Senile osteoporosis 07/31/2021 Age-related osteoporosis without current pathological fracture Senile osteoporosis 08/07/2021 Hematochezia Blood in stool 09/03/2021 Hematochezia Blood in stool 09/04/2021 History of colon polyps Personal history of colonic polyps 09/04/2021 Screening for colon cancer Special screening for malignant neoplasms, colon 09/04/2021 UTI (urinary tract infection) Urinary tract infection, site not specified 09/26/2021 Dysuria 10/07/2021 Dysuria 10/07/2021 COVID 10/07/2021 Hematochezia Blood in stool 11/01/2021 Hematochezia Blood in stool 12/11/2021 Gastroesophageal reflux disease, unspecified whether esophagitis present 12/16/2021 History of esophageal stricture Personal history of other diseases of digestive system 12/16/2021 Hemorrhoids, unspecified hemorrhoid type 12/16/2021 Age-related osteoporosis without current pathological fracture Senile osteoporosis 02/06/2022 Age-related osteoporosis without current pathological fracture Senile osteoporosis 02/10/2022 Mixed hyperlipidemia 06/17/2022 Medication management Encounter for long-term (current) use of other medications 06/17/2022 Urinary frequency 07/09/2022 Encounter for mammogram to establish baseline mammogram Other screening mammogram 07/09/2022 Low back pain Lumbago 07/09/2022 Mixed hyperlipidemia 07/10/2022 Medication management Encounter for long-term (current) use of other medications 07/10/2022 Encounter to establish care Other reasons for seeking consultation 07/17/2022 Mixed hyperlipidemia 07/17/2022 Gastroesophageal reflux disease with esophagitis without hemorrhage 07/17/2022 Age-related osteoporosis without current pathological fracture Senile osteoporosis 07/17/2022 Need for camokxyjat-tkjxakm-htmltlrjg (Tdap) vaccine Need for prophylactic vaccination with combined cthubbqzkt-bqfwywm-zklbmhqyn (DTP) vaccine 07/28/2022 Cut of forearm 07/28/2022 Ureteral stone with hydronephrosis Calculus of ureter 2022 UTI (urinary tract infection) Urinary tract infection, site not specified 2022 Gastroesophageal reflux disease with esophagitis without hemorrhage 09/11/2022 Age-related osteoporosis without current pathological fracture Senile osteoporosis 09/11/2022 Suspected COVID-19 virus infection 09/11/2022 Suspected COVID-19 virus infection 09/11/2022 Acute non-recurrent frontal sinusitis 09/11/2022 Acute non-recurrent frontal sinusitis 09/17/2022 Hypercholesteremia Pure hypercholesterolemia 12/16/2022 Age-related osteoporosis without current pathological fracture Senile osteoporosis 04/13/2023 Diverticulitis Diverticulitis of colon (without mention of hemorrhage) 05/26/2023 Mixed hyperlipidemia 06/02/2023 Mixed hyperlipidemia 06/02/2023 Mixed hyperlipidemia 06/02/2023 Upper respiratory tract infection, unspecified type 06/02/2023 Claudication (CMS/HCC) Peripheral vascular disease, unspecified 06/02/2023 Age-related osteoporosis without current pathological fracture Senile osteoporosis 06/02/2023 Gastroesophageal reflux disease with esophagitis without hemorrhage 06/02/2023 Need for immunization against influenza Need for prophylactic vaccination and inoculation against influenza 07/23/2023 Age-related osteoporosis without current pathological fracture Senile osteoporosis 07/23/2023 Osteopenia of lumbar spine 07/27/2023 COVID-19 08/01/2023 Visit for screening mammogram Other screening mammogram 09/15/2023 Claudication (CMS/HCC) Peripheral vascular disease, unspecified 10/06/2023 Abnormal mammogram Abnormal mammogram, unspecified 10/23/2023 Dog bite, initial encounter 11/08/2023 Suspected COVID-19 virus infection 11/12/2023 Viral infection Unspecified viral infection, in conditions classified elsewhere and of unspecified site 11/12/2023 Dog bite, subsequent encounter 11/16/2023 Viral URI with cough Acute upper respiratory infections of unspecified site 11/20/2023 Dog bite, subsequent encounter 11/20/2023 Acute cough 11/24/2023 Upper respiratory tract infection, unspecified type 11/24/2023 Abnormality of right breast on screening mammogram 12/10/2023 Abnormal mammogram Abnormal mammogram, unspecified 12/15/2023 Abnormal mammogram Abnormal mammogram, unspecified 01/04/2024 Status post right breast biopsy Other postprocedural status 01/18/2024 Other specified disorders of breast 01/18/2024 Status post right breast biopsy Other postprocedural status 01/18/2024 Arthritis of left foot Unspecified arthropathy, ankle and foot 03/25/2024 Acute gout of left foot, unspecified cause 03/25/2024 Arthritis of left foot Unspecified arthropathy, ankle and foot 03/25/2024 Acute gout of left foot, unspecified cause 03/25/2024 Arthritis of left foot Unspecified arthropathy, ankle and foot 03/25/2024 Acute gout of left foot, unspecified cause 03/25/2024 Arthritis of left foot Unspecified arthropathy, ankle and foot 03/25/2024 Acute gout of left foot, unspecified cause 03/25/2024 Abnormality of right breast on screening mammogram 04/18/2024 Mixed hyperlipidemia 05/13/2024 Gout Gout, unspecified 05/13/2024 Gout Gout, unspecified 06/06/2024 Mixed hyperlipidemia 06/06/2024 Mixed hyperlipidemia 06/20/2024 Age-related osteoporosis without current pathological fracture Senile osteoporosis 06/20/2024 Gastroesophageal reflux disease with esophagitis without hemorrhage 06/20/2024 Need for immunization against influenza Need for prophylactic vaccination and inoculation against influenza 06/20/2024 Status post right breast biopsy Other postprocedural status 07/07/2024 Other specified disorders of breast 07/07/2024 Abnormality of right breast on screening mammogram 07/07/2024 Pain of right breast Mastodynia 07/15/2024 Prediabetes Other abnormal glucose 07/15/2024 Pain of right breast Mastodynia 07/15/2024 Prediabetes Other abnormal glucose 07/15/2024 Pain of right breast Mastodynia 07/15/2024 Prediabetes Other abnormal glucose 07/15/2024 Suspected COVID-19 virus infection 08/01/2024 Non-recurrent acute serous otitis media of both ears 08/01/2024 Bronchitis Bronchitis, not specified as acute or chronic 08/01/2024 Pain of right breast Mastodynia 08/01/2024 Hx of colonic polyps Personal history of colonic polyps 04/26/2021 Medication management Encounter for long-term (current) use of other medications 04/26/2021 Dysphagia Dysphagia, unspecified 07/18/2021 Hematochezia Blood in stool 12/11/2021 Kidney stone Calculus of kidney 08/15/2022 Care Teams Drainlayer Relationship Specialty Start [place] [address] [facility] [place] [address] PCP - General FAMILY PRACTICE 10/01/21 Zelda Johnston MD [address] [place] [address] [place] [address] Consulting Physician OBGYN 06/27/20
--- OUTSIDE RECORDS SUMMARY | 2024-11-11 08:48 | XMS_ITS | Referral Summary ---
Author Organization [address] Address [address] [place] [address] Care Team Providers Care Armored Car Guard And Driver Name Role Phone Bishop Rocha MD Primary Care Provider + Allergies Active Allergy Reactions Criticality Noted Date Comments Ceftriaxone Other (See comments) Reaction: ITCHY AND RED, Medications rosuvastatin (CRESTOR) 10 mg tablet Take 1 tablet by mouth daily 06/27/2016 Active famotidine (PEPCID) 40 mg tablet 02/20/2021 Active rik sdek-rkprpyhd-r amolenic ac 1,000 mg capsule Take 1 [...] Active Active Problems No known active problems Social History Tobacco Use Types Packs/Day Years Used Date Smoking Tobacco: Never Smokeless Tobacco: Never Personal Safety Answer Date Recorded Getting School Help Needed Not on file 11/06 Comments Unknown Sex and Gender Information Value Date Recorded Sex Assigned at Not on file Legal Sex Female 3:27 AM REGULATORY ATTORNEY Gender Identity Not on file Sexual Orientation Not on file Last Filed Vital Signs Vital Sign Reading Time Taken Comments Blood Pressure 121/64 08/23/2014 2:13 PM REGULATORY ATTORNEY Pulse 70 08/23/2014 2:13 PM REGULATORY ATTORNEY Temperature - - Respiratory Rate 17 05/28/2021 1:18 PM CDT Oxygen Saturation - - Inhaled Oxygen Concentration - - Weight 72.6 kg (160 lb) 05/28/2021 1:18 PM CDT Height 165.1 cm (5' 5 ) 05/28/2021 1:18 PM CDT Body Mass Index 26.63 05/28/2021 1:18 PM CDT Plan of Treatment Not on file Insurance MEDICARE [facility] [place] [id number] [place] [id number] Care Teams Armored Car Guard And Driver Relationship Specialty Start Date End Date Bishop Rocha MD PCP - General Internal Medicine 05/07/21
--- OUTSIDE RECORDS SUMMARY | 2024-11-11 08:48 | XMS_ITS | Encounter Summary ---
Author Organization [facility] Address [address] [place] [address] Care Team Providers Care Tire Debeader Name Role Phone Bishop Rocha MD Primary Care Provider + [phone] Callie Johnston MD Unavailable [phone] Sylvester Gallagher MD Primary Care Provider [phone] Encounter Details Date Type Department Care Team (Latest Contact Info) Description 07/13/2018 Abstract [facility] , Christopher Martines MD Social History Tobacco Use Types Packs/Day Years Used Date Smoking Tobacco: Never Assessed Comments Unknown Sex and Gender Information Value Date Recorded Sex Assigned at Female 09/21/2018 7:05 PM BUILD ENGINEER Legal Sex Female 7:34 PM CDT Gender Identity Female 09/21/2018 7:05 PM BUILD ENGINEER Sexual Orientation Not on file documented as of this encounter Plan of Treatment Upcoming Encounters Date Type Department Care Team (Late st Contact Info) Description 01/04/2025 1:00 PM CDT Appointment [facility] [address] [place] [address] Callie Johnston MD [address] [place] [address] 01/25/2109 Scan HEALTH INFO SRVCS Scanned, Documents Lab (SCAN) documented as of this encounter Visit Diagnoses Not on filedocumented in this encounter Additional Health Concerns Infection Onset Date Last Indicated Resolved Time COVID-19 Rule Out 09/11/2022 09/11/2022 09/11/2022 8:23 AM BUILD ENGINEER COVID-19 Rule Out 09/11/2022 09/11/2022 09/13/2022 6:05 PM BUILD ENGINEER COVID-19 Rule Out 08/01/2023 08/01/2023 08/01/2023 2:23 PM BUILD ENGINEER COVID-19 Confirmed 08/01/2023 08/01/2023 12:32 AM BUILD ENGINEER COVID-19 Rule Out 11/12/2023 11/12/2023 11/12/2023 8:00 AM BUILD ENGINEER COVID-19 Rule Out 08/01/2024 08/01/2024 08/01/2024 7:43 AM BUILD ENGINEER documented as of this encounter Care Teams Tire Debeader Relationship Specialty Start Date End Date Bishop Rocha MD PCP - General INTERNAL MEDICINE 09/09/18 09/30/21 [place] [address] [address] [place], [place] [id number] PCP - General FAMILY PRACTICE 10/01/21 Callie Johnston MD [address] [place] [address] [place] [address] Consulting Physician OBGYN 06/27/20 documented as of this encounter
--- OUTSIDE RECORDS SUMMARY | 2024-11-11 08:48 | XMS_ITS | Encounter Summary ---
Author Organization [facility] Address [address] [place] [address] Care Team Providers Care Development Lead Name Role Phone Bishop Rocha MD Primary Care Provider [phone] Callie Johnston MD Unavailable [phone] Sylvester Gallagher MD Primary Care Provider [phone] Reason for Referral * Injection (Routine) - Closed Specialty Diagnoses / Procedures Referred By Contac t Referred To Contact INFUSION THERAPY Diagnoses Osteoporosis Procedures INJ,DENOSUMAB,1 MG (XGEVA,PROLIA) For Prolia 60mg SQ x [address] [facility] [address] [place] [address] Phone: tel: Referral ID Status Reason Start Date Expiration Date V isits Requested Visits Authorized [id number] Closed Specialty Services 12/25/2020 01/24/2022 1 1 Encounter Details Date Type Department Care Team (Late st Contact Info) Description 12/25/[address] [facility] [address] [place] [address] Bishop Rocha MD [address] [address] Social History Tobacco Use Types [...] Sex Assigned at Female 09/21/2018 7:05 PM ROD MILL TENDER Legal Sex Female 7:34 PM CDT Gender Identity Female 09/21/2018 7:05 PM ROD MILL TENDER Sexual Orientation Not on file Occupation Industry Job Start Date Job End Date Not on file Not on file Not on file Not on file documented as of this encounter Plan of Treatment Upcoming Encounters Date Type Department Care Team (Late st Contact Info) Description 01/04/2025 1:00 PM CDT Appointment [facility] [address] [place], [place] [id number] Callie Johnston MD [address] [place] [address] 01/25/2109 Scan HEALTH INFO SRVCS Scanned, Documents Lab (SCAN) Scheduled Referrals Name Type Priority Associated Diagnoses Orde r Schedule Ambulatory referral to Infusion Therapy Referral Routine Osteoporosis Ordered: 12/25/2020 documented as of this encounter Visit Diagnoses Diagnosis Osteoporosis- Primary Osteoporosis, unspecified documented in this encounter Additional Health Concerns Infection Onset Date Last Indicated Resolved Time COVID-19 Rule Out 09/11/2022 09/11/2022 09/11/2022 8:23 AM ROD MILL TENDER COVID-19 Rule Out 09/11/2022 09/11/2022 09/13/2022 6:05 PM ROD MILL TENDER COVID-19 Rule Out 08/01/2023 08/01/2023 08/01/2023 2:23 PM ROD MILL TENDER COVID-19 Confirmed 08/01/2023 08/01/2023 12:32 AM ROD MILL TENDER COVID-19 Rule Out 11/12/2023 11/12/2023 11/12/2023 8:00 AM ROD MILL TENDER COVID-19 Rule Out 08/01/2024 08/01/2024 08/01/2024 7:43 AM ROD MILL TENDER documented as of this encounter Care Teams Development Lead Relationship Specialty Start Date End Date Bishop Rocha MD PCP - General INTERNAL MEDICINE 09/09/18 09/30/21 [place] [address] [place] [address] PCP - General FAMILY PRACTICE 10/01/21 Callie Johnston MD [address] [place] [address] [place] [id number] Consulting Physician SANAZ 06/27/20 documented as of this encounter
--- OUTSIDE RECORDS SUMMARY | 2024-11-11 08:48 | XMS_ITS | Encounter Summary ---
Author Organization [facility] Address [address] [place] [address] Care Team Providers Care Supervisor [employer]er [employer] Name Role Phone Bishop Rocha MD Primary Care Provider [phone] Callie Johnston MD Unavailable [phone] Sylvester Gallagher MD Primary Care Provider [phone] Encounter Details Date Type Department Care Team (Late st Contact Info) Description 11/24/2013 Abstract [facility] [address] [place] [address] , Generic ConversionMD Social History Tobacco Use Types Packs/Day Years Used Date Smoking Tobacco: Never Assessed Comments Unknown Sex and Gender Information Value Date Recorded Sex Assigned at Female 09/21/2018 7:05 PM CAN COVERER Legal Sex Female 7:34 PM CDT Gender Identity Female 09/21/2018 7:05 PM CAN COVERER Sexual Orientation Not on file documented as of this encounter Plan of Treatment Upcoming Encounters Date Type Department Care Team (Late st Contact Info) Description 01/04/2025 1:00 PM CDT Appointment [facility] [address] [facility], [place] [address] Callie Johnston MD [address] [place], [place] [address] 01/25/2109 Scan HEALTH INFO SRVCS Scanned, Documents Lab (SCAN) documented as of this encounter Visit Diagnoses Not on filedocumented in this encounter Additional Health Concerns Infection Onset Date Last Indicated Resolved Time COVID-19 Rule Out 09/11/2022 09/11/2022 09/11/2022 8:23 AM CAN COVERER COVID-19 Rule Out 09/11/2022 09/11/2022 09/13/2022 6:05 PM CAN COVERER COVID-19 Rule Out 08/01/2023 08/01/2023 08/01/2023 2:23 PM CAN COVERER COVID-19 Confirmed 08/01/2023 08/01/2023 12:32 AM CAN COVERER COVID-19 Rule Out 11/12/2023 11/12/2023 11/12/2023 8:00 AM CAN COVERER COVID-19 Rule Out 08/01/2024 08/01/2024 08/01/2024 7:43 AM CAN COVERER documented as of this encounter Care Teams Supervisor [employer]er Farm Relationship Specialty Start Date End Date Bishop Rocha MD PCP - General INTERNAL MEDICINE 09/09/18 09/30/21 [place] [address] [address] [place], [place] [id number] PCP - General FAMILY PRACTICE 10/01/21 Callie Johnston MD [address] [place] [address] [place] [address] Consulting Physician SANAZ 06/27/20 documented as of this encounter
--- OUTSIDE RECORDS SUMMARY | 2024-11-11 08:48 | XMS_ITS | Clinical Summary ---
Author Organization [facility]people Address [address] [place] [address] Care Team Providers Care Sql Bi Developer Name Role Phone Abner Graham MD Primary Care Provider [phone] Source Comments [facility],non-owned Affiliates and Associated Physician Practices is amultiple site organization consisting of ambulatory clinics and hospital sitesin [place], [place] and [place]. This disclosure is being madepursuant to the Care Everywhere program and may not contain all information available regarding this patient. Last updated 18.[facility] Allergies Active Allergy Reactions Criticality Noted Date [...] Date Diagnosed Date Uterovaginal prolapse, incomplete 01/07/2010 Family History Medical History Relation Name Comments Diabetes Father Elevated Lipids Father Heart Disease Father Elevated Lipids Mother Heart Disease Mother Elevated Lipids Sister Osteoporosis Sister Relation Name Status Comments Father Mother Sister Social History Tobacco Use [...] 11/21/2013 9:38 AM CDT Plan of Treatment Health Maintenance Due Date Last Done Comments BONE DENSITY TESTING 1955 COLOGUARD (AGES 45-75) - COL ON CA SCREENING 1955 COLON MONITORING 1955 COLONOSCOPY - COLON CA SCREENING 1953 CT COLONOGRAPHY - COLON CA SCREENING 1955 Colorectal Cancer Screening 1955 FIT - COLON CA SCREENING 1953 FLEX SIG - COLON CA SCREENING 1955 MAMMOGRAM 1955 MEDICARE AWV 12 MONTHS 1955 HEPATITIS C SCREENING 08/10/1971 DTAP/TDAP/TD VACCINES (1 - Tdap) 1972 PNEUMOCOCCAL VACCINE 50+ (1 of 1 - PCV) 2003 ZOSTER VACCINE (1 of 2) 2003 COVID-19 VACCINE ( - 2023-2 5 season) 2024 INFLUENZA VACCINE (#1) 2024 DEPRESSION SCREENING 09/07/2024 Respiratory Syncytial Virus (RSV) Vaccine Pt: or over 60 yrs (1 - 1-dose 75+ series) 2028 HEPATITIS B VACCINE Aged Out No longe r eligible based on patient's age to complete this topic HIB VACCINE Aged Out No longer eligi ble based on patient's age to complete this topic HPV VACCINE Aged Out No longer eligi ble based on patient's age to complete this topic MENINGOCOCCAL (Group B) VACCINE Aged Out No longer eligible based on patient's age to complete this topic MENINGOCOCCAL VACCINE Aged Out No charmaine chelsey eligible based on patient's age to complete this topic Advance Directives * Full Code (Latest Code Status on File) Date Activated Date Inactivated Comments 01/07/2010 1:56 PM 01/09/2010 12:02 AM Care Teams Sql Bi Developer Relationship Specialty Start Date End Date Abner Graham MD [address] [place] [address] PCP - General 03/28/20
--- OUTSIDE RECORDS SUMMARY | 2024-11-11 08:48 | XMS_ITS | Encounter Summary ---
Author Organization [facility] Address [address] [place] [address] Care Team Providers Care Drapery Supervisor Name Role Phone Callie Johnston MD Unavailable [phone] Sylvester Gallagher MD Primary Care Provider [phone] Encounter Details Date Type Department Care Team (Late st Contact Info) Description 02/06/2022 Therapy Plan [facility] [address] [place], [place] [id number] [place] [address] [place] [address] Social History Tobacco Use Types Packs/Day Years [...] Sex Assigned at Female 09/21/2018 7:05 PM PHYSICIAN CHIEF OF PATHOLOGY Legal Sex Female 7:34 PM CDT Gender Identity Female 09/21/2018 7:05 PM PHYSICIAN CHIEF OF PATHOLOGY Sexual Orientation Not on file Occupation Industry Job Start Date Job End Date Not on file Not on file Not on file Not on file documented as of this encounter Plan of Treatment Upcoming Encounters Date Type Department Care Team (Late st Contact Info) Description 01/04/2025 1:00 PM CDT Appointment [facility] [address] [place] [address] Callie Johnston MD [address] [place] [address] 01/25/2109 Scan HEALTH INFO SRVCS Scanned, Documents Lab (SCAN) documented as of this encounter Visit Diagnoses Diagnosis Age-related osteoporosis without current pathological fracture- Primary Senile osteoporosis documented in this encounter Additional Health Concerns Infection Onset Date Last Indicated Resolved Time COVID-19 Rule Out 09/11/2022 09/11/2022 09/11/2022 8:23 AM PHYSICIAN CHIEF OF PATHOLOGY COVID-19 Rule Out 09/11/2022 09/11/2022 09/13/2022 6:05 PM PHYSICIAN CHIEF OF PATHOLOGY COVID-19 Rule Out 08/01/2023 08/01/2023 08/01/2023 2:23 PM PHYSICIAN CHIEF OF PATHOLOGY COVID-19 Confirmed 08/01/2023 08/01/2023 12:32 AM PHYSICIAN CHIEF OF PATHOLOGY COVID-19 Rule Out 11/12/2023 11/12/2023 11/12/2023 8:00 AM PHYSICIAN CHIEF OF PATHOLOGY COVID-19 Rule Out 08/01/2024 08/01/2024 08/01/2024 7:43 AM PHYSICIAN CHIEF OF PATHOLOGY documented as of this encounter Care Teams Drapery Supervisor Relationship Specialty [place] [address] [place] [address] PCP - General FAMILY PRACTICE 10/01/21 Callie Johnston MD [address] [place] [address] [place] [phone] Consulting Physician SANAZ 06/27/20 documented as of this encounter
--- OUTSIDE RECORDS SUMMARY | 2024-11-11 08:49 | XMS_ITS | Encounter Summary ---
Author Organization [facility] Address [address] [place] [address] Care Team Providers Care Forest Law And Policy Professor Name Role Phone Don Rocha MD Primary Care Provider [phone] Callie Johnston MD Unavailable [phone] Sylvester Gallagher MD Primary Care Provider [phone] Encounter Details Date Type Department Care Team (Late st Contact Info) Description 01/19/2019 SOLAR MANUFACTURER'S REPRESENTATIVE ONLY [facility] Medical Group Priority Care - [address] [place] [address] Scanned, Documents Social History Tobacco Use Types Packs/Day Years Used Date Smoking Tobacco: Never Smokeless Tobacco: Never Alcohol Use Standard Drinks/Week Comments No 0 (1 standard drink = 0.6 oz pur e alcohol) AUDIT-C Answer Date Recorded Frequency of Alcohol Consumption Never 09/09/2018 Average Number of Drinks Not on file 019 Frequency of Binge Drinking Not on file 11/2018 Education Answer Date Recorded What is the highest level of school you have completed or the highest degree you have received? GED or equivalent 11/2018 Comments Unknown Sex and Gender Information Value Date Recorded Sex Assigned at Female 09/21/2018 7:05 PM INDIVIDUALIZED EDUCATION PLAN AIDE Legal Sex Female 7:34 PM CDT Gender Identity Female 09/21/2018 7:05 PM INDIVIDUALIZED EDUCATION PLAN AIDE Sexual Orientation Not on file Occupation Industry Job Start Date Job End Date Not on file Not on file Not on file Not on file documented as of this encounter OR Notes * Op Note - Tyler, Documents - 01/19/2019 12:00 AM CDT RACHANA EVANS MD: ACCT: [id number] ADMIT/SERVICE DATE: 01/19/19 DISCHARGE DATE: 01/19/19 : 1955 PT TYPE: DEP SDC SEX: F ORD SITE: [facility] CHART DOCUMENT OPERATION RECORD DATE OF OPERATION: 01/19/2019 HISTORY: 63-YEAR-OLD COMES IN FOR INCREASING GERD SYMPTOMS, KNOWN HISTORY OF GASTRIC POLYPS. PROCEDURE NOTE: INFORMED CONSENT OBTAINED EARLIER. THE PATIENT WAS SEEN IN THE OR AND PLACED IN THE SUPINE LATERAL DECUBITUS POSITION WITH SEDATION UNDER MAC ANESTHESIA. THE GIF-190 GASTROSCOPE WAS LUBRICATED AND INSERTED INTO THE HYPOPHARYNX AND ADVANCED BY DIRECT TECHNIQUE. UPPER, MIDDLE AND DISTAL ESOPHAGUS LOOKED NORMAL. UPON ENTERING THE STOMACH, THERE WAS A SMALL 3 CM HIATAL HERNIA PRESENT. THE STOMACH DISTENDED WELL. RETROFLEXED VIEWS OF THE CARDIA, FUNDUS AND ANGULARIS REVEALED NO SIGNIFICANT ABNORMALITIES. THERE WERE SEVERAL VERY TINY POLYPS IN THE STOMACH WHICH WERE SIMPLY REMOVED BY COLD FORCEPS. BLEEDING WAS MINIMAL. ANTRUM LOOKED NORMAL. THE 1ST AND 2ND PARTS OF THE DUODENUM LOOKED NORMAL. SCOPE WITHDRAWN. FINDINGS: 1. SEVERAL SMALL GASTRIC POLYPS WERE REMOVED BY COLD BIOPSY. 2. SMALL 3 CM HIATAL HERNIA. 3. REST OF THE EXAMINATION WAS NEGATIVE. PLAN: 1. CHECK PATHOLOGY. 2. CONTINUE PPI THERAPY FOR REFLUX DISEASE. ELECTRONICALLY SIGNED BY MADI YANEZ MD 01/19/2019 12:45 P PK/HH 01/19/2019 01/19/2019 11:50 A JOB NO: [id number] DOC NO: [id number] CC: MD DON OLSON MD documented in this encounter Plan of Treatment Upcoming Encounters Date Type Department Care Team (Late st Contact Info) Description 01/04/2025 1:[address] [facility] [address] [place] [address] Callie Johnston MD [address] [place] [address] 01/25/2109 Scan MG HEALTH INFO SRVCS Scanned, Documents Lab (SCAN) documented as of this encounter Visit Diagnoses Not on filedocumented in this encounter Additional Health Concerns Infection Onset Date Last Indicated Resolved Time COVID-19 Rule Out 09/11/2022 09/11/2022 09/11/2022 8:23 AM INDIVIDUALIZED EDUCATION PLAN AIDE COVID-19 Rule Out 09/11/2022 09/11/2022 09/13/2022 6:05 PM INDIVIDUALIZED EDUCATION PLAN AIDE COVID-19 Rule Out 08/01/2023 08/01/2023 08/01/2023 2:23 PM INDIVIDUALIZED EDUCATION PLAN AIDE COVID-19 Confirmed 08/01/2023 08/01/2023 12:32 AM INDIVIDUALIZED EDUCATION PLAN AIDE COVID-19 Rule Out 11/12/2023 11/12/2023 11/12/2023 8:00 AM INDIVIDUALIZED EDUCATION PLAN AIDE COVID-19 Rule Out 08/01/2024 08/01/2024 08/01/2024 7:43 AM INDIVIDUALIZED EDUCATION PLAN AIDE documented as of this encounter Care Teams Forest Law And Policy Professor Relationship Specialty Start Date End Date Don Rocha MD PCP - General INTERNAL MEDICINE 09/09/18 09/30/21 [place] [address] [place] [address] PCP - General FAMILY PRACTICE 10/01/21 Callie Johnston MD [address] [place] [address] [place] [address] Consulting Physician SANAZ 06/27/20 documented as of this encounter
--- OUTSIDE RECORDS SUMMARY | 2024-11-11 08:49 | XMS_ITS | Encounter Summary ---
Author Organization [facility] Address [address] [facility] [place] [address] Care Team Providers Care Print Machine Operator Name Role Phone Abner Graham MD Primary Care Provider [phone] Encounter Details Date Type Department Care Team (Late st Contact Info) Description 09/11/2021 Lab Requisition [facility] [address] [place] [address] Magdaleno Park MD [address] [place] [address] Social History Tobacco Use Types [...] Priority Date/Time Associated Diagnosis Comments DERMATOPATHOLOGY Routine 09/10/2021 12:0 0 AM ORNITHOLOGY TEACHER documented in this encounter Results * DERMATOPATHOLOGY (09/10/2021 12:00 AM ORNITHOLOGY TEACHER) Case Report Dermatopathology Report Case: [id number] Authorizing Provider: Magdaleno Park MD Collected: 09/10/2021 12:00 AM Ordering Location: [facility] Received: 09/11/2021 12:24 PM Pathologist: Benita Schilling MD Specimen: Skin, left inferior jawline 10:12 AM [facility] Final Diagnosis Specimen A. SKIN, left inferior jawline: SEBORRHEIC KERATOSIS, IRRITATED AND INFLAMED (L82.0) 10:12 AM [facility] Clinical History R/O BCC, ISK, inflamed nevus. 10:12 AM [facility] Gross Description Specimen A: Received is one formalin filled container labeled with the patient's name and designated left inferior jawline. The specimen consists of a shave biopsy measuring [id number]. Jar 0. 10:12 AM [facility] Microscopic Description Specimen A. SKIN, left inferior jawline: Sections show acanthosis, papillomatosis, hyperkeratosis, and squamous eddies. There is a lymphohistiocytic infiltrate within the papillary dermis. 10:12 AM [facility] Disclaimer An external and internal positive and negative controls are appropriate for the histochemical, immunohistochemical and immunofluorescence stain(s) in this case (if any), except where stated explicitly. The performance characteristics of the stain(s) cited in this report were developed and its performance characteristic determined by the Dermatopathology Laboratory at [facility], directed by Dr. Sebastian Hill. These tests need not be, and therefore are not, approved by the [place] Food and Drug Administration. The tests are used for clinical purposes. Billing Codes Specimen Charges Stain Charges 01448 1 2 10:12 AM [facility] Embedded Images 10:12 AM [facility] Pathology/Cytolog y TISSUE SPECIMEN FROM SKIN / Unknown 09/10/2021 09/11/2021 12:24 PM [facility] Magdaleno Park MD LAB - PATHOLOGY/CYTO LOGY ORDERABLES DERMATOPATHOLOGY LABORATORY [facility] - Department of Dermatology [address] [place] [id number] [place] [address] documented in this encounter Visit Diagnoses Not on filedocumented in this encounter Care Teams Print Machine Operator Relationship Specialty Start Date End Date Abner Graham MD [address] [place] [address] PCP - General 03/28/20 documented as of this encounter
--- OUTSIDE RECORDS SUMMARY | 2024-11-11 08:49 | XMS_ITS | Encounter Summary ---
Author Organization [facility] Address [address] [place] [address] Care Team Providers Care Clerical Coordinator Name Role Phone Bishop Rocha MD Primary Care Provider [phone] Callie Johnston MD Unavailable [phone] Sylvester Gallagher MD Primary Care Provider [phone] Encounter Details Date Type Department Care Team (Late st Contact Info) Description 01/14/2018 Abstract [facility] [address] [place] [address] , Generic ConversionMD Social History Tobacco Use Types Packs/Day Years Used Date Smoking Tobacco: Never Assessed Comments Unknown Sex and Gender Information Value Date Recorded Sex Assigned at Female 09/21/2018 7:05 PM SNOW GROOMER Legal Sex Female 7:34 PM CDT Gender Identity Female 09/21/2018 7:05 PM SNOW GROOMER Sexual Orientation Not on file documented as of this encounter Plan of Treatment Upcoming Encounters Date Type Department Care Team (Late st Contact Info) Description 01/04/2025 1:00 PM CDT Appointment [facility] [address] [place] [place], [place] [address] Callie Johnston MD [address] [place], [place] [address] 01/25/2109 Scan HEALTH INFO SRVCS Scanned, Documents Lab (SCAN) documented as of this encounter Visit Diagnoses Not on filedocumented in this encounter Additional Health Concerns Infection Onset Date Last Indicated Resolved Time COVID-19 Rule Out 09/11/2022 09/11/2022 09/11/2022 8:23 AM SNOW GROOMER COVID-19 Rule Out 09/11/2022 09/11/2022 09/13/2022 6:05 PM SNOW GROOMER COVID-19 Rule Out 08/01/2023 08/01/2023 08/01/2023 2:23 PM SNOW GROOMER COVID-19 Confirmed 08/01/2023 08/01/2023 12:32 AM SNOW GROOMER COVID-19 Rule Out 11/12/2023 11/12/2023 11/12/2023 8:00 AM SNOW GROOMER COVID-19 Rule Out 08/01/2024 08/01/2024 08/01/2024 7:43 AM SNOW GROOMER documented as of this encounter Care Teams Clerical Coordinator Relationship Specialty Start Date End Date Bishop Rocha MD PCP - General INTERNAL MEDICINE 09/09/18 09/30/21 [place] [address] [place], [place] [address] PCP - General FAMILY PRACTICE 10/01/21 Callie Johnston MD [address] [place] [address] [place] [address] Consulting Physician SANAZ 06/27/20 documented as of this encounter
--- OUTSIDE RECORDS SUMMARY | 2024-11-11 08:49 | XMS_ITS | Patient Health Summary ---
Author Organization [facility] Address [address] [place] [address] Care Team Providers Care Boatswain'S Mate Name Role Phone Abner Graham MD Primary Care Provider [phone] [facility],non-owned Affiliates and Associated Physician Practices is amultiple site organization consisting of ambulatory clinics and hospital sitesin [place], [place], [place] and [place]. This disclosure is being madepursuant to the Care Everywhere program and may not contain all information available regarding this patient. Last updated 18.[facility] Allergies * Ceftriaxone Sodium(Itching) Medications * Be aware that medications may not be up to date on this document. Alwaysverify current medications with the patient. * esomeprazole (NEXIUM) 40 MG capsule Take 40 mg by mouth daily before breakfast. * omeprazole (PRILOSEC) 20 MG capsule Take 20 mg by mouth. prn * ezetimibe-simvastatin (VYTORIN) 10-10 MG tablet Take 1 Tab by mouth at bedtime. * Other Mvi with potasium, am * Other Mvi with b c calicium am * docusate sodium (COLACE) 100 MG capsule(Started 01/08/2010) Take 1 Cap by mouth 2 times daily. 2 refills left Active Problems Problem Noted Date Diagnosed Date [...] Mass Index 26.46 11/21/2013 9:38 AM CDT Procedures * DERMATOPATHOLOGY(Performed 07/23/2022) * DERMATOPATHOLOGY(Performed 09/10/2021) * DERMATOPATHOLOGY(Performed 03/27/2020) * DERMATOPATHOLOGY(Performed 02/23/2013) * DERMATOPATHOLOGY(Performed 01/11/2013) * CARDIAC RHYTHM STRIP ORDER(Performed 01/10/2010) * GROSS + MICRO EXAM(Performed 01/07/2010) * GROSS + MICRO EXAM(Performed 01/07/2010) Performed for Uterovaginal Prolapse, Incomplete * TYPE + SCREEN PANEL(Performed 12/28/2009) Performed for Pre-Op Testing * BASIC METABOLIC PANEL (CALCIUM TOTAL)(Performed 12/28/2009) Performed for Pre-Op Testing * CBC W/O DIFFERENTIAL(Performed 12/28/2009) Performed for Pre-Op Testing * BLOOD TYPE VERIFICATION(Performed 12/28/2009) Performed for Unspecified Pre-Operative Examination * CYTOLOGY NON-PROPOSAL MANAGER WRITER REFLEXED(Performed 11/20/2009) * CYTOLOGY URINE(Performed 11/20/2009) * CULTURE URINE COMPREHENSIVE(Performed 08/22/2009) * URINALYSIS - POINT OF CARE (AMB) [facility](Performed 09/07/1998) Results * DERMATOPATHOLOGY (07/23/2022 12:00 AM SYSTEMS ADMINISTRATOR) Only the most recent of5 resultswithin the time period is included. Case Report Dermatopathology Report Case: [id number] Authorizing Provider: Magdaleno Park MD Collected: 07/23/2022 12:00 AM Ordering Location: [facility] DermPath Lab Received: 07/24/2022 01:34 PM Pathologist: Bernadette Hill MD Specimens: A) - Skin, right upper sternal border B) - Skin, right upper chest 2 4:37 PM [facility] DERMATOPATHOLOGY LABORATORY Final Diagnosis Specimen A. SKIN, right upper sternal border: LICHEN PLANUS-LIKE KERATOSIS (BENIGN LICHENOID KERATOSIS) (L82.1) Specimen B. SKIN, right upper chest: LICHEN PLANUS-LIKE KERATOSIS (BENIGN LICHENOID KERATOSIS) (L82.1) 2 4:37 PM [facility] DERMATOPATHOLOGY LABORATORY Clinical History A-B: R/O BCC 2 4:37 PM [facility] DERMATOPATHOLOGY LABORATORY Gross Description Specimen A: Received is one formalin filled container labeled with the patient's name and designated right upper sternal border. The specimen consists of a shave biopsy measuring [id number]. Jar 0. Specimen B: Received is one formalin filled container labeled with the patient's name and designated right upper chest. The specimen consists of a shave biopsy measuring [id number]. Jar 0. 2 4:37 PM [facility] DERMATOPATHOLOGY LABORATORY Microscopic Description Specimen A. SKIN, right upper sternal border: The epidermis is mildly acanthotic. There is a lichenoid infiltrate with vacuolar changes of basilar keratinocytes and scattered necrotic keratinocytes. Specimen B. SKIN, right upper chest: The epidermis is mildly acanthotic. There is a lichenoid infiltrate with vacuolar changes of basilar keratinocytes and scattered necrotic keratinocytes. 2 4:37 PM [facility] DERMATOPATHOLOGY LABORATORY Disclaimer An external and internal positive and negative controls are appropriate for the histochemical, immunohistochemical and immunofluorescence stain(s) in this case (if any), except where stated explicitly. The performance characteristics of the stain(s) cited in this report were developed and its performance characteristic determined by the Dermatopathology Laboratory at [facility], directed by Dr. Sebastian Hill. These tests need not be, and therefore are not, approved by the [place] Food and Drug Administration. The tests are used for clinical purposes. Billing Codes Specimen Charges Stain Charges 19495 73125 1 1 2 4:37 PM SYSTEMS ADMINISTRATOR DERMATOPATHOLOGY LABORATORY Embedded Images 2 4:37 PM SYSTEMS ADMINISTRATOR DERMATOPATHOLOGY LABORATORY Pathology/Cytology TISSUE SPECIMEN FROM SKIN / Unknown 07/23/2022 07/24/2022 1:34 PM SYSTEMS ADMINISTRATOR Miscellaneous samples (specimen) TISSUE SPECIMEN FROM SKIN / Unknown 07/23/2022 07/24/2022 1:34 PM SYSTEMS ADMINISTRATOR Magdaleno Park MD LAB - PATHOLOGY/CYTO LOGY ORDERABLES DERMATOPATHOLOGY LABORATORY [facility] - Department of Dermatology [address], [address] [phone] * CARDIAC RHYTHM STRIP ORDER (01/10/2010 10:02 PM CDT) Narrative 01/10/2010 10:02 PM CDT Ordered by an unspecified provider. Transcriptions Document, Scanned - 01/07/2010 12:00 AM CDT Scanned Document CARDIAC SERVICES ORD ERABLES * GROSS + MICRO EXAM (01/07/2010 12:00 AM CDT) Only the most recent of2 resultswithin the time period is included. Result CASE NUMBER [id number] Comment: ORDERING PHYSICIAN HASMUKH AMBRIZ [facility] SPECIMEN TYPE Uterus-uterus / cervix Date 01/07/2010 Physician Bri Ambriz Gross Description The specimen is received in a formalin filled container labeled with the patient's name and uterus and cervix . It consists of a 70 gram uterine corpus with attached cervix. It measures 8.8 x 3.7 x 3.3 cm. Right and left adnexa are absent. The serosa is smooth and glistening with no obvious adhesions. The ectocervix measures 4.2 cm. in diameter. The external os is round, 2 mm. in diameter and is surrounded by punctate areas of hemorrhage. The endocervical canal measures 4 cm. in length. The uterine cavity measures 3.5 x 2 cm. and is lined by glistening soft red gonzalez endometrium measuring up to 0.2 cm. in thickness. The myometrium has a maximum thickness of 1.9 cm. No discrete nodules or lesions are seen on the myometrial cut surfaces. Account Financial Manager sections are submitted as follows A and B - cervix. C and D - endomyometrium and serosa. LW/bk Microscopic Exam Sections of the cervix show benign unremarkable histology. The squamous epithelium shows normal maturation. The endocervical glandular epithelium shows benign histology. The endomyometrium shows weakly proliferative endometrium and benign myometrium. Malignancy is not seen. MC/na Diagnosis I. Uterus, hysterectomy -- Cervix with no pathologic diagnosis -- Weakly proliferative endometrium -- Myometrium and serosa with no pathologic diagnosis MC/na Livestock Yard Attendant na Pathologist Annika Fournier MD [place]. 01/08/2010 1011 <2> CPT code 42524 MISCELLANEOUS SAMPLE S / Unknown 01/07/2010 01/07/2010 2:27 PM CDT Historical Provider LAB - PATHOLOGY/C YTOLOGY ORDERABLES * TYPE + SCREEN PANEL (12/28/2009 12:45 PM CDT) ABO Rh O Pos SEE BELOW [facility] Comment: Weak D testing is not performed at [facility] Antibody Screen Neg [facility] Previous History Check Done No historical blood type. Blood type confirmation needed prior to transfusion. [facility] BLOOD SPECIMEN / Unknown 12/28/2009 12:45 PM CDT 12/28/2009 1:03 PM CDT Hasmukh Ambriz MD LAB - BLOOD BANK ORD ERABLES [facility] [address] [place] [address] * CBC W/O DIFFERENTIAL (12/28/2009 12:45 PM CDT) WBC 4.3 4.0 - 10.0 K/CUMM [facility] RBC 4.74 3.80 - 5.80 M/CUMM [facility] Hemoglobin 14.8 12.0 - 16.0 gm/dl [facility] Hematocrit 43.8 37.0 - 47.0 % [facility] MCV 92.4 80.0 - 100.0 fl [facility] MCH 31.2 26.0 - 34.0 pg [facility] MCHC 33.8 31.0 - 37.0 gm/dl [facility] RDW 12.6 11.5 - 14.5 % [facility] Platelet Count 245 150 - 400 K/CUMM [facility] BLOOD SPECIMEN / Unknown 12/28/2009 12:45 PM CDT 12/28/2009 1:03 PM CDT Hasmukh Ambriz MD LAB - HEMATOLOGY ORD ERABLES Performing Organization Address [facility] Co de Phone Number [facility] [address] [place] [address] * (ABNORMAL) BASIC METABOLIC PANEL (CALCIUM TOTAL) (12/28/2009 12:45 PM CDT) Sodium 141 137 - 145 mmol/L [facility] Potassium 4.7 3.6 - 5.0 mmol/L [facility] Chloride 103 98 - 107 mmol/L [facility] BUN 17 7 - 17 mg/dl [facility] Creatinine 0.91 0.52 - 1.04 mg/dl [facility] Glucose 97 65 - 105 mg/dl [facility] CO2 31(H) 22 - 30 mmol/L [facility] Calcium 9.3 8.4 - 10.2 mg/dl [facility] eGFR by MDRD 64 >60 mL/min/1.7 3m2 [facility] Comment eGFR [facility] Comment: The eGFR does not apply to patients who are younger than 18 or older than 70. BLOOD SPECIMEN / Unknown 12/28/2009 12:45 PM CDT 12/28/2009 1:03 PM CDT Hasmukh Ambriz MD LAB - CHEMISTRY ORDE RABLUIS FERNANDO Performing Organization Address [facility] Co de Phone Number [facility] [address] [place] [id number] * BLOOD TYPE VERIFICATION (12/28/2009 12:40 PM CDT) ABO Rh O Pos SEE BELOW [facility] Comment: Weak D testing is not performed at [facility] BLOOD SPECIMEN / Unknown 12/28/2009 12:40 PM CDT 12/28/2009 1:51 PM CDT Hasmukh Ambriz MD LAB - BLOOD BANK ORD ERABLES Performing Organization Address [facility] Co de Phone Number [facility] [address] [place] [address] * CYTOLOGY URINE (11/20/2009 2:25 PM CDT) Clinical Information [facility] ([facility]) Comment:Information not prov ided Pathologist SEE NOTE [facility] ([facility]) Comment: Checo Anderson M.D., Board Certified in Anatomic Pathology and Cytopathology. (electronic signature) Test Performed at: [facility] [address] [place] [phone] ALEXANDER CHOUDHARY MD 11/20/2009 2:25 PM CDT 11/22/2009 4:02 AM CDT Hasmukh Ambriz MD LAB - PATHOLOGY/CYTO LOGY ORDERABLES Performing Organization Address [facility] de Phone Number [facility] ([facility]) * CYTOLOGY NON-PROPOSAL MANAGER WRITER REFLEXED (11/20/2009 2:25 PM CDT) Source SEE NOTE [facility] ([facility]) Comment:Bladder washing: Gross Description SEE NOTE [facility] ([facility]) Comment: Received are 50 cc of fixed clear colorless fluid. A ThinPrep slide is prepared. Diagnosis SEE NOTE [facility] ([facility]) Comment:- Negative for malig nant cells, see comment. Comment SEE NOTE [facility] ([facility]) Comment: The specimen reveals moderate numbers of predominantly reactive urothelial cells. Moderate numbers of bland squamous cells are present. Rare acute inflammatory cells and red blood cells are present. Features diagnostic of malignancy are not identified. (GCM/ml) REPORT COMMENT: PREFERRED LAB:->[facility] Test Performed at: [facility] [address] [place] [phone] ALEXANDER CHOUDHARY MD 11/20/2009 2:25 PM CDT 11/22/2009 4:02 AM CDT Hasmukh Ambriz MD LAB - PATHOLOGY/CYTO LOGY ORDERABLES Performing Organization Address [facility] Co de Phone Number [facility] ([facility]) * CULTURE URINE COMPREHENSIVE (08/22/2009) Culture SEE NOTE [facility] ([facility]) Comment: CULTURE, URINE, SPECIAL MICRO NUMBER: [id number] TEST STATUS: FINAL SPECIMEN SOURCE: URINE SPECIMEN COMMENTS: ADEQUATE RESULT: NO GROWTH Test Performed at: [facility] [address] [address] ALEXANDER CHOUDHARY MD 08/22/2009 08/22/2009 10: 59 PM SYSTEMS ADMINISTRATOR Hasmukh Ambriz MD LAB - MICROBIOLOGY O RDERABLES [facility] ([facility]) * URINALYSIS - POINT OF CARE (AMB) [facility] (09/07/1998 12:00 AM SYSTEMS ADMINISTRATOR) Glucose UA neg [facility] Bilirubin UA POCT neg [facility] Ketones UA POCT neg [facility] Specific [place] UA 1.025 [facility] Blood Urine POCT + [facility] pH UA 5.0 [facility] Protein UA neg [facility] Urobilinogen UA neg [facility] Nitrite UA neg [facility] WBC UA neg [facility] Urine specimen (specimen) 09/07/1998 Hasmukh Ambriz MD LAB - POINT OF CARE ORDERABLES [facility] Care Teams Boatswain'S Mate Relationship Specialty Start Date End Date Abner Graham MD [address] [place] [address] PCP - General 03/28/20
--- OUTSIDE RECORDS SUMMARY | 2024-11-11 08:49 | XMS_ITS | Encounter Summary ---
Author Organization [facility] Address [address] [place] [address] Care Team Providers Care Immunohematologist Name Role Phone Callie Johnston MD Unavailable [phone] Sylvester Gallagher MD Primary Care Provider [phone] Encounter Details Date Type Department Care Team (Late st Contact Info) Description 08/18/[address] [facility] Admitting [address] [place] [address] [facility] Discharge Follow-up Social History Tobacco Use Types Packs/Day Years [...] please move on to questions 3-9 0 07/28/2022 Education Answer Date Recorded What is the highest level of school you have completed or the highest degree you have received? GED or equivalent 11/2018 Comments No Sex and Gender Information Value Date Recorded Sex Assigned at Female 09/21/2018 7:05 PM MILITARY COMMUNICATIONS SPECIALIST Legal Sex Female 7:34 PM CDT Gender Identity Female 09/21/2018 7:05 PM MILITARY COMMUNICATIONS SPECIALIST Sexual Orientation Not on file Occupation Industry Job Start Date Job End Date Not on file Not on file Not on file Not on file COVID-19 Exposure Response Date Recorded In the last 10 days, have yo u been in contact with someone who was confirmed or suspected to have Coronavirus/COVID-19? No / Unsure 2022 8:03 PM MILITARY COMMUNICATIONS SPECIALIST documented as of this encounter Functional Status * RETIRED Are you deaf or do you have serious difficulty hearing Answer Date of Assessment Author Status Yes 08/15/2022 4:00 AM MILITARY COMMUNICATIONS SPECIALIST Activ e * RETIRED Are you blind or do you have serious difficulty seeing, even when wearing glasses? Answer Date of Assessment Author Status No 08/15/2022 4:00 AM MILITARY COMMUNICATIONS SPECIALIST Activ e * Do you have serious difficulty walking or climbing stairs? Answer Date of Assessment Author Status No 08/15/2022 4:00 AM MILITARY COMMUNICATIONS SPECIALIST Heather Anderson RN Active * Do you have difficulty dressing or bathing? Answer Date of Assessment Author Status No 08/15/2022 4:00 AM MILITARY COMMUNICATIONS SPECIALIST Heather Anderson RN Active * Because of a physical, mental, or emotional condition, do you have difficulty doing errands alone such as visiting a doctor's office or shopping? Answer Date of Assessment Author Status No 08/15/2022 4:00 AM MILITARY COMMUNICATIONS SPECIALIST Heather Anderson RN Active documented as of this encounter Mental Status * Because of a physical, mental, or emotional condition, do you have serious difficulty concentrating, remembering, or making decisions? Answer Entry Date Author Status No 08/15/2022 4:00 AM MILITARY COMMUNICATIONS SPECIALIST Heather Anderson RN Active documented in this encounter Plan of Treatment Upcoming Encounters Date Type Department Care Team (Late st Contact Info) Description 01/04/2025 1:00 PM CDT Appointment [facility] [address] [place] [address] Callie Johnston MD [address] [place] [address] 01/25/2109 Scan HEALTH INFO SRVCS Scanned, Documents Lab (SCAN) documented as of this encounter Visit Diagnoses Not on filedocumented in this encounter Additional Health Concerns Infection Onset Date Last Indicated Resolved Time COVID-19 Rule Out 09/11/2022 09/11/2022 09/11/2022 8:23 AM MILITARY COMMUNICATIONS SPECIALIST COVID-19 Rule Out 09/11/2022 09/11/2022 09/13/2022 6:05 PM MILITARY COMMUNICATIONS SPECIALIST COVID-19 Rule Out 08/01/2023 08/01/2023 08/01/2023 2:23 PM MILITARY COMMUNICATIONS SPECIALIST COVID-19 Confirmed 08/01/2023 08/01/2023 12:32 AM MILITARY COMMUNICATIONS SPECIALIST COVID-19 Rule Out 11/12/2023 11/12/2023 11/12/2023 8:00 AM MILITARY COMMUNICATIONS SPECIALIST COVID-19 Rule Out 08/01/2024 08/01/2024 08/01/2024 7:43 AM MILITARY COMMUNICATIONS SPECIALIST documented as of this encounter Care Teams Immunohematologist Relationship Specialty [place] [address] [place] [address] PCP - General FAMILY PRACTICE 10/01/21 Callie Johnston MD [address] [place] [address] [place] [address] Consulting Physician SANAZ 06/27/20 documented as of this encounter
--- OUTSIDE RECORDS SUMMARY | 2024-11-11 08:49 | XMS_ITS | Encounter Summary ---
Author Organization [facility] Address [address] [place] [address] Care Team Providers Care Backhoe Operator Name Role Phone Abner Graham MD Primary Care Provider [phone] Encounter Details Date Type Department Care Team (Late st Contact Info) Description 07/24/2022 Lab Requisition [facility] DermPath Lab [address] [facility] [place] [address] Magdaleno Park MD [address] [place] [address] Social History Tobacco Use Types [...] Priority Date/Time Associated Diagnosis Comments DERMATOPATHOLOGY Routine 07/23/2022 12:0 0 AM BOX LINING MACHINE FEEDER documented in this encounter Results * DERMATOPATHOLOGY (07/23/2022 12:00 AM BOX LINING MACHINE FEEDER) Case Report Dermatopathology Report Case: [id number] Authorizing Provider: Magdaleno Park MD Collected: 07/23/2022 12:00 AM Ordering Location: [facility] DermPath Lab Received: 07/24/2022 01:34 PM Pathologist: Bernadette Hill MD Specimens: A) - Skin, right upper sternal border B) - Skin, right upper chest 2 4:37 PM [facility] DERMAT[facility] Final Diagnosis Specimen A. SKIN, right upper sternal border: LICHEN PLANUS-LIKE KERATOSIS (BENIGN LICHENOID KERATOSIS) (L82.1) Specimen B. SKIN, right upper chest: LICHEN PLANUS-LIKE KERATOSIS (BENIGN LICHENOID KERATOSIS) (L82.1) 2 4:37 PM [facility] DER[facility] Clinical History A-B: R/O BCC 2 4:37 PM [facility] Gross Description Specimen A: Received is one formalin filled container labeled with the patient's name and designated right upper sternal border. The specimen consists of a shave biopsy measuring [id number]. Jar 0. Specimen B: Received is one formalin filled container labeled with the patient's name and designated right upper chest. The specimen consists of a shave biopsy measuring [id number]. Jar 0. 2 4:37 PM [facility] DERMATOPATH[facility]Y [facility] Microscopic Description Specimen A. SKIN, right upper sternal border: The epidermis is mildly acanthotic. There is a lichenoid infiltrate with vacuolar changes of basilar keratinocytes and scattered necrotic keratinocytes. Specimen B. SKIN, right upper chest: The epidermis is mildly acanthotic. There is a lichenoid infiltrate with vacuolar changes of basilar keratinocytes and scattered necrotic keratinocytes. 2 4:37 PM [facility] Disclaimer An external and internal positive and negative controls are appropriate for the histochemical, immunohistochemical and immunofluorescence stain(s) in this case (if any), except where stated explicitly. The performance characteristics of the stain(s) cited in this report were developed and its performance characteristic determined by the Dermatopathology Laboratory at [facility], directed by Dr. Sebastian Hill. These tests need not be, and therefore are not, approved by the [place] Food and Drug Administration. The tests are used for clinical purposes. Billing Codes Specimen Charges Stain Charges 86537 79911 1 1 2 4:37 PM [facility] Embedded Images 4:37 PM BOX LINING MACHINE FEEDER DERMATOPATHOLOGY LABORATORY Pathology/Cytology TISSUE SPECIMEN FROM SKIN / Unknown 07/23/2022 07/24/2022 1:34 PM BOX LINING MACHINE FEEDER Miscellaneous samples (specimen) TISSUE SPECIMEN FROM SKIN / Unknown 07/23/2022 07/24/2022 1:34 PM BOX LINING MACHINE FEEDER Magdaleno Park MD LAB - PATHOLOGY/CYTO LOGY ORDERABLES DERMATOPATHOLOGY LABORATORY [facility] - Department of Dermatology [facility] Special[facility] [address] [place] [address], [address] [phone] documented in this encounter Visit Diagnoses Not on filedocumented in this encounter Care Teams Backhoe Operator Relationship Specialty Start Date End Date Abner Graham MD [address] [place] [address] PCP - General 03/28/20 documented as of this encounter
== END 2024-11-11 08:32 | disposition home or self-care (01) ==
PROVIDERS: PCP Family Medicine; Visit Provider Orthopaedic Surgery
DX: M16.11 Unilateral primary osteoarthritis, right hip (principal)
CPT/HCPCS: 73700